=== PATIENT | female | born 1950 | race Caucasian/White ===

== ENCOUNTER 2017-06-21 12:39 | Emergency (ER) | payer MEDICARE, OTHER ==
[~2017-06-21] VITALS: Ht 160 cm; Wt 49.4 kg
[~2017-06-21 12:39] MED LIST: NUCYNTA75 MG PO; SPIRIVA18 MCG INH; TRAZODONE HCL50 MG PO; VENTOLIN HFA18 GM INH
[2017-06-21] MEDS ORDERED: AZITHROMYCIN250 MG PO (13:06)
[2017-06-21] MEDS ORDERED: BROMFED DM COU118 ML PO (13:06)
[2017-06-21] MEDS ORDERED: CRESTOR10 MG (14:40)
[2017-06-21] MEDS ORDERED: PLAQUENIL200 MG PO (14:40)
[2017-06-21] MEDS ORDERED: PREDNISONE10 MG PO (14:40)
[2017-06-21] MEDS ORDERED: LISINOPRIL10 MG PO (14:40)
[2017-06-21] MEDS ORDERED: CELLCEPT200 MG/1 M (14:40)
== END 2017-06-21 13:13 | disposition home or self-care (01) ==
LOC: FSED 12:39
DX: J00 Acute nasopharyngitis [common cold] (principal); J20.8 Acute bronchitis due to other specified organisms; G89.29 Other chronic pain; J44.9 Chronic obstructive pulmonary disease, unspecified; E78.5 Hyperlipidemia, unspecified; J84.10 Pulmonary fibrosis, unspecified; I73.00 Raynaud's syndrome without gangrene
CPT/HCPCS: 99282

== ENCOUNTER 2018-04-13 12:17 | Emergency (ER) | payer MEDICARE, OTHER ==
[~2018-04-13] VITALS: Ht 160 cm; Wt 50.3 kg
[~2018-04-13 12:17] MED LIST changes: +AUGMENTIN 500-1 EACH PO; +AZITHROMYCIN250 MG PO; +BROMFED DM COU118 ML PO; +CELLCEPT200 MG/1 M; +CELLCEPT500 MG PO; +CRESTOR10 MG; +LISINOPRIL10 MG PO; +NORCO 5-325 TA1 EACH PO; +PLAQUENIL200 MG PO; +PREDNISONE10 MG PO
--- OUTSIDE RECORDS SUMMARY | 2018-04-13 12:20 | XMS REPORT ---
Author Author Tracey High Organization [employer] Address Unknown Phone Unavailable Care Team Providers Care Sumo Wrestler Name Role Phone GoldygiuseppeTracey CP Unavailable Allergies, Adverse Reactions, Alerts Substance Reaction Event Type Celebrex Heartburn Non Drug Allergy Problems Problem Type Condition Code Onset Dates Condition Status Assessment Dysuria R30.0 Active Assessment Raynaud''s phenomenon without gangrene I73.00 Active Assessment ILD (interstitial lung disease) J84.9 Active Assessment Osteoporosis screening Z13.820 Active Problem Other insomnia G47.09 Active Problem ILD (interstitial lung disease) J84.9 Active Problem Osteoporosis M81.0 Active Problem Inflammatory arthritis M19.90 Active Assessment MCTD (mixed connective tissue disease) M35.1 Active Problem Raynaud''s phenomenon without gangrene I73.00 Active Problem MCTD (mixed connective tissue disease) M35.1 Active Medications Medication Code System Code Instructions Start Date End Date Status Dosage Hydroxychloroquine Sulfate [facility] 73169862407 200 MG Orally Once a day Mar 13, 2017 Active 1 tablet with food or milk PredniSONE NDC 0 10 MG Orally Once a day May 05, 2017 Active 4 tabs daily x 2 wks then 3 tabs daily x 2 weeks then 2 tabs daily Albuterol Sulfate [facility] [address]-05 108 (90 Base) MCG/ACT Inhalation every 4 hrs Active 1 puff as needed Mycophenolate Mofetil ND 76846483436 500 MG Orally Twice a day Apr 15, 2017 Active 1 tablets twice a day for 1 week then 2 tablets Spiriva HandiHaler ND 44842122312 18 MCG Inhalation Active as directed Trazodone HCl ND 20606633089 100 MG Orally Once a day Active 1 tablet at bedtime Ventolin HFA ND 21579155295 108 (90 Base) MCG/ACT Inhalation every 4 hrs Active 2 puffs as needed Nucynta ER ND 94155343601 75 MG Orally every 12 hrs Active 1 tablet Lisinopril [facility] 42566495848 2.5 MG Orally Once a day Apr 16, 2017 Active 1 tablet Bactrim DS [facility] 69178240709 800-160 MG Orally Thursday, Thursday, FridaysMay 05, 2017 Active 1 tablet Vital Signs Date/Time: May 05, 2017 BMI 18.60 Index Weight 105 lbs Height 63 in Temperature 97.7 F Cardiac Monitoring Heart Rate 88 /min Blood Pressure Diastolic 78 mm Hg Blood Pressure Systolic 108 mm Hg Results No Known Results Summary Purpose [employer] Submission
--- OUTSIDE RECORDS SUMMARY | 2018-04-13 12:20 | XMS REPORT ---
Author Author Tracey High Organization [employer] Address Unknown Phone Unavailable Care Team Providers Care Assembler Lay Ups Name Role Phone Tracey High CP Unavailable Allergies No Known Allergies Problems Problem Type Condition Code Onset Dates Condition Status Problem Other insomnia G47.09 Active Problem ILD (interstitial lung disease) J84.9 Active Problem Osteoporosis M81.0 Active Problem Inflammatory arthritis M19.90 Active Assessment Osteoporosis M81.0 Active Problem Raynaud''s phenomenon without gangrene I73.00 Active Problem MCTD (mixed connective tissue disease) M35.1 Active Medications Medication Code System Code Instructions Start Date End Date Status Dosage Alendronate Sodium [facility] 05141098162 70 MG Orally Once a week May 06, 2017 Active 1 tablet Results No Known Results Summary Purpose [employer] Submission
--- OUTSIDE RECORDS SUMMARY | 2018-04-13 12:20 | XMS REPORT ---
Author Felix Parmar Organization [employer] Address Unknown Phone Unavailable Care Team Providers Care Bellmaker Name Role Phone Felix Benavidez CP Unavailable Allergies No Known Allergies Problems Problem Type Condition Code Onset Dates Condition Status Problem Other insomnia G47.09 Active Problem ILD (interstitial lung disease) J84.9 Active Problem Osteoporosis M81.0 Active Problem Inflammatory arthritis M19.90 Active Problem Raynaud''s phenomenon without gangrene I73.00 Active Problem MCTD (mixed connective tissue disease) M35.1 Active Medications Medication Code System Code Instructions Start Date End Date Status Dosage Alendronate Sodium [facility] 12974457076 70 MG Orally Once a week May 06, 2017 Active 1 tablet Results No Known Results Summary Purpose [employer] Submission
--- OUTSIDE RECORDS SUMMARY | 2018-04-13 12:20 | XMS REPORT ---
Author Author Tracey High Organization [employer] Address Unknown Phone Unavailable Care Team Providers Care Lead Network Engineer Name Role Phone GoldygiuseppeFaustinahal CP Unavailable Allergies, Adverse Reactions, Alerts Substance Reaction Event Type Celebrex Heartburn Non Drug Allergy Problems Problem Type Condition Code Onset Dates Condition Status Assessment Other insomnia G47.09 Active Assessment ILD (interstitial lung disease) J84.9 Active Assessment Raynaud''s phenomenon without gangrene I73.00 Active Problem ILD (interstitial lung disease) J84.9 Active Problem Raynaud''s phenomenon without gangrene I73.00 Active Problem Other insomnia G47.09 Active Assessment Inflammatory arthritis M19.90 Active Assessment MCTD (mixed connective tissue disease) M35.1 Active Problem MCTD (mixed connective tissue disease) M35.1 Active Problem Inflammatory arthritis M19.90 Active Medications Medication Code System Code Instructions Start Date End Date Status Dosage Spiriva HandiHaler [facility] 61874477759 2.5 MCG Inhalation Active as directed Trazodone HCl ND 77158496936 100 MG Orally Once a day Active 1 tablet at bedtime Hydroxychloroquine Sulfate ND 78864819799 200 MG Orally Once a day Mar 13, 2017 Active 1 tablet with food or milk PredniSONE NDC 0 10 MG Orally Once a day Apr 16, 2017 Active 5 tablets Lisinopril ND 60395896677 2.5 MG Orally Once a day Apr 16, 2017 Active 1 tablet Bactrim DS ND 00953824993 800-160 MG Orally on Wednesdays and FridaysApr 16, 2017 Active 1 tablet Mycophenolate Mofetil ND 89961545091 500 MG Orally Twice a day Apr 15, 2017 Active 2 tablets twice a day for 1 week then 3 tablets Melatonin ND 71048490308 1 MG Orally Once a day OTC Apr 15, 2017 Active 1-3 tablets at bedtime as needed with food Nucynta ER ND 36566726964 75 MG Orally every 12 hrs Active 1 tablet Ventolin HFA [facility] 74481616516 108 (90 Base) MCG/ACT Inhalation every 4 hrs Active 2 puffs as needed Vital Signs Date/Time: Apr 15, 2017 BMI 18.78 Index Weight 106 lbs Height 63 in Temperature 98.6 F Cardiac Monitoring Heart Rate 104 /min Blood Pressure Diastolic 86 mm Hg Blood Pressure Systolic 142 mm Hg Results No Known Results Summary Purpose [employer] Submission
--- OUTSIDE RECORDS SUMMARY | 2018-04-13 12:20 | XMS REPORT ---
Author Felix Parmar Organization [employer] Address Unknown Phone Unavailable Care Team Providers Care Engineering Leader Name Role Phone Felix Benavidez CP Unavailable Allergies No Known Allergies Problems Problem Type Condition Code Onset Dates Condition Status Problem Vitamin D deficiency E55.9 Active Problem Other insomnia G47.09 Active Problem Osteoporosis M81.0 Active Problem MCTD (mixed connective tissue disease) M35.1 Active Problem Inflammatory arthritis M19.90 Active Problem ILD (interstitial lung disease) J84.9 Active Problem Raynaud''s phenomenon without gangrene I73.00 Active Medications No Known Medications Results No Known Results Summary Purpose [employer] Submission
--- OUTSIDE RECORDS SUMMARY | 2018-04-13 12:20 | XMS REPORT ---
Author Author Bruce Johnson [facility] [place] [employer] Address Unknown Phone Unavailable Care Team Providers Care General Ledger Bookkeeper Name Role Phone Bruce Johnson CP Unavailable Allergies No Known Allergies Problems [...] Date End Date Status Dosage Hydroxychloroquine Sulfate [facility] 52682121055 200 MG Orally Once a day May 21, 2017 Active 1 tablet with food or milk Results No Known Results Summary Purpose [employer] Submission
--- OUTSIDE RECORDS SUMMARY | 2018-04-13 12:20 | XMS REPORT ---
Author Felix Parmra Organization [employer] Address Unknown Phone Unavailable Care Team Providers Care Pastry Supervisor Name Role Phone Felix Benavidez CP Unavailable Allergies No Known Allergies Problems Problem Type Condition Code Onset Dates Condition Status Problem ILD (interstitial lung disease) J84.9 Active Problem Raynaud''s phenomenon without gangrene I73.00 Active Problem Other insomnia G47.09 Active Problem MCTD (mixed connective tissue disease) M35.1 Active Problem Inflammatory arthritis M19.90 Active Medications No Known Medications Results No Known Results Summary Purpose [employer] Submission
--- OUTSIDE RECORDS SUMMARY | 2018-04-13 12:20 | XMS REPORT ---
Author Author Bruce Johnson [facility] [employer] Address Unknown Phone Unavailable Care Team Providers Care Job Analysis Manager Name Role Phone Bruce Johnson CP Unavailable [...] Instructions Start Date End Date Status Dosage Fluconazole [facility] 48253059161 200 MG Orally Once a day May 22, 2017 Active 1 tablet Results No Known Results Summary Purpose [employer] Submission
--- OUTSIDE RECORDS SUMMARY | 2018-04-13 12:20 | XMS REPORT ---
Author Author Tracey High Organization [employer] Address Unknown Phone Unavailable Care Team Providers Care Hair Designer Name Role Phone GoldygiuseppeTracey CP Unavailable Allergies, Adverse Reactions, Alerts Substance Reaction Event Type Celebrex Heartburn Non Drug Allergy Problems Problem Type Condition Code Onset Dates Condition Status Problem MCTD (mixed connective tissue disease) M35.1 Active Problem Inflammatory arthritis M19.90 Active Problem Raynaud''s phenomenon without gangrene I73.00 Active Assessment Raynaud''s phenomenon without gangrene I73.00 Active Assessment Long-term use of high-risk medication Z79.899 Active Assessment Inflammatory arthritis M19.90 Active Assessment MCTD (mixed connective tissue disease) M35.1 Active Medications Medication Code System Code Instructions Start Date End Date Status Dosage Nucynta ER ND 17220587563 100 MG Orally every 12 hrs Active 1 tablet Ventolin HFA ND 07200219332 108 (90 Base) MCG/ACT Inhalation every 4 hrs Active 2 puffs as needed Spiriva HandiHaler ND 96584282681 18 MCG Inhalation Active as directed Trazodone HCl ND 69389164476 100 MG Orally Once a day Active 1 tablet at bedtime Hydroxychloroquine Sulfate ND 28199886992 200 MG Orally Once a day Mar 13, 2017 Active 1 tablet with food or milk Vital Signs Date/Time: Apr 02, 2017 BMI 18.78 Index Weight 106 lbs Height 63 in Temperature 97.5 F Cardiac Monitoring Heart Rate 100 /min Blood Pressure Diastolic 88 mm Hg Blood Pressure Systolic 126 mm Hg Results No Known Results Summary Purpose [employer] Submission
--- OUTSIDE RECORDS SUMMARY | 2018-04-13 12:20 | XMS REPORT ---
Author Felix Parmar Organization [employer] Address Unknown Phone Unavailable Care Team Providers Care Seismograph Recorder Name Role Phone Felix Benavidez CP Unavailable Allergies No Known Allergies Problems Problem Type Condition Code Onset Dates Condition Status Problem MCTD (mixed connective tissue disease) M35.1 Active Problem Inflammatory arthritis M19.90 Active Problem Raynaud''s phenomenon without gangrene I73.00 Active Medications No Known Medications Results No Known Results Summary Purpose [employer] Submission
--- OUTSIDE RECORDS SUMMARY | 2018-04-13 12:20 | XMS REPORT ---
Author Felix Parmar Organization [employer] Address Unknown Phone Unavailable Care Team Providers Care Insurance Auditor Name Role Phone Felix Benavidez CP Unavailable [...] Instructions Start Date End Date Status Dosage Bactrim DS [facility] 90545965779 800-160 MG Orally Twice a day May 05, 2017 Active 1 tablet Results No Known Results Summary Purpose [employer] Submission
--- OUTSIDE RECORDS SUMMARY | 2018-04-13 12:20 | XMS REPORT ---
Author Author Tracey High Organization [employer] Address Unknown Phone Unavailable Care Team Providers Care Resident Program Specialist Name Role Phone Tracey High CP Unavailable Allergies No Known Allergies Problems Problem Type Condition Code Onset Dates Condition Status Problem MCTD (mixed connective tissue disease) M35.1 Active Problem Inflammatory arthritis M19.90 Active Problem Raynaud''s phenomenon without gangrene I73.00 Active Medications No Known Medications Results No Known Results Summary Purpose [employer] Submission
--- OUTSIDE RECORDS SUMMARY | 2018-04-13 12:20 | XMS REPORT ---
Author Author Bruce Johnson Organization [employer] Address Unknown Phone Unavailable Care Team Providers Care Debt Management Counselor Name Role Phone Bruce Johnson CP Unavailable Allergies No Known Allergies Problems Problem Type Condition Code Onset Dates Condition Status Problem Vitamin D deficiency E55.9 Active Problem Other insomnia G47.09 Active Problem Osteoporosis M81.0 Active Problem MCTD (mixed connective tissue disease) M35.1 Active Problem Inflammatory arthritis M19.90 Active Problem ILD (interstitial lung disease) J84.9 Active Problem Raynaud''s phenomenon without gangrene I73.00 Active Medications Medication Code System Code Instructions Start Date End Date Status Dosage Vitamin D (Ergocalciferol) [facility] [id number] UNIT Orally once a week June 17, 2017 September 15, 2017 Active 1 capsule Results No Known Results Summary Purpose [employer]Works Submission
--- OUTSIDE RECORDS SUMMARY | 2018-04-13 12:20 | XMS REPORT | Continuity of Care Document ---
Author Author [facility] Interface Address Unknown Phone Unavailable Problems Problem Status Onset Date Classification Date Reported Comments Source MCTD Active Problem 04/09/2018 Reginaldo Benavidez Inflammatory arthritis Active Problem 04/09/2018 Reginaldo Benavidez Raynaud''s phenomenon without gangrene Active Problem 04/09/2018 Reginaldo Benavidez Other insomnia Active Problem 04/09/2018 Reginaldo Benavidez ILD Active Problem 04/09/2018 Reginaldo Benavidez Osteoporosis Active Problem 04/09/2018 Reginaldo Benavidez Dysuria Active Diagnosis 05/07/2017 Reginaldo Benavidez Osteoporosis screening Active Diagnosis 05/07/2017 Reginaldo Benavidez Long-term use of high-risk medication Active Diagnosis 03/24/2018 Reginaldo Benavidez Vitamin D deficiency Active Problem 04/09/2018 Reginaldo Benavidez Osteoporosis with current pathological fracture, unspecified osteoporosis type, sequela Active Problem 04/09/2018 Reginaldo Benavidez COPD Active Problem 08/27/2017 [facility] Pneumonia Active Problem 08/27/2017 [facility] Medications Medication Details Route Status Patient Instructions Ordering Provider Order Date Source Mycophenolate Mofetil 3 Tablets Orally Active 500 MG Orally Twice a day Alex 03/22/2018 Reginaldo Benavidez Mycophenolate Mofetil 3 Tabletss Orally Active 500 MG Orally Twice a day Alex 10/21/2017 Reginaldo Benavidez Prolia as directed Subcutaneous Active 60 MG/ML Subcutaneous Alex 09/14/2017 Reginaldo Benavidez Calcitonin ([place]) 1 puff Nasally Active 200 UNIT/ACT Nasally Once a day Alex 09/14/2017 Reginaldo Benavidez Lisinopril 10 Mg Tablet, 10 Mg Oral Daily Active 08/25/2017 [facility] Mycophenolate Mofetil (Cellcept) 200 Mg/1 Ml Susp.recon, Active 08/25/2017 [facility] Prednisone 10 Mg Tab, 10 Mg Oral Active 08/25/2017 [facility] Rosuvastatin Calcium (Crestor) 10 Mg Tab, Active 08/25/2017 [facility] Tapentadol Hcl (Nucynta) 75 Mg Tablet, 75 Mg Oral Three Times A Day as needed for Pain Active 08/25/2017 [facility] Mycophenolate Mofetil 3 tablets Orally Active 500 MG Orally Twice a day Alex 08/13/2017 Reginaldo Benavidez Azithromycin (Z-Brando) 250 Mg Tablet, 1 Pkt Oral .as Directed Active [place] 06/21/2017 [facility] D-Methorphan Hb/P-Epd Hcl/Bpm (Bromfed Dm Cough Syrup) 118 Ml Syrup, 5-10 Ml Oral Every 4 Hours as needed for Cough Active Ramsey 06/21/2017 [facility] Vitamin D (Ergocalciferol) 1 capsule Orally Active 14181 UNIT Orally once a week Alex 06/17/2017 Reginaldo Benavidez Fluconazole 1 tablet Orally Active 200 MG Orally Once a day [facility] 05/22/2017 Reginaldo Benavidez Hydroxychloroquine Sulfate 1 tablet with food or milk Orally Active 200 MG Orally Once a day Alex 05/21/2017 Reginaldo Benavidez Alendronate Sodium 1 tablet Orally Active 70 MG Orally Once a week [place] 05/06/2017 Reginaldo Benavidez PredniSONE 10mg x 4wks, 7.5mg x 4wks, 5mg daily Orally Active 5 MG Orally Once a day Alex 05/05/2017 Reginaldo Benavidez Bactrim DS 1 tablet Orally Active 800-160 MG Orally Twice a day [place] 05/05/2017 Reginaldo Benavidez Lisinopril 1 tablet Orally Active 2.5 MG Orally Once a day Alex 04/16/2017 Reginaldo Benavidez PredniSONE 5 tablets Orally Active 10 MG Orally Once a day [facility] 04/16/2017 Reginaldo Benavidez Bactrim DS 1 tablet Orally Active 800-160 MG Orally on Wednesdays and Fridays [facility] 04/16/2017 Reginaldo Benavidez Mycophenolate Mofetil 2 tablets Orally Active 500 MG Orally Twice a day [facility] 04/15/2017 Reginaldo Benavidez Melatonin 1-3 tablets at bedtime as needed with food Orally Active 1 MG Orally Once a day [facility] 04/15/2017 Reginaldo Benavidez Hydroxychloroquine Sulfate 1 tablet with food or milk Orally Active 200 MG Orally Once a day [place] 03/13/2017 Reginaldo Benavidez Albuterol Sulfate 1 puff as needed Inhalation Active 108 (90 Base) MCG/ACT Inhalation every 4 hrs Alex Reginaldo Benavidez Spiriva HandiHaler as directed Inhalation Active 18 MCG Inhalation Alex Reginaldo Benavidez Trazodone HCl 1 tablet at bedtime Orally Active 100 MG Orally Once a day Alex Reginaldo Benavidez Ventolin HFA 2 puffs as needed Inhalation Active 108 (90 Base) MCG/ACT Inhalation every 4 hrs Alex Reginaldo Benavidez Nucynta ER 1 tablet Orally Active 75 MG Orally every 12 hrs Alex Reginaldo Benavidez Albuterol Sulfate (Ventolin Hfa) 18 Gm Hfa.aer.ad Every 4 Hours as needed for Shortness Of Breath Active [facility] Amoxicillin/Potassium Clav (Augmentin 500-125 Tablet) 1 Each Tablet Three Times A Day Active [facility] Hydrocodone Bit/Acetaminophen ([place] 5-325 Tablet) 1 Each Tablet Every 4 Hours as needed for Pain Active [facility] Hydroxychloroquine Sulfate (Plaquenil) 200 Mg Tab Daily Active [facility] Mycophenolate Mofetil (Cellcept) 500 Mg Tablet Twice A Day Active [facility] Tiotropium Muir (Spiriva) 18 Mcg Cap.w.dev Daily Active [facility] Trazodone Hcl 50 Mg Tablet Bedtime Active [facility] Allergies, Adverse Reactions, Alerts Substance Category Reaction Severity Reaction type Status Date Reported Comments Source No Known Drug Allergies Mild Allergy to Substance Active 08/25/2017 [facility] Celebrex Adverse Reaction Heartburn Adverse Reaction Active 09/14/2017 Reginaldo Benavidez Immunizations Immunization Date Given Site Status Last Updated Comments Source Results Order Name Results Value Reference Range Date Interpretation Comments Source Automated blood basophil count (count/volume) Automated blood basophil count (count/volume) 0.0 0.0 - 0.1 08/26/2017 [facility] Automated blood basophil count as percentage of total leukocytes Automated blood basophil count as percentage of total leukocytes 0.2 0.0 - 1.0 08/26/2017 [facility] Automated blood eosinophil count Automated blood eosinophil count 0.0 0.0 - 0.4 08/26/2017 [facility] Automated blood eosinophil count as percentage of total leukocytes Automated blood eosinophil count as percentage of total leukocytes 0.0 0.0 - 6.0 08/26/2017 [facility] Automated blood hematocrit (volume fraction) Automated blood hematocrit (volume fraction) 36.3 34.2 - 44.1 08/26/2017 [facility] Automated blood lymphocyte count as percentage ot total leukocytes Automated blood lymphocyte count as percentage ot total leukocytes 11.8 18.0 - 39.1 08/26/2017 [facility] Automated blood monocyte count as percentage of total leukocytes Automated blood monocyte count as percentage of total leukocytes 7.7 4.4 - 11.3 08/26/2017 [facility] Automated blood neutrophil count Automated blood neutrophil count 4.4 2.1 - 6.9 08/26/2017 [facility] Automated blood platelet count (count/volume) Automated blood platelet count (count/volume) 112 140 - 360 08/26/2017 [facility] Automated blood segmented neutrophil count as percentage of total leukocytes Automated blood segmented neutrophil count as percentage of total leukocytes 80.1 38.7 - 80.0 08/26/2017 [facility] Automated erythrocyte mean corpuscular hemoglobin (mass per erythrocyte) Automated erythrocyte mean corpuscular hemoglobin (mass per erythrocyte) 31.0 28 - 32 08/26/2017 [facility] Automated erythrocyte mean corpuscular hemoglobin concentration measurement (mass/volume) Automated erythrocyte mean corpuscular hemoglobin concentration measurement (mass/volume) 33.6 31 - 35 08/26/2017 [facility] Automated erythrocyte mean corpuscular volume Automated erythrocyte mean corpuscular volume 92.4 81 - 99 08/26/2017 [facility] Blood erythrocytes automated count (number/volume) Blood erythrocytes automated count (number/volume) 3.93 3.6 - 5.1 08/26/2017 [facility] Blood hemoglobin measurement (moles/volume) Blood hemoglobin measurement (moles/volume) 12.2 12.0 - 16.0 08/26/2017 [facility] Blood leukocytes automated count (number/volume) Blood leukocytes automated count (number/volume) 5.44 4.8 - 10.8 08/26/2017 [facility] Blood lymphocytes count (number/volume) Blood lymphocytes count (number/volume) 0.6 1.0 - 3.2 08/26/2017 [facility] Blood monocytes automated count (number/volume) Blood monocytes automated count (number/volume) 0.4 0.2 - 0.8 08/26/2017 [facility] Estimated glomerular filtration rate (GFR) determination Estimated glomerular filtration rate (GFR) determination null 60 08/26/2017 [facility] Glucose measurement Glucose measurement 97 74 - 118 08/26/2017 [facility] Serum or plasma anion gap Serum or plasma anion gap 11.2 8 - 16 08/26/2017 [facility] Serum or plasma calcium measurement (mass/volume) Serum or plasma calcium measurement (mass/volume) 9.3 8.4 - 10.2 08/26/2017 [facility] Serum or plasma carbon dioxide, total measurement (moles/volume) Serum or plasma carbon dioxide, total measurement (moles/volume) 24 22 - 29 08/26/2017 [facility] Serum or plasma chloride measurement (moles/volume) Serum or plasma chloride measurement (moles/volume) 108 98 - 107 08/26/2017 [facility] Serum or plasma creatinine measurement (mass/volume) Serum or plasma creatinine measurement (mass/volume) 0.65 0.57 - 1.11 08/26/2017 [facility] Serum or plasma potassium measurement (moles/volume) Serum or plasma potassium measurement (moles/volume) 4.2 3.5 - 5.1 08/26/2017 [facility] Serum or plasma sodium measurement (moles/volume) Serum or plasma sodium measurement (moles/volume) 139 136 - 145 08/26/2017 [facility] Serum or plasma urea nitrogen measurement (mass/volume) Serum or plasma urea nitrogen measurement (mass/volume) 10 7 - 26 08/26/2017 [facility] Serum or plasma urea nitrogen/creatinine mass ratio Serum or plasma urea nitrogen/creatinine mass ratio 15 6 - 25 08/26/2017 [facility] Red Cell Distribution Width 12.7 11.7 - 14.4 08/26/2017 [facility] IM GRANULOCYTES % 0.2 0.0 - 1.0 08/26/2017 [facility] Absolute Immature Granulocyte (auto 0.01 0 - 0.1 08/26/2017 [facility] Blood culture Blood culture NO GROWTH AFTER 48 HOURS 08/25/2017 [facility] Plasma globulin measurement (mass/volume) Plasma globulin measurement (mass/volume) 3.9 2.3 - 3.5 08/25/2017 [facility] Serum or plasma alanine aminotransferase measurement (enzymatic activity/volume) Serum or plasma alanine aminotransferase measurement (enzymatic activity/volume) 17 0 - 55 08/25/2017 [facility] Serum or plasma albumin measurement (mass/volume) Serum or plasma albumin measurement (mass/volume) 4.2 3.5 - 5.0 08/25/2017 [facility] Serum or plasma albumin/globulin mass ratio Serum or plasma albumin/globulin mass ratio 1.1 0.8 - 2.0 08/25/2017 [facility] Serum or plasma alkaline phosphatase measurement (enzymatic activity/volume) Serum or plasma alkaline phosphatase measurement (enzymatic activity/volume) 68 40 - 150 08/25/2017 [facility] Serum or plasma creatine kinase MB measurement (mass/volume) Serum or plasma creatine kinase MB measurement (mass/volume) 0.70 0 - 5.0 08/25/2017 [facility] Serum or plasma creatine kinase measurement (enzymatic activity/volume) Serum or plasma creatine kinase measurement (enzymatic activity/volume) 23 29 - 168 08/25/2017 [facility] Serum or plasma protein measurement (mass/volume) Serum or plasma protein measurement (mass/volume) 8.1 6.5 - 8.1 08/25/2017 [facility] Serum or plasma total bilirubin measurement (mass/volume) Serum or plasma total bilirubin measurement (mass/volume) 0.5 0.2 - 1.2 08/25/2017 [facility] Troponin I measurement by highly sensitive enzyme immunoassay Troponin I measurement by highly sensitive enzyme immunoassay null 0 - 0.300 08/25/2017 [facility] Aspartate Amino Transf (AST/SGOT) 33 5 - 34 08/25/2017 [facility] B-Type Natriuretic Peptide 14.0 0 - 100 08/25/2017 [facility] Vital Signs Vital Sign Value Date Comments Source Weight 110 09/14/2017 Reginaldo Francoer Height 62 09/14/2017 Reginaldo Benavidez Temperature Oral (F) 97.1 F 09/14/2017 Reginaldo Benavidez Heart Rate 84 09/14/2017 Reginaldo Benavidez Diastolic (mm Hg) 70 09/14/2017 Reginaldo Benavidez Systolic (mm Hg) 124 09/14/2017 Reginaldo Benavidez Weight 109 06/16/2017 Reginaldo Benavidez Height 63 06/16/2017 Reginaldo Benavidez Temperature Oral (F) 98.3 F 06/16/2017 Reginaldo Benavidez Heart Rate 86 06/16/2017 Reginaldo Benavidez Diastolic (mm Hg) 64 06/16/2017 Reginaldo Benavidez Systolic (mm Hg) 110 06/16/2017 Reginaldo Benavidez Weight 105 05/05/2017 Reginaldo Benavidez Height 63 05/05/2017 Reginaldo Benavidez Temperature Oral (F) 97.7 F 05/05/2017 Reginaldo Benavidez Heart Rate 88 05/05/2017 Reginaldo Benavidez Diastolic (mm Hg) 78 05/05/2017 Reginaldo Benavidez Systolic (mm Hg) 108 05/05/2017 Reginaldo Benavidez Weight 106 04/15/2017 Reginaldo Benavidez Height 63 04/15/2017 Reginaldo Benavidez Temperature Oral (F) 98.6 F 04/15/2017 Reginaldo Benavidez Heart Rate 104 04/15/2017 Reginaldo Benavidez Diastolic (mm Hg) 86 04/15/2017 Reginaldo Benavidez Systolic (mm Hg) 142 04/15/2017 Reginaldo Benavidez Weight 106 04/02/2017 Reginaldo Benavidez Height 63 04/02/2017 Reginaldo Benavidez Temperature Oral (F) 97.5 F 04/02/2017 Reginaldo Benavidez Heart Rate 100 04/02/2017 Reginaldo Benavidez Diastolic (mm Hg) 88 04/02/2017 Reginaldo Benavidez Systolic (mm Hg) 126 04/02/2017 Reginaldo Benavidez Encounters Location Location Details Encounter Type Encounter Number Reason For Visit Attending Provider ADM Date DC Date Status Source Departed Emergency Room [id number] DEEPIKA CORONA MD 06/21/2017 06/21/2017 [facility] Discharged Inpatient [id number] ANDREA DOW MD 08/26/2017 08/27/2017 [facility] Procedures Procedure Code Date Perfomer Comments Source Computed tomography of chest without contrast [id number] 08/25/2017 [facility]
--- OUTSIDE RECORDS SUMMARY | 2018-04-13 12:20 | XMS REPORT ---
Author Author Bruce Johnson [facility] eClinicalWorks Address Unknown Phone Unavailable Care Team Providers Care Post Office Manager Name Role Phone Bruce Johnson CP Unavailable Allergies, Adverse Reactions, Alerts Substance Reaction Event Type Celebrex Heartburn Non Drug Allergy Problems Problem Type Condition Code Onset Dates Condition Status Assessment Osteoporosis M81.0 Active Assessment MCTD (mixed connective tissue disease) M35.1 Active Assessment ILD (interstitial lung disease) J84.9 Active Assessment Vitamin D deficiency E55.9 Active Problem Vitamin D deficiency E55.9 Active Problem Other insomnia G47.09 Active Problem Osteoporosis M81.0 Active Problem MCTD (mixed connective tissue disease) M35.1 Active Problem Inflammatory arthritis M19.90 Active Problem ILD (interstitial lung disease) J84.9 Active Problem Raynaud''s phenomenon without gangrene I73.00 Active Medications Medication Code System Code Instructions Start Date End Date Status Dosage Ventolin HFA ND 03324176935 108 (90 Base) MCG/ACT Inhalation every 4 hrs Active 2 puffs as needed Spiriva HandiHaler ND 12036898392 18 MCG Inhalation Active as directed Hydroxychloroquine Sulfate ND 22115755985 200 MG Orally Once a day May 21, 2017 Active 1 tablet with food or milk Nucynta ER ND 10817005100 75 MG Orally every 12 hrs Active 1 tablet Trazodone HCl ND 26698489982 100 MG Orally Once a day Active 1 tablet at bedtime Albuterol Sulfate [facility] [address]-89 108 (90 Base) MCG/ACT Inhalation every 4 hrs Active 1 puff as needed Lisinopril ND 09082406979 2.5 MG Orally Once a day Apr 16, 2017 Active 1 tablet PredniSONE ND 0 5 MG Orally Once a day May 05, 2017 Active 10mg x 4wks, 7.5mg x 4wks, 5mg daily Mycophenolate Mofetil ND 37723322960 500 MG Orally Twice a day Apr 15, 2017 Active 2 tablets Vital Signs Date/Time: June 16, 2017 BMI 19.31 Index Weight 109 lbs Height 63 in Temperature 98.3 F Cardiac Monitoring Heart Rate 86 /min Blood Pressure Diastolic 64 mm Hg Blood Pressure Systolic 110 mm Hg Results No Known Results Summary Purpose eClinicalWorks Submission
--- OUTSIDE RECORDS SUMMARY | 2018-04-13 12:21 | XMS REPORT ---
Author Author Bruce Johnson [facility] eClinicalWorks Address Unknown Phone Unavailable Care Team Providers Care Injection Maintenance Technician Name Role Phone Bruce Johnson CP Unavailable Allergies No Known Allergies Problems Problem Type Condition Code Onset Dates Condition Status Assessment Long-term use of high-risk medication Z79.899 Active Problem Inflammatory arthritis M19.90 Active Assessment Osteoporosis with current pathological fracture, unspecified osteoporosis type, sequela M80.00XS Active Problem Osteoporosis M81.0 Active Problem Vitamin D deficiency E55.9 Active Problem Osteoporosis with current pathological fracture, unspecified osteoporosis type, sequela M80.00XS Active Problem Raynaud''s phenomenon without gangrene I73.00 Active Problem MCTD (mixed connective tissue disease) M35.1 Active Problem Other insomnia G47.09 Active Problem ILD (interstitial lung disease) J84.9 Active Medications Medication Code System Code Instructions Start Date End Date Status Dosage Mycophenolate Mofetil [facility] 92563668718 500 MG Orally Twice a day Mar 22, 2018 Active 3 Tablets Results No Known Results Summary Purpose eClinicalWorks Submission
--- OUTSIDE RECORDS SUMMARY | 2018-04-13 12:21 | XMS REPORT ---
Author Felix Parmar Organization eClinicalWorks Address Unknown Phone Unavailable Care Team Providers Care Tower Equipment Installer Name Role Phone Felix Benavidez CP Unavailable Allergies No Known Allergies Problems Problem Type Condition Code Onset Dates Condition Status Problem Inflammatory arthritis M19.90 Active Problem Osteoporosis M81.0 Active Problem Vitamin D deficiency E55.9 Active Problem Osteoporosis with current pathological fracture, unspecified osteoporosis type, sequela M80.00XS Active Problem Raynaud''s phenomenon without gangrene I73.00 Active Problem MCTD (mixed connective tissue disease) M35.1 Active Problem Other insomnia G47.09 Active Problem ILD (interstitial lung disease) J84.9 Active Medications No Known Medications Results No Known Results Summary Purpose eClinicalWorks Submission
--- OUTSIDE RECORDS SUMMARY | 2018-04-13 12:21 | XMS REPORT ---
Author Author Felix Benavidez Organization [employer] Address Unknown Phone Unavailable Care Team Providers Care Custom Frame Assembler Name Role Phone Felix Benavidez CP Unavailable [...]
--- OUTSIDE RECORDS SUMMARY | 2018-04-13 12:21 | XMS REPORT ---
Author Felix Parmar Organization [employer] Address Unknown Phone Unavailable Care Team Providers Care Report Programmer Name Role Phone Felix Benavidez CP Unavailable [...]
--- OUTSIDE RECORDS SUMMARY | 2018-04-13 12:21 | XMS REPORT ---
Author Author Bruce Johnson [facility] eClinicalWorks Address Unknown Phone Unavailable Care Team Providers Care Blueprint Reader Name Role Phone Bruce Johnson CP Unavailable Allergies, Adverse Reactions, Alerts Substance Reaction Event Type Celebrex Heartburn Non Drug Allergy Problems Problem Type Condition Code Onset Dates Condition Status Assessment Inflammatory arthritis M19.90 Active Problem Inflammatory arthritis M19.90 Active Assessment Long-term use of high-risk medication Z79.899 Active Problem Osteoporosis M81.0 Active Problem Vitamin D deficiency E55.9 Active Problem Osteoporosis with current pathological fracture, unspecified osteoporosis type, sequela M80.00XS Active Problem Raynaud''s phenomenon without gangrene I73.00 Active Problem MCTD (mixed connective tissue disease) M35.1 Active Problem Other insomnia G47.09 Active Problem ILD (interstitial lung disease) J84.9 Active Assessment MCTD (mixed connective tissue disease) M35.1 Active Assessment Osteoporosis with current pathological fracture, unspecified osteoporosis type, sequela M80.00XS Active Assessment Vitamin D deficiency E55.9 Active Assessment Raynaud''s phenomenon without gangrene I73.00 Active Medications Medication Code System Code Instructions Start Date End Date Status Dosage Spiriva HandiHaler ND 95929728120 18 MCG Inhalation Active as directed Trazodone HCl ND 26958649099 100 MG Orally Once a day Active 1 tablet at bedtime Ventolin HFA ND 19063598055 108 (90 Base) MCG/ACT Inhalation every 4 hrs Active 2 puffs as needed Prolia ND 81161706087 60 MG/ML Subcutaneous September 14, 2017 Active as directed Calcitonin ([place]) ND 91137612840 200 UNIT/ACT Nasally Once a day September 14, 2017 Inactive 1 puff Vitamin D (Ergocalciferol) ND 08493980005 54951 UNIT Orally once a week June 17, 2017 Active 1 capsule Albuterol Sulfate [facility] [address]-44 108 (90 Base) MCG/ACT Inhalation every 4 hrs Active 1 puff as needed Mycophenolate Mofetil [facility] 98422806834 500 MG Orally Twice a day August 13, 2017 Active 3 tablets Hydroxychloroquine Sulfate [facility] 00746198847 200 MG Orally Once a day May 21, 2017 Active 1 tablet with food or milk Vital Signs Date/Time: September 14, 2017 BMI 20.12 Index Weight 110 lbs Height 62 in Temperature 97.1 F Cardiac Monitoring Heart Rate 84 /min Blood Pressure Diastolic 70 mm Hg Blood Pressure Systolic 124 mm Hg Results No Known Results Summary Purpose eClinicalWorks Submission
--- OUTSIDE RECORDS SUMMARY | 2018-04-13 12:21 | XMS REPORT ---
Author Author Bruce Johnson Organization eClinicalWorks Address Unknown Phone Unavailable Care Team Providers Care Carcass Washer Name Role Phone Bruce Johnson CP Unavailable [...] Date End Date Status Dosage Mycophenolate Mofetil [facility] 71378679544 500 MG Orally Twice a day August 13, 2017 Active 2 tablets twice a day for 1 week then 3 tablets Results No Known Results Summary Purpose eClinicalWorks Submission
--- OUTSIDE RECORDS SUMMARY | 2018-04-13 12:21 | XMS REPORT ---
Author Felix Parmar Organization [employer] Address Unknown Phone Unavailable Care Team Providers Care Anatomy Professor Name Role Phone Felix Benavidez CP Unavailable [...]
--- OUTSIDE RECORDS SUMMARY | 2018-04-13 12:21 | XMS REPORT ---
Author Author Bruce Johnson [facility] [employer] Address Unknown Phone Unavailable Care Team Providers Care Diversified Crops Farmer Name Role Phone Bruce Johnson CP Unavailable [...] Date End Date Status Dosage Mycophenolate Mofetil [facility] [id number] 500 MG Orally Twice a day Oct 21, 2017 Active 3 Tabletss Results No Known Results Summary Purpose [employer] Submission
--- OUTSIDE RECORDS SUMMARY | 2018-04-13 12:21 | XMS REPORT ---
Author Felix Parmar Organization [employer] Address Unknown Phone Unavailable Care Team Providers Care Psychiatric Specialist Name Role Phone Felix Benavidez CP Unavailable [...]
--- NOTE | 2018-04-13 12:32 | NUR ---
PT WANTED URGENT CARE.
[2018-04-13] MEDS ORDERED: SODIUM CHLORIDE 0.9% 50ML 0 ML ONE (14:33)
[2018-04-13] MEDS ORDERED: IOPAMIDOL 370 MG/ML 200 ML INFUS..BTL INJ ONE (14:34)
== END 2018-04-13 12:33 | disposition short-term general hospital (02) ==
LOC: FSED 12:17
DX: N39.0 Urinary tract infection, site not specified (principal)
CPT/HCPCS: Q9967

== ENCOUNTER 2019-04-24 15:02 | Emergency (ER) | payer MEDICARE, OTHER ==
[~2019-04-24] VITALS: Ht 160 cm; Wt 50.3 kg
--- NOTE | 2019-04-24 17:26 | NUR ---
PATIENT TO ROOM 8
[2019-04-24 18:02] LABS: BASOPHILS # (AUTO) 0.1 (0.0-0.1); BASOPHILS % 0.5 % (0.0-1.0); HEMATOCRIT 44.3 % (34.2-44.1); HEMOGLOBIN 15.3 g/dL (12.0-16.0); LYMPHOCYTES % 17.6 % (18.0-39.1); MEAN CORPUSCULAR HEMOGLOBIN 30.5 pg (28-32); MEAN CORPUSCULAR HGB CONC 34.5 g/dL (31-35); MEAN CORPUSCULAR VOLUME 88.2 fL (81-99); MONOCYTES # (AUTO) 0.9 (0.2-0.8); MONOCYTES % 7.7 % (4.4-11.3); NEUTROPHILS # (AUTO) 8.3 (2.1-6.9); NEUTROPHILS % 73.8 % (38.7-80.0); PLATELET COUNT 186 x10e3/uL (140-360); RED BLOOD COUNT 5.02 x10e6/uL (3.6-5.1); RED CELL DISTRIBUTION WIDTH 12.5 % (11.7-14.4)
[2019-04-24 18:24] LABS: ALANINE AMINOTRANSFERASE 36 IU/L (0-55); ALBUMIN 4.1 g/dL (3.5-5.0); ALBUMIN/GLOBULIN RATIO 0.9 (0.8-2.0); ALKALINE PHOSPHATASE 84 IU/L (40-150); ANION GAP 23.4 mmol/L (8-16); BLOOD UREA NITROGEN 16 mg/dL (7-26); BUN/CREATININE RATIO 17 (6-25); CALCIUM 10.1 mg/dL (8.4-10.2); CARBON DIOXIDE 21 mmol/L (22-29); CHLORIDE 96 mmol/L (98-107); CREATINE KINASE 31 IU/L (29-168); CREATININE, SERUM 0.92 mg/dL (0.57-1.11); EST GLOMERULAR FILTRATION RATE > 60 ML/MIN (60-); GLUCOSE 88 mg/dL (74-118); POTASSIUM 4.4 mmol/L (3.5-5.1); SODIUM 136 mmol/L (136-145)
[2019-04-24 18:27] LABS: INFLUENZAE A&B ANTIGEN (RAPID) NEGATIVE (NEGATIVE); STREPTOCOCCUS GRP A ANTIGEN NEGATIVE (NEGATIVE)
--- NOTE | 2019-04-24 18:47 | Diagnostic Imaging Report ---
EXAMINATION: CHEST 2 VIEWS INDICATION: COPD exacerbation, shortness of breath. COMPARISON: Chest radiograph 08/26/2017. Images from CT chest 08/26/2017, the report is not available at the time of the dictation. FINDINGS: TUBES and LINES: None. LUNGS: Moderate lung volumes with interstitial and patchy opacities in the lower lungs and peripherally. No new consolidation. Focal opacity in the right midlung appears unchanged compared to prior chest radiograph on 08/25/2017. PLEURA: No pleural effusion or pneumothorax. HEART AND MEDIASTINUM: The cardiomediastinal silhouette is unremarkable. There are atherosclerotic calcifications within the aorta. BONES AND SOFT TISSUES: No acute osseous lesion. Soft tissues are unremarkable. UPPER ABDOMEN: No free air under the diaphragm. IMPRESSION: Similar appearance of fibrotic changes of the lungs. No new consolidation. Signed by: Dr. Carl Solis MD on 04/24/2019 6:45 PM
[2019-04-24 19:07] LABS: CLARITY,URINE CLOUDY (CLEAR); COLOR,URINE YELLOW (YELLOW); KETONES,URINE 2+ (NEGATIVE); LEUKOCYTE ESTERASE ,URINE SMALL (NEGATIVE); NITRITE,URINE POSITIVE (NEGATIVE); PROTEIN,URINE DIPSTICK 1+ (NEGATIVE)
[2019-04-24 19:08] LABS: BILIRUBIN,URINE NEGATIVE (NEGATIVE); URINE UROBILINOGEN 1 mg/dL (0.2 - 1)
[2019-04-24 19:14] LABS: BACTERIA,URINE MANY /HPF; RBC,URINE 0-5 /HPF (0-5); WBC,URINE (MAN) 21-50 /HPF (0-5)
[2019-04-24 19:15] LABS: EPITHELIAL CELLS,URINE FEW /LPF
[2019-04-24 20:47] VITALS: BP 134/72
[2019-04-25] MEDS ORDERED: ANORO ELLIPTA1 EACH IH (00:52)
[2019-04-25] MEDS ORDERED: NUCYNTA75 MG PO (00:52)
== END 2019-04-24 20:48 | disposition home or self-care (01) ==
LOC: ER 15:02
DX: R06.00 Dyspnea, unspecified (principal); R05 Cough; J06.9 Acute upper respiratory infection, unspecified; N39.0 Urinary tract infection, site not specified; I10 Essential (primary) hypertension; E78.5 Hyperlipidemia, unspecified; J44.9 Chronic obstructive pulmonary disease, unspecified
CPT/HCPCS: 36415; 71046; 80053; 81001; 82550; 82553; 83518; 83880; 84484; 85025; 87070; 87086; 87400; 93005; 99284

== ENCOUNTER 2019-04-24 21:04 | Inpatient (IN) | payer MEDICARE, OTHER ==
[~2019-04-24] VITALS: Ht 160 cm; Wt 52.4 kg
[2019-04-24] MEDS ORDERED: ONDANSETRON HCL INJ 2MG/ML 2ML 2 MG/ML VIAL IV STA (21:08)
[2019-04-24] MEDS ORDERED: MORPHINE SULFATE INJ 4 MG/ML INJ 1ML IV STA (21:08)
[2019-04-24 22:04] LABS: BASOPHILS # (AUTO) 0.1 (0.0-0.1); BASOPHILS % 0.4 % (0.0-1.0); EOSINOPHILS % 0.1 % (0.0-6.0); HEMATOCRIT 47.4 % (34.2-44.1); HEMOGLOBIN 16.1 g/dL (12.0-16.0); LYMPHOCYTES # (AUTO) 2.7 (1.0-3.2); LYMPHOCYTES % 20.1 % (18.0-39.1); MEAN CORPUSCULAR HEMOGLOBIN 30.2 pg (28-32); MEAN CORPUSCULAR VOLUME 88.9 fL (81-99); MONOCYTES # (AUTO) 1.1 (0.2-0.8); MONOCYTES % 8.1 % (4.4-11.3); NEUTROPHILS # (AUTO) 9.7 (2.1-6.9); NEUTROPHILS % 70.7 % (38.7-80.0); RED BLOOD COUNT 5.33 x10e6/uL (3.6-5.1); RED CELL DISTRIBUTION WIDTH 12.6 % (11.7-14.4)
[2019-04-24 22:10] LABS: INR 0.97; PROTHROMBIN TIME 13.5 seconds (11.9-14.5)
[2019-04-24 22:18] LABS: PLATELET COUNT 238 x10e3/uL (140-360)
[2019-04-24 22:20] LABS: ALBUMIN 4.4 g/dL (3.5-5.0); ALBUMIN/GLOBULIN RATIO 0.9 (0.8-2.0); ANION GAP 24.5 mmol/L (8-16); CALCIUM 10.4 mg/dL (8.4-10.2); CREATININE, SERUM 0.98 mg/dL (0.57-1.11)
[2019-04-24 22:23] LABS: POTASSIUM 3.5 mmol/L (3.5-5.1)
--- NOTE | 2019-04-24 23:42 | Diagnostic Imaging Report ---
Right hip with pelvis AP 3 - views, and right femur 3 views HISTORY: Pain status post fall. COMPARISON: None FINDINGS: Comminuted displaced intertrochanteric fracture of the right femur. Remote fracture of the left femur status post ORIF with hardware partially visualized. Vascular calcifications. Degenerative changes of the bilateral hip and SI joints. Mild degenerative changes of the knee. Multiple phleboliths projected on the lower the pelvis. IMPRESSION: Comminuted displaced intertrochanteric fracture of the right femur. Signed by: Dr. Evelyn Remy M.D. on 04/24/2019 11:40 PM
[2019-04-24] MEDS ORDERED: MORPHINE SULFATE INJ 4 MG/ML INJ 1ML ONE (23:48)
[2019-04-24] MEDS: MORPHINE SULFATE 2 MG/ML SYR 1ML IV PRN (23:54)
[2019-04-24] MEDS: ONDANSETRON HCL INJ 2MG/ML 2ML 2 MG/ML VIAL IV PRN (23:54)
[2019-04-24] MEDS: SODIUM CHLORIDE 0.9% 1000ML 1,000 ML IV SCH (23:54)
[2019-04-25] VITALS (10 sets, daily range): BP systolic 114–178; BP diastolic 63–99
--- NOTE | 2019-04-25 00:05 | NUR ---
Patient recieved via stretcher from ER with at side. Patient transferred with assistance to bed. Oriented to room and environment. Instructed to call on the onset of pain or SOB. Call light within reach. Will continue to monitor closely.
[2019-04-25] MEDS ORDERED: NUCYNTA75 MG PO (00:52)
[2019-04-25] MEDS ORDERED: ANORO ELLIPTA1 EACH IH (00:52)
[2019-04-25] MEDS: ONDANSETRON HCL INJ 2MG/ML 2ML 2 MG/ML VIAL IV PRN ×5 (04:00→20:26)
[2019-04-25] MEDS: MORPHINE SULFATE 2 MG/ML SYR 1ML IV PRN ×3 (04:00→12:20)
--- NOTE | 2019-04-25 05:11 | NUR ---
CHG bed bath given, tolerated fair. Will continue to monitor closely.
--- NOTE | 2019-04-25 07:05 | NUR ---
Bedside report and waling rounds completed with oncoming nurse. Patient in bed resting with call light within reach. No issues or distress noted.
--- NOTE | 2019-04-25 07:29 | NUR ---
PATIENT IN BED RESTING WITH NO DISTRESS. O2 IN PLACE VIA N/C. RIGHT HIP SWELLING, STRAIGHT IN BED. BED IN LOWER POSITION AND LOCKED, CALL LIGHT AT REACH. INSTRUCTED TO CALL FOR ASSISTANCE NEEDED.
[2019-04-25 07:34] LABS: BASOPHILS % 0.3 % (0.0-1.0); HEMATOCRIT 38.8 % (34.2-44.1); HEMOGLOBIN 13.2 g/dL (12.0-16.0); LYMPHOCYTES % 8.7 % (18.0-39.1); MEAN CORPUSCULAR HEMOGLOBIN 30.2 pg (28-32); MEAN CORPUSCULAR VOLUME 88.8 fL (81-99); MONOCYTES % 8.3 % (4.4-11.3); NEUTROPHILS # (AUTO) 9.8 (2.1-6.9); NEUTROPHILS % 82.3 % (38.7-80.0); PLATELET COUNT 169 x10e3/uL (140-360); RED BLOOD COUNT 4.37 x10e6/uL (3.6-5.1); RED CELL DISTRIBUTION WIDTH 12.7 % (11.7-14.4)
[2019-04-25 07:55] LABS: ANION GAP 16.5 mmol/L (8-16); BLOOD UREA NITROGEN 15 mg/dL (7-26); BUN/CREATININE RATIO 19 (6-25); CALCIUM 8.6 mg/dL (8.4-10.2); CARBON DIOXIDE 21 mmol/L (22-29); CHLORIDE 102 mmol/L (98-107); CREATININE, SERUM 0.77 mg/dL (0.57-1.11); EST GLOMERULAR FILTRATION RATE > 60 ML/MIN (60-); GLUCOSE 105 mg/dL (74-118); SODIUM 135 mmol/L (136-145)
[2019-04-25 08:01] LABS: POTASSIUM 4.5 mmol/L (3.5-5.1)
[2019-04-25] MEDS: HYDRALAZINE HCL 20 MG/ML VIAL IV PRN (08:13)
[2019-04-25] MEDS: SODIUM CHLORIDE 0.9% 1000ML 1,000 ML IV SCH ×2 (08:13→20:25)
--- NOTE | 2019-04-25 10:57 | NUR ---
PATIENT NOTED WITH ELEVATED HR. MD NOTIFIED, NEW ORDERS RECEIVED.
--- NOTE | 2019-04-25 11:50 | NUR ---
PATIENT OFF UNIT TO RADIOLOGY.
--- NOTE | 2019-04-25 12:12 | NUR ---
PATIENT BACK TO UNIT FROM RADIOLOGY.
[2019-04-25] MEDS ORDERED: HEPARIN SOD (PORCINE) 5,000 UNIT/ML VIAL SC NR ×2 (12:45→21:00)
--- NOTE | 2019-04-25 13:10 | Diagnostic Imaging Report ---
Exam: PA and lateral chest radiograph Clinical history: Shortness of breath Comparison: April 24, 2019 Findings: There is no evidence of pulmonary consolidation, pleural effusion, or pneumothorax. Increased bilateral interstitial pulmonary opacities are again noted with mild atelectatic changes in the lower lobes likely chronic in nature. The cardiac size is within normal limits. The regional osseous structures are unremarkable. Impression: 1. Bilateral interstitial lung disease again noted. No acute cardiorespiratory changes. Signed by: Dr. Saleem Garcia MD on 04/25/2019 1:07 PM
--- NOTE | 2019-04-25 13:13 | NUR ---
GAMING CATHETER INSERTED ORDERED. DRAINING CLOUDY URINE. PATIENT REPOSITIONED IN BED, CALL LIGHT AT REACH.
--- NOTE | 2019-04-25 13:43 | NUR ---
NOTED PT NPO FOR SURGERY TOMORROW. CALL TO DR. FERNANDEZ FOR INPT ORDER.
[2019-04-25] MEDS ORDERED: CLONAZEPAM 0.5 MG TAB PO PRN (15:45)
[2019-04-25] MEDS: MORPHINE SULFATE INJ 4 MG/ML INJ 1ML IV PRN ×2 (16:20→20:26)
--- NOTE | 2019-04-25 17:54 | Consultation ---
DATE OF CONSULTATION: 04/25/2019 Cardiac Consultation REASON FOR CONSULTATION: Cardiac clearance for right hip surgery. HISTORY OF PRESENT ILLNESS: A 68-year-old lady with known scleroderma, advanced COPD, ex-heavy smoker, and severe arthritis. The patient sustained a mechanical fall and she fractured her right hip. She is considered for surgery. Cardiac consultation is obtained. I visited with the patient and denied having any cardiac issue. She does have very bad lungs and she quit smoking 5 years ago. Her lungs are damaged big time. She is followed by Dr. Chidi Nixon in [place]. She take her inhalers and her other treatment. She is on very strict regimen for her pulmonary problems. There is no history of angina. Her activities are very limited because of her gait problem as well as advanced lung disease. There is no prior history of myocardial infarction or any other illness. REVIEW OF SYSTEMS: GENERAL: No fever. No chills. HEENT: Congestion. PULMONARY: Severe advanced lung disease with cough, phlegm, etc. CARDIAC: No prior cardiac issue. GI: No hematemesis. No melena. Occasional problems swallowing. : Increased frequency of urination. MUSCULOSKELETAL: Aches and pain in several joints. SKIN: Sclerodermatic changes. HEMATOLOGY: No easy bruising or bleeding. JOINT: Joint aches and pain. NEUROLOGICAL: No seizure activity. HOME MEDICATIONS: Trazodone, several inhalers, and other p.r.n. medication. ALLERGIES: NONE. PAST MEDICAL HISTORY: 1. COPD. 2. Ex-heavy smoker, stopped in 2014. 3. Scleroderma. 4. Arthritis. 5. Chronic bronchiectasis and pulmonary fibrosis. 6. Osteoporosis. 7. Left hip fracture and surgery 3 years ago. FAMILY HISTORY: Father at age 72, questionable cause of . Mother at age 72 of ovarian cancer. Seven siblings, one of pneumonia, three healthy sons. SOCIAL HISTORY: She is . She stopped smoking 5 years ago. She is not alcohol drinker. PHYSICAL EXAMINATION: GENERAL: Very skinny lady. VITAL SIGNS: Height of 5 feet 4 inches, weight of 110 pounds, blood pressure of 140/80, heart rate of 120, and temperature of 98.9 Fahrenheit. HEENT: Pupils are reactive. She seems to be dry. NECK: No elevation of jugular venous pulsation. No thyromegaly. CHEST: Decreased lung expansion and increased expiratory phase with crackles. HEART: Tachycardia is noted with increased intensity of 2nd heart sound. ABDOMEN: Soft with good bowel sounds. EXTREMITIES: No cyanosis. No clubbing. No edema. NEUROLOGIC: Awake, alert, oriented, nonfocal. LABORATORY DATA: Sodium of 135, potassium of 4.5, BUN of 15, creatinine of 0.8, and glucose of 105. White blood cell count of 11.9, hemoglobin 13.2, hematocrit 39%, and platelet count of 109,000. IMPRESSION AND PLAN: 1. Mechanical fall and right hip fracture. 2. Chronic obstructive pulmonary disease with advanced lung disease. 3. Scleroderma. 4. Osteoporosis. 5. Prior left hip surgery 3 years ago. From cardiac point of view, there is no active angina or any other symptoms, so the patient will be cleared for surgery, as she is higher risk because of advanced lung disease and her general condition. All this discussed and explained to the . Other alternative medical therapy will be carrying more problem and more complication. We will follow the patient's progression with you. I would like to see a chest x-ray and I would like to see an echocardiogram. We will follow the patient's progression with you. MD OUMAR Dinh/REGLA /[id number]
--- NOTE | 2019-04-25 19:00 | NUR ---
Bedside report and rounds completed. Patient in bed watching TV with call light within reach. No issues or concerns. Will continue to monitor closely.
[2019-04-25] MEDS: TRAZODONE HCL 50 MG TAB PO SCH (21:03)
--- NOTE | 2019-04-25 22:40 | NUR ---
ORTHOPEDIC CONSULTATION 68 year old female presents to the ED after a syncopal type fall with complaints of right hip pin with an inability to ambulate. Patient denies any prior hip pain. No present numbness, paresthesias or loss of distal motor function. PAST MEDICAL HISTORY: 1. COPD. 2. Ex-heavy smoker, stopped in 2014. 3. Scleroderma. 4. Arthritis. 5. Chronic bronchiectasis and pulmonary fibrosis. 6. Osteoporosis. 7. Left hip fracture and surgery 3 years ago. ALLERGIES: NONE. Meds: See reconciliation FAMILY HISTORY: Non-contribuory SOCIAL HISTORY: She is . She stopped smoking 5 years ago. Denies EtOH T 98 HR 107 RR 18 BP 139/74 O2 97% Right leg - No open lesions or sores Shortened, flexed and externally rotated Motor: + EHL, FHL, TA, G/S Sensation grossly intact Pulses + DP, Post tib Compartments soft Negative calf tenderness XRay demonstrate displaced right intertrochanteric hip fracture 68 yo Female with right intertrochanteric hip fracture Plan for Right hip IMN tomorrow Analgesics PRN DVT prophylaxis PT WBAT NPO except meds after midnight IVF while NPO Hold anticoagulation after midnight. Kathie Perla, [facility]
[2019-04-26] VITALS (8 sets, daily range): BP systolic 106–136; BP diastolic 51–76
[2019-04-26] MEDS: ONDANSETRON HCL INJ 2MG/ML 2ML 2 MG/ML VIAL IV PRN ×2 (02:21→06:33)
[2019-04-26] MEDS: MORPHINE SULFATE INJ 4 MG/ML INJ 1ML IV PRN ×4 (02:22→15:15)
[2019-04-26 06:20] LABS: BASOPHILS % 0.5 % (0.0-1.0); EOSINOPHILS % 0.1 % (0.0-6.0); HEMATOCRIT 28.8 % (34.2-44.1); HEMOGLOBIN 9.8 g/dL (12.0-16.0); LYMPHOCYTES # (AUTO) 0.9 (1.0-3.2); LYMPHOCYTES % 11.3 % (18.0-39.1); MEAN CORPUSCULAR HEMOGLOBIN 30.7 pg (28-32); MEAN CORPUSCULAR VOLUME 90.3 fL (81-99); MONOCYTES # (AUTO) 0.9 (0.2-0.8); MONOCYTES % 11.5 % (4.4-11.3); NEUTROPHILS # (AUTO) 6.2 (2.1-6.9); NEUTROPHILS % 76.1 % (38.7-80.0); PLATELET COUNT 116 x10e3/uL (140-360); RED BLOOD COUNT 3.19 x10e6/uL (3.6-5.1); RED CELL DISTRIBUTION WIDTH 12.8 % (11.7-14.4)
[2019-04-26 06:47] LABS: ANION GAP 13.9 mmol/L (8-16); BLOOD UREA NITROGEN 9 mg/dL (7-26); BUN/CREATININE RATIO 14 (6-25); CALCIUM 8.3 mg/dL (8.4-10.2); CARBON DIOXIDE 20 mmol/L (22-29); CHLORIDE 104 mmol/L (98-107); CREATININE, SERUM 0.66 mg/dL (0.57-1.11); EST GLOMERULAR FILTRATION RATE > 60 ML/MIN (60-); GLUCOSE 102 mg/dL (74-118); POTASSIUM 3.9 mmol/L (3.5-5.1); SODIUM 134 mmol/L (136-145)
--- NOTE | 2019-04-26 07:00 | NUR ---
Bedside report and rounds completed with oncoming nurse. Patient in bed resting, no issues or concerns. Call light within reach.
[2019-04-26 07:27] LABS: INR 1.01; PROTHROMBIN TIME 13.9 seconds (11.9-14.5)
[2019-04-26 07:28] LABS: PARTIAL THROMBOPLASTIN TIME 38.1 seconds (23.8-35.5)
--- NOTE | 2019-04-26 11:00 | NUR ---
Paged Dr. Perla to let him know about drop in hgb from 13.2 to 9.8. Waiting for call back. Dr. Celsi is here to see pt and made him aware and received orders to redraw H/H.
[2019-04-26 12:24] LABS: HEMATOCRIT 29.8 % (34.2-44.1); HEMOGLOBIN 9.7 g/dL (12.0-16.0)
[2019-04-26] MEDS: SODIUM CHLORIDE 0.9% 1000ML 1,000 ML IV SCH ×2 (12:31→21:02)
--- NOTE | 2019-04-26 13:39 | NUR ---
Notified Dr. Celis of repeat H/H results, no new orders received.
--- NOTE | 2019-04-26 14:40 | NUR ---
Nutrition Intervention Note RD Recommendation(s) for Physician: - When feasible, recommend ADAT to Regular diet - Consider an appetite stimulant such as Megace or Marinol if medically appropriate 2/2 chronically poor appetite and significant wt loss - Recommend MVI with minerals once daily for adequacy Pt meets criteria for severe protein calorie malnutrition Plan of Care: RD following, monitoring for tolerance and adequacy Nutrition reason for involvement: Nutrition Risk Trigger RD Assessment 04/25: 68 YOF admitted for R hip fx, seen today per MST screen. Pt reports decreased appetite "for years" and currently eats 1 large meal per day at noon. Pt with decreased po intake since admit, currently NPO for IMN today. Pt reports she does not drink any supplements at home and states "even though I'm supposed to, I just don't have any appetite." Pt declined all supplements offered when diet is resumed. Pt reports 14# wt loss in the past 3 months, significant wt loss noted. Pt denies any GI distress or difficulties chewing or swallowing. Pt with no questions or concerns at time of visit. Will continue to monitor. Principal Problems/Diagnoses: s/p fall with R hip fx PMH: COPD, scleroderma, chronic bronchiectasis, osteoporosis, hip fx with surgery 3 yrs ago GI: WDL, no GI distress reported Skin: intact Labs: 04/26: Na 134, K 3.9, BUN 9, Cr 0.66, Gluc 102 Meds: morphine, zofran Ht: 63 in Wt: 100.19 lb BMI: 17.7 kg/m2 IBW: 115 lb Malnutrition Evaluation (04/26/19) The patient meets criteria for MODERATE protein-calorie malnutrition. Energy intake: ~50% of estimated energy requirements for >3 months Weight loss: >7.5% in 3 months (Acute) Fat loss: none Muscle loss: Mild, interosseus depression Supporting Evidence: Fluid accumulation: none Functional Status: not assessed Nutrition Prescription (Diet Order): NPO Estimated Nutritional Needs: 8161-9788 calories/day (30-35 kcal/kg CBW) 68-91 g protein/day (1.5-2 g pro/kg CBW) Diet Adequacy: Meeting fluid needs, Not meeting calorie needs, Not meeting protein needs Diet Tolerance: previously tolerating Diet Education Needs Assessment: Diet education not indicated, patient on temporary/transition diet. Nutrition Care Level: mod Nutrition Diagnosis: Inadequate energy and protein intake related to current medical conditions as evidenced by progressive wt loss and not meeting needs. Goal: Patient will meet 75-100% of estimated needs by follow up Progress: N/A Interventions: -General healthful diet, Prescription medications, Multivitamin/mineral supplement therapy, Collaboration with other providers Monitoring/Evaluation: -Total energy intake, Total protein intake, Prescription medication, Weight change Signed: Magda Thurman RD, KASANDRA, CNSC
--- NOTE | 2019-04-26 15:00 | NUR ---
Call was returned from Dr. Perla and received no new orders for hgb of 9.8.
--- NOTE | 2019-04-26 16:04 | NUR ---
Pt being taken to OR at this time for procedure with Dr. Perla. 0 s/s of acute distress noted at time of transfer. Family at the bedside.
[2019-04-26] MEDS ORDERED: BACITRACIN 50,000 UNIT VIAL ONE (16:23)
[2019-04-26] MEDS ORDERED: BUPIVACAINE HCL 0.5% INJ 30 ML VIAL INJ ONE (16:23)
[2019-04-26] MEDS ORDERED: PROPOFOL IV EMULSION 10 MG/ML 20 ML VIAL ONE (18:20)
[2019-04-26] MEDS ORDERED: DEXAMETHASONE SOD PHOS INJ 4 MG/ML VIAL ONE (18:20)
[2019-04-26] MEDS ORDERED: GLYCOPYRROLATE INJ 0.2 MG/ML VIAL ONE (18:20)
[2019-04-26] MEDS ORDERED: SEVOFLURANE INHAL SOLN 250 ML PEN BTL ONE (18:20)
[2019-04-26] MEDS ORDERED: ONDANSETRON HCL INJ 2MG/ML 2ML 2 MG/ML VIAL ONE (18:20)
[2019-04-26] MEDS ORDERED: ROCURONIUM BROMIDE 10 MG/ML 5ML VIAL ONE (18:20)
[2019-04-26] MEDS ORDERED: CEFAZOLIN SOD 1 GM VIAL ONE (18:20)
[2019-04-26] MEDS ORDERED: NEOSTIGMINE 1 MG/ML 10ML VIAL ONE (18:20)
[2019-04-26] MEDS ORDERED: FENTANYL CITRATE/PF 100MCG/2 ML INJ ONE (18:30)
--- NOTE | 2019-04-26 18:48 | NUR ---
OPERATIVE NOTE - ORTHOPEDICS PREOPERATIVE DIAGNOSIS: Right Hip Intertrochanteric hip fracture. POSTOPERATIVE DIAGNOSIS: Right Hip Intertrochanteric hip fracture. OPERATION PERFORMED: Right Hip Intramedullary Nailing with Flouroscopic Interpretation ESTIMATED BLOOD LOSS: Approximately 100 cc. DRAINS: None. ANESTHESIA GIVEN: General COMPLICATIONS: None. IMPLANTS: Kuldip Gamma 3 system Trochanteric Nail Kit 11 x 180 mm x 125 degree, 10.5 x 90 mm Lag Screw, 5 x 32.5 mm Locking Fully Threaded Screw INDICATIONS FOR PROCEDURE: The patient is a 68-year-old male/female, who sustained a Right intertrochanteric hip fracture after a fall. She was admitted for a preoperative medical clearance and to be taken to the operating room for an intramedullary nailing of Right hip fracture. Consent is signed on the chart. All risks and benefits regarding the procedure were explained: Risks of , infection, nerve or blood vessel injury or bleeding, need for blood transfusion, blood clots, failure to heal, need for further surgery were all explained and consent was signed. DESCRIPTION OF OPERATIVE PROCEDURE: The patient was given Ancef 2 gram intravenously in the holding area. She with then taken to the operating room where general anesthetic was placed by the anesthesia service on the hospital bed. She was then transferred over to the fracture table in the supine position where a well-padded post was positioned. The left lower extremity with a SCD was placed into the thigh/leg support with foam padding over all bony prominences. The Right/Left lower extremity had abundant padding placed around the foot and ankle region and was then placed in the foot and ankle support. Next, the Right hip was visualized under AP and lateral fluoroscopic views. The femoral head and neck were well-visualized in both planes at this time. Next, the Right hip was prepped and draped in the usual sterile fashion utilizing Alcohol then Chloroprep followed by toweling out, followed by drying, followed by placement of a shower curtain. Next, a guidepin was placed over the hip and an AP fluoroscopic view taken to demarcate the height of the greater trochanter and a lateral to demarcate the direction of the femoral shaft. Next, the proposed skin incision of approximately 6 cm in length was marked on the skin. The skin incision was then made with a #10 blade, going down through the skin and subcutaneous tissue. The IT-band and hip abductors were split to the greater trochanter. A guide pin was inserted in adequate position which was confirmed on AP and lateral imaging. An opening reamer was placed over the guide wire and pushed down to the lesser trochanter. The above mentioned nail was introduced into the canal. Next a guide wire was placed in preparation for the lag screw. The wire was visualized in proper AP and Lateral position. The guidewire was measured and the neck and head were reamed over the guidewire. The above mentioned lag Screw was placed in adequate position. The set screw was then placed. The distal screw was then focused on. Through the jig, the distal screw was drilled and the above mentioned screw was introduced to lock the screw distally. The guides were then removed, final imaging was obtained demonstrating the hardware in adequate position. The incisions were closed deep with vicryl and monocryl on the skin. The incisions were cleaned and dressed with Aquacel. The patient was then gently transferred back to the hospital bed and transferred to recovery without difficulty. DO INOCENCIA [facility]
[2019-04-26] MEDS ORDERED: HYDROCODONE/APAP 7.5MG-325MG 1 EA TAB PO PRN (19:00)
[2019-04-26] MEDS ORDERED: ONDANSETRON HCL INJ 2MG/ML 2ML 2 MG/ML VIAL IV PRN (19:00)
[2019-04-26] MEDS ORDERED: HYDROCODONE/APAP 5MG-325MG TAB PO PRN (19:00)
[2019-04-26] MEDS ORDERED: HYDROMORPHONE 1MG/1ML INJ ONE (19:03)
--- NOTE | 2019-04-26 19:30 | NUR ---
Received patient from PACU: Patient A&Ox3, pain 2/10, dressing to Right hip CDI. Call light within reach. Bed locked and in lowest position. Will continue to monitor closely.
--- NOTE | 2019-04-26 19:58 | NUR ---
PACU called stated Patient to have stat CBC, lab to come to draw.
[2019-04-26 20:26] LABS: BASOPHILS # (AUTO) 0.1 (0.0-0.1); BASOPHILS % 0.4 % (0.0-1.0); HEMATOCRIT 32.4 % (34.2-44.1); HEMOGLOBIN 10.4 g/dL (12.0-16.0); LYMPHOCYTES # (AUTO) 1.2 (1.0-3.2); LYMPHOCYTES % 4.3 % (18.0-39.1); MEAN CORPUSCULAR HEMOGLOBIN 30.3 pg (28-32); MEAN CORPUSCULAR HGB CONC 32.1 g/dL (31-35); MEAN CORPUSCULAR VOLUME 94.5 fL (81-99); MONOCYTES # (AUTO) 1.4 (0.2-0.8); MONOCYTES % 4.9 % (4.4-11.3); NEUTROPHILS # (AUTO) 24.5 (2.1-6.9); NEUTROPHILS % 89.1 % (38.7-80.0); PLATELET COUNT 181 x10e3/uL (140-360); RED BLOOD COUNT 3.43 x10e6/uL (3.6-5.1); RED CELL DISTRIBUTION WIDTH 12.8 % (11.7-14.4)
--- NOTE | 2019-04-26 20:48 | NUR ---
Notified Dr Green of Patient elevated HR ST 128 to 130's, pain 04/25, SP IM nail, WBC 27.55 this evening was 04/26/19 0600 8.11, patient received decadron 4 in OR. New order for Metoprolol tart 25 mg po Q 6 hrs PRN HR greater than 120.
--- NOTE | 2019-04-26 20:51 | NUR ---
Left message for Dr Perla regarding elevated WBC 27.55, awaiting call back.
--- NOTE | 2019-04-26 20:54 | NUR ---
Page Dr Cody Celis regarding elevated WBC, awaiting call back.
[2019-04-26] MEDS ORDERED: METOPROLOL TARTRATE 25 MG TAB PO PRN (21:00)
[2019-04-26] MEDS: CEFAZOLIN SOD 1 GM/NS 50ML 50 ML IV SCH (21:02)
--- NOTE | 2019-04-26 21:45 | NUR ---
Dr Perla returned call, reported elevated wbc 27.55 and MD requested H/H and reported 10.4/32.4. No further orders.
[2019-04-26] MEDS: TRAZODONE HCL 50 MG TAB PO SCH (21:55)
--- NOTE | 2019-04-26 22:00 | NUR ---
Heart rate 108 after PRN metoprolol, Will continue to monitor closely.
--- NOTE | 2019-04-26 23:00 | NUR ---
Called to room by patient. Patient stating " I need help taking my pills" Asked patient what pills she was referring to? Stated ones that were dropped on floor, she stated she heard them drop. Informed patient that Resp therapy had just came in and dropped of Incentive spirometer. Educated patient on how to use and observed patient. Patient having difficulty following commands. Patient reported feeling funny and " zonked out" from pain medication and does not want to take norco again. Informed patient that had morphine available as alternative and can speak with MD regarding another pain medication to take orally in AM. Instructed to use call light if having pain. Bed alarm active, side rails up x3, bed locked and in lowest position. Will continue to monitor closely.
[2019-04-27] VITALS (8 sets, daily range): BP systolic 97–166; BP diastolic 49–86
[2019-04-27] MEDS: CEFAZOLIN SOD 1 GM/NS 50ML 50 ML IV SCH ×2 (05:00→11:37)
[2019-04-27 06:23] LABS: HEMATOCRIT 24.5 % (34.2-44.1); HEMOGLOBIN 8.1 g/dL (12.0-16.0)
--- NOTE | 2019-04-27 07:05 | NUR ---
Bedside report and rounds completed with oncoming nurse. Patient in bed with call light within reach. No issues or concerns noted.
[2019-04-27] MEDS: ENOXAPARIN SOD INJ 40 MG/0.4 ML SYR SC SCH (08:29)
[2019-04-27] MEDS: SODIUM CHLORIDE 0.9% 1000ML 1,000 ML IV SCH ×2 (08:29→19:41)
[2019-04-27] MEDS: ACETAMINOPHEN/CODEINE 300MG - 30MG TAB PO PRN ×2 (11:37→17:23)
--- NOTE | 2019-04-27 19:30 | NUR ---
Report given to oncoming nurse of patient's status. NO s/s of acute distress noted. Side rails upx2, call light within reach, bed alarm on.
--- NOTE | 2019-04-27 19:32 | NUR ---
Patient received sitting up in bed. AAO x 3. Patient had no complaints of pain. Respirations even and non-labored. Carrion catheter draining clear pale yellow urine. Dressing to right leg clean, dry and intact. Safety measures in place. Patient instructed to call for assistance when needed. Call light within reach.
--- NOTE | 2019-04-27 21:12 | NUR ---
ORTHOPEDIC PROGRESS NOTE Patient was seen & examined. Pain controlled with analgesics. [place] light headed during PT attempt VS 98.9 HR 85 RR 19 BP 132/55 O2 94% Right hip - dressing clean, dry and intact Motor: + EHL, FHL, TA, G/S Sensation grossly intact Pulses + DP, Post tib Compartments soft Negative calf tenderness H/H 8.1/24.5 68 yo F s/p Right Hip IMN POD#1 Analgesics DVT Prophylaxis PT - WBAT Follow up am labs DO INOCENCIA [facility]
[2019-04-27] MEDS: MORPHINE SULFATE INJ 4 MG/ML INJ 1ML IV PRN (22:08)
[2019-04-27] MEDS: TRAZODONE HCL 50 MG TAB PO SCH (23:00)
[2019-04-28] VITALS (8 sets, daily range): BP systolic 132–164; BP diastolic 59–88
[2019-04-28 05:34] LABS: HEMATOCRIT 20.2 % (34.2-44.1); HEMOGLOBIN 6.9 g/dL (12.0-16.0)
--- NOTE | 2019-04-28 05:54 | NUR ---
Patient's yanes catheter discontinued per MD's orders. Will continue to monitor urine output.
--- NOTE | 2019-04-28 06:07 | NUR ---
Dr. Nikolai Celis paged regarding critical lab values of Hgb 6.9 and HCT of 20.2. Awaiting call back.
[2019-04-28] MEDS: SODIUM CHLORIDE 0.9% 1000ML 1,000 ML IV SCH ×2 (06:14→23:00)
--- NOTE | 2019-04-28 07:00 | NUR ---
Walking rounds done. Shift report given to oncoming nurse.
--- NOTE | 2019-04-28 07:45 | NUR ---
PATIENT IN BED RESTING WITH EYES CLOSED, NO DISTRESS NOTED. DRESSING DRY AND INTACT TO RIGHT HIP. BED IN LOWER POSITION, CALL LIGHT AT REACH.
[2019-04-28] MEDS ORDERED: SODIUM CHLORIDE 0.9% 250ML 250 ML IV ONE (08:45)
[2019-04-28] MEDS: ENOXAPARIN SOD INJ 40 MG/0.4 ML SYR SC SCH (09:00)
[2019-04-28] MEDS: MORPHINE SULFATE INJ 4 MG/ML INJ 1ML IV PRN ×2 (09:15→21:06)
--- NOTE | 2019-04-28 10:30 | NUR ---
PATIENT VOIDED YELLOW URINE TO DIAPER.
--- NOTE | 2019-04-28 11:34 | NUR ---
PATIENT AMBULATED IN ROOM WITH PHYSICAL THERAPY, BACK TO BED WITH CALL LIGHT AT REACH.
[2019-04-28 13:52] LABS: FREE THYROXINE INDEX 2.7705 (1.4-3.8)
--- NOTE | 2019-04-28 15:10 | NUR ---
PATIENT ASSISTED WITH DIAPER CHANGE, REPOSITIONED IN BED. CALL LIGHT AT REACH.
--- NOTE | 2019-04-28 16:23 | NUR ---
Nutrition Reassessment Note RD Recommendation(s) for Physician: - Continue regular diet - Consider an appetite stimulant such as Megace or Marinol if medically appropriate due to chronically poor appetite and significant wt loss - Recommend MVI with minerals once daily for adequacy - Encourage nutrition supplements Pt meets criteria for severe protein calorie malnutrition Plan of Care: RD following, monitoring for tolerance and adequacy Nutrition reason for involvement: follow up RD Assessment 04/28: Follow up. Pt reports her appetite is getting better and is eating about 50% of meals. It is recorded that pt consumed 25-50% of meals yesterday and 50% of breakfast this morning. Pt was still not interested in any nutrition supplements. No N/V noted. Pt did not have any questions at time of visit. Will continue to monitor. 04/25: 68 YOF admitted for R hip fx, seen today per MST screen. Pt reports decreased appetite "for years" and currently eats 1 large meal per day at noon. Pt with decreased po intake since admit, currently NPO for IMN today. Pt reports she does not drink any supplements at home and states "even though I'm supposed to, I just don't have any appetite." Pt declined all supplements offered when diet is resumed. Pt reports 14# wt loss in the past 3 months, significant wt loss noted. Pt denies any GI distress or difficulties chewing or swallowing. Pt with no questions or concerns at time of visit. Will continue to monitor. Principal Problems/Diagnoses: s/p fall with R hip fx PMH: COPD, scleroderma, chronic bronchiectasis, osteoporosis, hip fx with surgery 3 yrs ago GI: soft, non-tender abdomen Skin: intact Labs: 04/26: Na 134, K 3.9, BUN 9, Cr 0.66, Gluc 102 Meds: morphine, NaCl, hydralazine, lovenox, zofran Ht: 63 in Wt: 100.19 lb BMI: 17.7 kg/m2 IBW: 115 lb Malnutrition Evaluation (04/26/19) The patient meets criteria for MODERATE protein-calorie malnutrition. Energy intake:~50% of estimated energy requirements for >3 months Weight loss:>7.5% in 3 months (Acute) Fat loss: none Muscle loss: Mild, interosseus depression Supporting Evidence: Fluid accumulation: none Functional Status: not assessed Nutrition Prescription (Diet Order): Regular Estimated Nutritional Needs: 9371-1572 calories/day (30-35 kcal/kg CBW) 68-91 g protein/day (1.5-2 g pro/kg CBW) Diet Adequacy: Not meeting calorie needs, Not meeting protein needs Diet Tolerance: tolerating PO Diet Education Needs Assessment: Diet education not indicated, patient on a regular diet Nutrition Care Level: moderate Nutrition Diagnosis: Inadequate energy and protein intake related to current medical conditions as evidenced by progressive wt loss and not meeting needs. Goal: Patient will meet 75-100% of estimated needs by follow up Progress: progressing Interventions: -General healthful diet, Prescription medications, Multivitamin/mineral supplement therapy Monitoring/Evaluation: -Total energy intake, Total protein intake, Weight change Signed: Ana Bedoya RD, LD
[2019-04-28] MEDS ORDERED: SODIUM CHLORIDE 0.9% 250ML 250 ML ONE (17:18)
--- NOTE | 2019-04-28 18:10 | NUR ---
BLOOD TRANSFUSION STARTED ORDERED. STAYED WITH PATIENT FOR THE FIRST 15 MINUTES, NO ADVERSE REACTION OBSERVED. WILL CONTINUE TO MONITOR.
--- NOTE | 2019-04-28 20:26 | NUR ---
Ist unit of PRBC completed. No adverse reaction noted.
[2019-04-28] MEDS: TRAZODONE HCL 50 MG TAB PO SCH (21:00)
--- NOTE | 2019-04-28 21:51 | NUR ---
ORTHOPEDIC PROGRESS NOTE Patient seen & examined resting comfortably at bedside. Pain improving. T 98.8 HR 114 RR 19 BP 155/75 O2 99% Right hip - dressing clean, dry and intact Motor: + EHL, FHL, TA, G/S Sensation intact to light touch Pulse + DP, Post tib Compartments soft Negative calf tenderness H/H 6.9/20.2 68 yo F s/p Right Hip IMN POD #2 Analgesics DVT Prophylaxis PT WBAT Foam tap discontinued. Transfuse as per medicine DO [facility]
[2019-04-28 22:08] LABS: THYROID STIMULATING HORMONE 0.52 uIU/mL (0.350-4.940)
[2019-04-28] MEDS: HYDRALAZINE HCL 20 MG/ML VIAL IV PRN (22:55)
--- NOTE | 2019-04-28 23:40 | NUR ---
Blood transfusion started. Will continue to monitor.
[2019-04-29] MEDS: SODIUM CHLORIDE 0.9% 1000ML 1,000 ML IV SCH (02:14)
--- NOTE | 2019-04-29 02:45 | NUR ---
Second unit of blood completed. No adverse reaction noted.
[2019-04-29 04:00] VITALS: BP 122/60
--- NOTE | 2019-04-29 07:00 | NUR ---
Walking rounds done. Patient resting comfortably. Shift report given to oncoming nurse.
[2019-04-29 07:35] VITALS: BP 122/61
--- NOTE | 2019-04-29 07:35 | NUR ---
PATIENT IN BED RESTING WITH EYES CLOSED, NO DISTRESS NOTED. DRESSING INTACT TO RIGHT HIP. BED IN LOWER POSITION AND LOCKED, CALL LIGHT AT REACH.
[2019-04-29 07:50] VITALS: BP 122/61
[2019-04-29 08:40] LABS: BASOPHILS % 0.5 % (0.0-1.0); EOSINOPHILS # (AUTO) 0.1 (0.0-0.4); EOSINOPHILS % 0.6 % (0.0-6.0); HEMATOCRIT 32.5 % (34.2-44.1); HEMOGLOBIN 11.1 g/dL (12.0-16.0); LYMPHOCYTES # (AUTO) 1.5 (1.0-3.2); LYMPHOCYTES % 18.2 % (18.0-39.1); MEAN CORPUSCULAR HEMOGLOBIN 29.5 pg (28-32); MEAN CORPUSCULAR HGB CONC 34.2 g/dL (31-35); MEAN CORPUSCULAR VOLUME 86.4 fL (81-99); MONOCYTES # (AUTO) 0.8 (0.2-0.8); MONOCYTES % 8.9 % (4.4-11.3); NEUTROPHILS % 70.8 % (38.7-80.0); PLATELET COUNT 155 x10e3/uL (140-360); RED BLOOD COUNT 3.76 x10e6/uL (3.6-5.1); RED CELL DISTRIBUTION WIDTH 13.8 % (11.7-14.4)
[2019-04-29 09:01] LABS: ANION GAP 8.1 mmol/L (8-16); BLOOD UREA NITROGEN 7 mg/dL (7-26); BUN/CREATININE RATIO 13 (6-25); CALCIUM 8.3 mg/dL (8.4-10.2); CARBON DIOXIDE 27 mmol/L (22-29); CHLORIDE 104 mmol/L (98-107); CREATININE, SERUM 0.54 mg/dL (0.57-1.11); EST GLOMERULAR FILTRATION RATE > 60 ML/MIN (60-); GLUCOSE 107 mg/dL (74-118); POTASSIUM 3.1 mmol/L (3.5-5.1); SODIUM 136 mmol/L (136-145)
[2019-04-29] MEDS: ENOXAPARIN SOD INJ 40 MG/0.4 ML SYR SC SCH (09:37)
[2019-04-29] MEDS ORDERED: LACTULOSE SYRUP 20 GM/30 ML UDC PO PRN (10:00)
[2019-04-29] MEDS: MORPHINE SULFATE INJ 4 MG/ML INJ 1ML IV PRN ×2 (10:20→19:48)
[2019-04-29 11:07] VITALS: BP 138/75
--- NOTE | 2019-04-29 11:09 | NUR ---
PATIENT C/O PAIN, MEDICATED ORDERED.
--- NOTE | 2019-04-29 11:51 | NUR ---
PT DISCUSSED IN MDR ROUNDS. PT RECOMMENDED SNF FOR PT. CALL TO DR FERNANDEZ FOR ORDERS. DR. JIM RAY W SNF EVAL.
--- NOTE | 2019-04-29 14:00 | NUR ---
PATIENT ASSISTED OUT BED TO CHAIR BY PHYSICAL THERAPY. CALL LIGHT AT REACH.
--- NOTE | 2019-04-29 14:49 | NUR ---
SIGNED CHOICE FOR [facility], FILED IN CHART. REP FROM FACILITY PICKED UP CLINICALS AND PASRR, COMPLETED RTF AND PUT WITH PACKET AT NURSES STATION TO BE COMPLETED UPON TRANSFER. PT WILL GO TO [facility]
[2019-04-29 15:46] VITALS: BP 160/84
--- NOTE | 2019-04-29 17:00 | NUR ---
PATIENT IS ABOUT TO BE TRANSFERRED TO SNF. REPORT CALLED AND GIVEN TO RECEIVING NURSE. AWAITING FOR AMBULANCE FOR TRANSPORTATION.
[2019-04-29] MEDS ORDERED: FUROSEMIDE INJ 10 MG/ML 4 ML VIAL IV NR (17:30)
[2019-04-29] MEDS: ACETAMINOPHEN/CODEINE 300MG - 30MG TAB PO PRN (17:35)
--- NOTE | 2019-04-29 19:30 | NUR ---
Patient received sitting up in bed. AAO x 3. Patient complained of pain to right leg (10/23). Will be given medication per eMAR. Respirations even and non-labored on 2L NC. Dressing to right leg CDI. Patient repositioned to a more comfortable position. Safety measures in place. Call light within reach.
[2019-04-29 21:08] VITALS: BP 136/86
--- NOTE | 2019-04-29 21:55 | NUR ---
Patient discharged to [facility] via stretcher by EMS. IV on left hand removed with tip intact. Telemetry leads removed. Patient in stable condition. Vital signs WNL.
== END 2019-04-29 21:45 | DRG 480 ==
LOC: ER 21:04 → ERHOLD 23:30 → MED/SURG3 04-25 00:05 → OBSVTOIN 04-25 13:58
PROC: 0QH606Z Insertion of Intramedullary Internal Fixation Device into Right Upper Femur, Open Approach (ICD-10-PCS; principal; 2019-04-26 17:00)
PROC: 30233N1 Transfusion of Nonautologous Red Blood Cells into Peripheral Vein, Percutaneous Approach (ICD-10-PCS; 2019-04-28)
DX: S72.141A Displaced intertrochanteric fracture of right femur, initial encounter for closed fracture (principal); E43 Unspecified severe protein-calorie malnutrition; N39.0 Urinary tract infection, site not specified; Z68.1 Body mass index [BMI] 19.9 or less, adult; J44.9 Chronic obstructive pulmonary disease, unspecified; G89.4 Chronic pain syndrome; F32.9 Major depressive disorder, single episode, unspecified; M34.9 Systemic sclerosis, unspecified; M81.0 Age-related osteoporosis without current pathological fracture; D50.0 Iron deficiency anemia secondary to blood loss (chronic); Z87.891 Personal history of nicotine dependence; M19.90 Unspecified osteoarthritis, unspecified site; Z80.41 Family history of malignant neoplasm of ovary
CPT/HCPCS: 36415; 71046; 80048; 80053; 82607; 82948; 83540; 84436; 84443; 84479; 85014; 85018; 85025; 85610; 85730; 86850; 86900; 86920; 87086; 87186; 93005; 93306; 97139; 99284; C1713; G0378; J0360; J0690; J1100; J1170; J1644; J1650; J2270; J2405; J2710; J3010; J7030; J7050; P9016

== ENCOUNTER 2019-12-28 14:17 | Emergency (ER) | payer MEDICARE, OTHER ==
[~2019-12-28] VITALS: Ht 160 cm; Wt 52.2 kg
[~2019-12-28 14:17] MED LIST changes: +ANORO ELLIPTA1 EACH IH
[2019-12-28] MEDS ORDERED: ALBUTEROL SULFATE HFA 8GM INHALATION AEROSOL INH ONE ×2 (14:45→15:02)
--- NOTE | 2019-12-28 14:56 | NUR ---
inhaler used with spacer per protocol
--- NOTE | 2019-12-28 15:41 | Diagnostic Imaging Report ---
Chest, 1 view, 12/28/2019. History: Shortness of breath. Comparison: 04/26/2019. Findings: The cardiomediastinal silhouette and pulmonary vasculature are within normal limits for a portable exam. There is no focal consolidation or pleural effusion. Bibasilar interstitial prominence is unchanged. There are no acute osseous or soft tissue abnormalities. Impression: No acute cardiopulmonary abnormality. Signed by: Cipriano Rahman on 12/28/2019 3:37 PM
[2019-12-28] MEDS ORDERED: CLONAZEPAM0.5 MG (15:51)
[2019-12-28] MEDS ORDERED: TRAZODONE HCL100 MG (15:51)
[2019-12-28] MEDS ORDERED: SODIUM CHLORIDE 0.9% 1000ML 500 ML IV SCH (16:00)
[2019-12-28] MEDS ORDERED: SODIUM CHLORIDE 0.9% 500ML 500 ML ONE (16:41)
--- OUTSIDE RECORDS SUMMARY | 2019-12-28 16:54 | XMS REPORT | Continuity of Care Document ---
Author Author [facility] [place] Organization [employer] [facility] [place] Address Unknown Phone Unavailable Care Team Providers Care Car Ferrier Name Role Phone [employer] Information [email or web address] Unavailable Un available Problems Problem Status Onset Date Classification Date Reported Comments Source MCTD (mixed connective tissue disease) Active Problem 12/2019 Reginaldo Benavidez Inflammatory arthritis Active Problem 06/24/2019 Reginaldo Benavidez Raynaud''s phenomenon without gangrene Active Problem 12/2019 Reginaldo Benavidez Long-term use of high-risk medication Active Diagnosis 09/21/2018 Reginaldo Benavidez Other insomnia Active Problem 06/24/2019 Reginaldo Benavidez ILD (interstitial lung disease) Active Problem 12/2019 Reginaldo Benavidez Osteoporosis Active Problem 06/24/2019 Reginaldo Benavidez Dysuria Active Diagnosis 05/07/2017 Reginaldo Benavidez Osteoporosis screening Active Diagnosis 05/07/2017 Reginaldo Benavidez Vitamin D deficiency Active Problem 06/24/2019 Reginaldo Benavidez Osteoporosis with current pathological f racture, unspecified osteoporosis type, sequela Active Problem 06/24/2019 Reginaldo Benavidez Medications Medication Details Route Status Patient Instructions Ordering Provider Order Date Source Mycophenolate Mofetil 3 Tablets Orally Active 500 MG Orally Twice a day Alex 03/22/2018 Reginaldo Benavidez Mycophenolate Mofetil 3 Tablet ss Orally Active 500 MG Orally Twice a day Alex 10/21/2017 Reginaldo Benavidez Prolia as directed Subcutaneous Active 60 MG/ML Subcutaneous Alex 09/14/2017 Reginaldo Benavidez Calcitonin ([place]) 1 puff Nasally Active 200 UNIT/ACT Nasally Once a day Alex 09/14/2017 Reginaldo Benavidez Mycophenolate Mofetil 3 tablets Orally Active 500 MG Orally Twice a day Alex 08/13/2017 Reginaldo Benavidez Vitamin D (Ergocalciferol) 1 c apsule Orally Active 72236 UNIT Orally once a week Benavidez 06/17/2017 Reginaldo Benavidez Fluconazole 1 tablet Orally Active 200 MG Orally Once a da y Alex 05/22/2017 Reginaldo Benavidez Hydroxychloroquine Sulfate 1 t ablet with food or milk Orally Active 200 MG Orally Once a day Yousa f 05/21/2017 Reginaldo Benavidez Alendronate Sodium 1 tablet Orally Active 70 MG Orally Once a week Perrin 05/06/2017 Reginaldo Benavidez Bactrim DS 1 tablet Orally Active 800-160 MG Orally Twice a day Perrin 05/05/2017 Reginadlo Benavidez PredniSONE 10mg x 4wks, 7.5mg x 4wks, 5mg daily Orally Active 5 MG Orally Once a day Alex 05/05/2017 Reginaldo Benavidez PredniSONE 5 tablets Orally Active 10 MG Orally [facility] a day [facility] 04/16/2017 Reginaldo Benavidez Lisinopril 1 tablet Orally Active 2.5 MG Orally Once a da y Alex 04/16/2017 Reginaldo Benavidez Bactrim DS 1 tablet Orally Active 800-160 MG Orally on Wednesdays and Fridays [facility] 04/16/2017 Reginaldo Benavidez Mycophenolate Mofetil 2 tablets Orally Active 500 MG Orally Twice a day Alex 04/15/2017 Reginaldo Benavidez Melatonin 1-3 tablets at bedti me as needed with food Orally Active 1 MG Orally Once a day OTC Fak oya 04/15/2017 Reginaldo Benavidez Hydroxychloroquine Sulfate 1 t ablet with food or milk Orally Active 200 MG Orally Once a day [facility] 03/13/2017 Reginaldo Benavidez Nucynta ER 1 tablet Orally Active 75 MG Orally every 12 h rs Aelx Reginaldo Benavidez Ventolin HFA 2 puffs as needed Inhalation Active 108 (90 Base) MCG/ACT Inhalation every 4 hrs Alex Reginaldo Benavidez Spiriva HandiHaler as directed Inhalation Active 18 MCG Inhalation Alex Reginaldo Benavidez Trazodone HCl 1 tablet at bedt sigrid Orally Active 100 MG Orally Once a day Alex Reginaldo Benavidez Albuterol Sulfate 1 puff as ne eded Inhalation Active 108 (90 Base) MCG/ACT Inhalation every 4 hrs Alex Reginaldo Benavidez Allergies, Adverse Reactions, Alerts Substance Category Reaction Severity Reaction type Status Date Reported Comments Source Celebrex Adverse Reaction Heartburn Adverse Reaction Active 04/08/2018 Reginaldo Benavidez Immunizations No Data Provided for This Section Results No Data Provided for This Section Pathology Reports No Data Provided for This Section Diagnostic Reports No Data Provided for This Section Consultation Notes No Data Provided for This Section Discharge Summaries No Data Provided for This Section History and Physicals No Data Provided for This Section Vital Signs Vital Sign Value Date Comments Source Weight 108.6 04/08/2018 Reginaldo Benavidez Height 63 0 04/08/2018 Reginaldo Benavidez Temperature Oral (F) 97.8 F 04/08/2018 Reginaldo Benavidez Heart Rate 98 04/08/2018 Reginaldo Benavidez Diastolic (mm Hg) 72 04/08/2018 Reginaldo Benavidez Systolic (mm Hg) 97 04/08/2018 Reginaldo Benavidez Weight 110 09/14/2017 Reginaldo Benavidez Height 62 0 09/14/2017 Reginaldo Benavidez Temperature Oral (F) 97.1 F 09/14/2017 Reginaldo Benavidez Heart Rate 84 09/14/2017 Reginaldo Benavidez Diastolic (mm Hg) 70 09/14/2017 Reginaldo Benavidez Systolic (mm Hg) 124 09/14/2017 Reginaldo Benavidez Weight 109 06/16/2017 Reginaldo Benavidez Height 63 0 06/16/2017 Reginaldo Benavidez Temperature Oral (F) 98.3 F 06/16/2017 Reginaldo Benavidez Heart Rate 86 06/16/2017 Reginaldo Benavidez Diastolic (mm Hg) 64 06/16/2017 Reginaldo Benavidez Systolic (mm Hg) 110 06/16/2017 Reginaldo Benavidez Weight 105 05/05/2017 Reginaldo Benavidez Height 63 0 05/05/2017 Reginaldo Benavidez Temperature Oral (F) 97.7 F 05/05/2017 Reginaldo Benavidez Heart Rate 88 05/05/2017 Reginaldo Benavidez Diastolic (mm Hg) 78 05/05/2017 Reginaldo Benavidez Systolic (mm Hg) 108 05/05/2017 Reginaldo Benavidez Weight 106 04/15/2017 Reginaldo Benavidez Height 63 0 04/15/2017 Reginaldo Benavidez Temperature Oral (F) 98.6 F 04/15/2017 Reginaldo Benavidez Heart Rate 104 04/15/2017 Reginaldo Benavidez Diastolic (mm Hg) 86 04/15/2017 Reginaldo Benavidez Systolic (mm Hg) 142 04/15/2017 Reginaldo Benavidez Weight 106 04/02/2017 Reginaldo Benavidez Height 63 0 04/02/2017 Reginaldo Benavidez Temperature Oral (F) 97.5 F 04/02/2017 Reginaldo Benavidez Heart Rate 100 04/02/2017 Reginaldo Benavidez Diastolic (mm Hg) 88 04/02/2017 Reginaldo Benavidez Systolic (mm Hg) 126 04/02/2017 Reginaldo Reema Encounters No Data Provided for This Section Procedures No Data Provided for This Section Assessment and Plan No Data Provided for This Section Plan of Care No Data Provided for This Section Social History No Data Provided for This Section Family History No Data Provided for This Section Advance Directives No Data Provided for This Section Functional Status No Data Provided for This Section
--- OUTSIDE RECORDS SUMMARY | 2019-12-28 16:55 | XMS REPORT | Continuity of Care Document ---
Author Author [facility] Organization [facility] Address [address] [place] [phone] Phone Unavailable Care Team Providers Care Pollution Control Chemist Name Role Phone SEVERINO OMER M.D. PCP Levy CAMPBELL Attphys Unavailable FERNANDEZ, SOUHEIL Attphys Unavailable LOAN LAND Attphys Unavailable ANDREA DOW Attphys Unavailable FERNANDEZ, SOUHEIL Admphys Unavailable ANDREA DOW Admphys Unavailable Payers Payer Name Policy Type Policy Number Effective Date Expiration Date S ource Medicare A & B [id number] 2012 00:00:00 [facility] Ppo [id number] [facility] Problems Condition Name Condition Details Condition Category Status Onset Date Resolution Date Last Treatment Date Treating Clinician Comments Source Chronic obstructive pulmonary disease COPD (chronic ob structive pulmonary disease) Problem Active [facility] Pneumonia Pneumonia Problem Active [facility] MCTD (mixed connective tissue disease) MCTD (mixed connective tissue disease) Active Problem 06/24/2019 Reginaldo Benavidez Problem Active 2019-06-24 03:00:26 Amada Will Inflammatory arthritis Infl ammatory arthritis Active Problem 06/24/2019 Reginaldo Benavidez Problem Active 2019-06-24 03 :00:26 Karen Will Raynaud''s phenomenon without gangrene Raynaud''s phenomenon without gangrene Active Problem 06/24/2019 Reginaldo Benavidez Problem Active 2019-06-24 03:00:26 Amada Will Long-term use of high-risk medication Long-term use of high-risk medication Active Diagnosis 09/21/2018 Reginaldo Benavidez Diagnosis Active 2018-09-21 02:45:18 Karen Will Other insomnia Othe r insomnia Active Problem 06/24/2019 Reginaldo Benavidez Problem Active 2019-06-24 03:00:26 Karen Will ILD (interstitial lung disease) ILD (interstitial lung disease) Active Problem 06/24/2019 Reginaldo Benavidez Problem Active 2019-06-24 03:00:26 Karen Will Osteoporosis Oste oporosis Active Problem 06/24/2019 Reginaldo Benavidez Problem Active 2019-06-24 03:00:26 Karen Will Dysuria Dysu arik Active Diagnosis 05/07/2017 Reginaldo Benavidez Diagnosis Active 2017-05-07 03:48:15 [facility]osis screening Oste oporosis screening Active Diagnosis 05/07/2017 Reginaldo Benavidez Diagnosis Active 2017-05-07 03:48:15 Karen Will Vitamin D deficiency Jodi min D deficiency Active Problem 06/24/2019 Reginaldo Benavidez Problem Active 2019-06-24 03:00:26 Karen Will Osteoporosis with current pathological f racture, unspecified osteoporosis type, sequela Osteoporosis wit h current pathological fracture, unspecified osteoporosis type, sequela Active Problem 06/24/2019 Reginaldo Benavidez Problem Active 2019-06-24 03:00:26 Karen Will Allergies, Adverse Reactions, Alerts Allergy Name Allergy Type Status Severity Reaction(s) Onset Date Inacti ve Date Treating Clinician Comments Source No Known Allergies DA Active U 2018-05-19 00:00:00 [facility] Celebrex Celebrex Active Heartburn 2018-04-08 00:00:00 Karen Will No Known Allergies DA Active U 2017-01-28 00:00:00 [facility] Medications Ordered Medication Name Filled Medication Name Start Date Stop Da te Current Medication? Ordering Clinician Indication Dosage Frequency Signature (SIG) Comments Components Source Ventolin HFA 2018-04-15 03:48:04 Yes Bruce Rodriguezf 2 puffs as needed Karen Will Spiriva HandiHaler 2018-04-15 03:48:04 Yes Bruce Mercersaf as directed Karen Will Trazodone HCl 2018-04-15 03:48:04 Yes Bruce Mercersaf 1 tablet at bedtime [facility] Albuterol Sulfate 2018-04-15 03:48:04 Yes Wajeeha Alex 1 puff as needed [facility] Mycophenolate Mofetil 2018-03-22 00:00:00 Yes Wajeeha Yo usaf 3 Tablets [facility] Mycophenolate Mofetil 2017-10-21 00:00:00 Yes Wajeeha Yo usaf 3 Tabletss [facility] Prolia 2017-09-14 00:00:00 Yes Wajeeha Alex as directed [facility] Calcitonin ([place]) 2017-09-14 00:00:00 Yes Wajeeha Alex 1 puff [facility] Mycophenolate Mofetil 2017-08-13 00:00:00 Yes Wajeeha Yo usaf 3 tablets [facility] Azithromycin (Z-Brando) 250 Mg Tablet, 1 Pkt Oral Azithro mycin (Z-Brando) 250 Mg Tablet, 1 Pkt Oral 2017-06-21 00:00:00 2017-08-25 00:00:00 No Arnav Mustafa Md 1 .as Directed [facility] D-Methorphan Hb/P-Epd Hcl/Bpm (Bromfed D m Cough Syrup) 118 Ml Syrup, 5-10 Ml Oral D-Methorphan Hb/P-Epd Hcl/Bpm (Bromfed D m Cough Syrup) 118 Ml Syrup, 5-10 Ml Oral 2017-06-21 00:00:00 2017-08-25 00:00:00 No Benjamin Mustafa Md Every 4 Hours as needed for Cough [facility] Nucynta ER 2017-06-18 02:48:19 Yes Wajeeha Alex 1 tablet [facility] Vitamin D (Ergocalciferol) 2017-06-17 00:00:00 Yes Hank Benavidez 1 capsule [facility] Fluconazole 2017-05-22 00:00:00 Yes Wajeeha Alex 1 tablet [facility] Hydroxychloroquine Sulfate 2017-05-21 00:00:00 Yes Jatinder Mercersaf 1 tablet with food or milk [facility] n Alendronate Sodium 2017-05-06 00:00:00 Yes Felix Benavidez 1 tablet [facility] Bactrim DS 2017-05-05 00:00:00 Yes Felix Francoer 1 tablet [facility] PredniSONE 2017-05-05 00:00:00 Yes Wajeeha Alex 10mg x 4wks, 7.5mg x 4wks, 5mg daily [facility] PredniSONE 2017-04-16 00:00:00 Yes Latifa Fakoya 5 tablets [facility] Lisinopril 2017-04-16 00:00:00 Yes Wajeeha Alex 1 tablet [facility] Bactrim DS 2017-04-16 00:00:00 Yes Latifa Fakoya 1 tablet [facility] Mycophenolate Mofetil 2017-04-15 00:00:00 Yes Wajeeha Yo usaf 2 tablets [facility] Melatonin 2017-04-15 00:00:00 Yes Latifa Fakoya 1-3 tablets at bedtime as needed with food [facility] Hydroxychloroquine Sulfate 2017-03-13 00:00:00 Yes Faustina a Fakoya 1 tablet with food or milk [facility] n Albuterol Sulfate (Ventolin Hfa) 18 Gm Hfa.aer.ad Albu terol Sulfate (Ventolin Hfa) 18 Gm Hfa.aer.ad Yes 2 Ev terence 4 Hours as needed for Shortness Of Breath [facility] Tapentadol Hcl (Nucynta) 75 Mg Tablet Tapentadol Hcl (Nucynta) 75 M g Tablet Yes 1 Every 8 Hours as needed for Moderate Abrahan n (4-6) [facility] Trazodone Hcl 50 Mg Tablet Trazodone Hcl 50 Mg Tablet Yes 150 Bedtime [facility] Umeclidinium Brm/Vilanterol Tr (Anoro El lipta 62.5-25 Mcg Inh) 1 Each Blst.w.dev Umeclidinium Brm/Vilanterol Tr (Anoro El lipta 62.5-25 Mcg Inh) 1 Each Blst.w.dev Yes 1 Daily [facility] Amoxicillin/Potassium Clav (Augmentin 50 0-125 Tablet) 1 Each Tablet, 500 Mg Oral Amoxicillin/Potassium Clav (Augmentin 50 0-125 Tablet) 1 Each Tablet, 500 Mg Oral 2019-04-25 00:00:00 No 500 Three Times A Day [facility] Hydrocodone Bit/Acetaminophen ([place] 5-325 Tablet) 1 E ach Tablet, 1 Each Oral Hydrocodone Bit/Acetaminophen ([place] 5-325 Tablet) 1 Each Tablet, 1 Each Oral 2019-04-25 00:00:00 No 1 Every 4 Hours as nee ded for Pain [facility] Hydroxychloroquine Sulfate (Plaquenil) 200 Mg Tab, 200 Mg Oral Hydroxychloroquine Sulfate (Plaquenil) 200 Mg Tab, 200 Mg Oral 2019-04-25 00:00:00 No 200 Daily [facility] Mycophenolate Mofetil (Cellcept) 500 Mg Tablet, 1000 M g Oral Mycophenolate Mofetil (Cellcept) 500 Mg Tablet, 1000 Mg Oral 2019-04-25 00:00:00 No 1000 Twice A Day [facility] Tiotropium [place] (Spiriva) 18 Mcg Cap.w.dev, 18 Mcg Inhalation Tiotropium [place] (Spiriva) 18 Mcg Cap.w.dev, 18 Mcg Inhalation 2019-04-25 00:00:00 No 18 Daily [facility] Lisinopril 10 Mg Tablet, 10 Mg Oral Lisinopril 10 Mg Tablet, 10 Mg Oral 2017-08-25 00:00:00 No 10 Daily [facility] Mycophenolate Mofetil (Cellcept) 200 Mg/1 Ml Susp.ezio n, Mycophenolate Mofetil (Cellcept) 200 Mg/1 Ml Susp.recon, 2017-08-25 00:00:00 No [facility] Prednisone 10 Mg Tab, 10 Mg Oral Prednisone 10 Mg Tab, 10 Mg Ora l 2017-08-25 00:00:00 No 10 [facility] Rosuvastatin Calcium (Crestor) 10 Mg Tab, Rosuvastatin Calcium (Crestor) 10 Mg Tab, 2017-08-25 00:00:00 No [facility] Tapentadol Hcl (Nucynta) 75 Mg Tablet, 75 Mg Oral Tape ntadol Hcl (Nucynta) 75 Mg Tablet, 75 Mg Oral 2017-08-25 00:00:00 No 75 Three Times A Day as needed for Pain [facility] Vital Signs Vital Name Observation Time Observation Value Comments Source Weight 2018-04-08 17:00:00 [facility] Height 2018-04-08 17:00:00 [facility] Temperature Oral (F) 2018-04-08 17:00:00 97.8 F [facility] Heart Rate 2018-04-08 17:00:00 [facility] Diastolic (mm Hg) 2018-04-08 17:00:00 Mem orial [facility] Systolic (mm Hg) 2018-04-08 17:00:00 Noman arikl Diller Weight 2017-09-14 19:00:00 [facility] Height 2017-09-14 19:00:00 [facility] Temperature Oral (F) 2017-09-14 19:00:00 97.1 F [facility] Heart Rate 2017-09-14 19:00:00 [facility] Diastolic (mm Hg) 2017-09-14 19:00:00 Mem orial [facility] Systolic (mm Hg) 2017-09-14 19:00:00 Noman rial Diller Weight 2017-06-16 18:15:00 [facility] Height 2017-06-16 18:15:00 [facility] Temperature Oral (F) 2017-06-16 18:15:00 98.3 F [facility] Heart Rate 2017-06-16 18:15:00 [facility] Diastolic (mm Hg) 2017-06-16 18:15:00 Mem orial Diller Systolic (mm Hg) 2017-06-16 18:15:00 Noman [facility] Weight 2017-05-05 19:00:00 [facility] Height 2017-05-05 19:00:00 [facility] Temperature Oral (F) 2017-05-05 19:00:00 97.7 F [facility] Heart Rate 2017-05-05 19:00:00 [facility] Diastolic (mm Hg) 2017-05-05 19:00:00 [facility] Systolic (mm Hg) 2017-05-05 19:00:00 Noman [facility] Weight 2017-04-15 19:30:00 [facility] Height 2017-04-15 19:30:00 [facility] Temperature Oral (F) 2017-04-15 19:30:00 98.6 F [facility] Heart Rate 2017-04-15 19:30:00 [facility] Diastolic (mm Hg) 2017-04-15 19:30:00 [facility] Systolic (mm Hg) 2017-04-15 19:30:00 Noman rial Diller Weight 2017-04-02 19:00:00 [facility] Height 2017-04-02 19:00:00 [facility] Temperature Oral (F) 2017-04-02 19:00:00 97.5 F [facility] Heart Rate 2017-04-02 19:00:00 [facility] Diastolic (mm Hg) 2017-04-02 19:00:00 [facility] Systolic (mm Hg) 2017-04-02 19:00:00 Noman [facility] Procedures Procedure Date / Time Performed Performing Clinician [facility] e X-ray of chest, two views 2019-04-25 00:00:00 JANETH FERNANDEZ CH [facility] X-ray of chest, two views 2019-04-24 00:00:00 CIPRIANO QUAN [facility] Encounters Start Date/Time End Date/Time Encounter Type Admission Type Attendi [facility] Care Department Encounter ID Source 2019-04-25 13:58:00 2019-04-29 21:45:00 Discharged Inpatient 1 JANETH FERNANDEZ [facility] [id number] [facility] 2019-04-24 15:02:00 2019-04-24 20:48:00 Departed Emergency Room 1 LOAN LAND [facility] [id number] [facility] 2019-01-13 16:28:00 2019-01-13 16:28:00 Outpatient MD ROMI Elias MD [place] [id number] ROBBIE Benavidez MD 2019-01-06 08:49:00 2019-01-06 08:49:00 Outpatient MD ROMI Elias MD [place] [id number] ROBBIE Benavidez MD 2018-12-21 13:34:00 2018-12-21 13:34:00 Outpatient MD ROMI Elias MD [place] [id number] Reginaldo Benavidez MD 2018-09-17 08:26:00 2018-09-17 08:26:00 Outpatient Felix Benavidez MD [place] [id number] Reginaldo Benavidez MD 2018-04-13 12:17:00 2018-04-13 12:33:00 Departed Emergency Room [facility] [id number] [facility] 2018-04-08 12:29:00 2018-04-08 12:29:00 Outpatient Felix Benavidez MD [place] [id number] Reginaldo Benavidez MD 2018-04-08 11:00:00 2018-04-08 11:00:00 Outpatient Felix Benavidez MD [place] [id number] Reginaldo Benavidez MD 2018-03-22 14:43:00 2018-03-22 14:43:00 Outpatient Felix Benavidez MD [place] [id number] Reginaldo Benavidez MD 2017-10-21 08:56:00 2017-10-21 08:56:00 Outpatient Felix Benavidez MD [place] [id number] Regnialdo Benavidez MD 2017-09-14 15:19:00 2017-09-14 15:19:00 Outpatient Felix Benavidez MD [place] [id number] Reginaldo Benavidez MD 2017-09-14 14:00:00 2017-09-14 14:00:00 Outpatient Felix Benavidez MD [place] [id number] Reginaldo Benavidez MD 2017-09-11 08:40:00 2017-09-11 08:40:00 Outpatient Felix Benavidez MD [place] [id number] Reginaldo Benavidez MD 2017-08-26 14:50:00 2017-08-27 14:17:00 Discharged Inpatient 1 ANDREA DOW [facility] [id number] [facility] 2017-08-26 11:42:00 2017-08-26 11:42:00 Outpatient Felixleanne LLANOS [id number] Reginaldo Benavidez MD 2017-08-13 15:10:00 2017-08-13 15:10:00 Outpatient Felix LLANOS [id number] Reginaldo Benavidez MD 2017-06-29 11:05:00 2017-06-29 11:05:00 Outpatient Felix LLANOS [id number] Reginaldo Benavidez MD 2017-06-21 12:39:00 2017-06-21 13:13:00 Departed Emergency Room [facility] [id number] [facility] 2017-06-17 12:48:00 2017-06-17 12:48:00 Outpatient Felix LLANOS [id number] Reginaldo Benavidez MD 2017-06-16 13:47:00 2017-06-16 13:47:00 Outpatient Felix Benavidez MD [place] [id number] Reginaldo Benavidez MD 2017-06-16 13:15:00 2017-06-16 13:15:00 Outpatient Felix Benavidez MD PA [id number] Reginaldo Benavidez MD 2017-05-22 08:59:00 2017-05-22 08:59:00 Outpatient Felix Benavidez MD PA [id number] Reginaldo Benavidez MD 2017-05-21 15:23:00 2017-05-21 15:23:00 Outpatient Felix Benavidez MD PA [id number] Reginaldo Benavidez MD 2017-05-15 12:57:00 2017-05-15 12:57:00 Outpatient Felix Benavidez MD PA [id number] Reginaldo Benavidez MD 2017-05-14 09:03:00 2017-05-14 09:03:00 Outpatient Felix LLANSO [id number] Reginaldo Benavidez MD 2017-05-06 13:37:00 2017-05-06 13:37:00 Outpatient Felix Benavidez MD [place] [id number] Reginaldo Benavidez MD 2017-05-05 14:00:00 2017-05-05 14:00:00 Outpatient Felix Benavidez MD PA [id number] Reginaldo Benavidez MD 2017-05-05 13:00:00 2017-05-05 13:00:00 Outpatient Felix Benavidez MD PA [id number] Reginaldo Benavidez MD 2017-04-15 13:30:00 2017-04-15 13:30:00 Outpatient Felix Benavidez MD PA [id number] Reginaldo Benavidez MD 2017-04-13 14:41:00 2017-04-13 14:41:00 Outpatient Felix Benavidez MD PA [id number] Reginaldo Benavidez MD 2017-04-06 15:56:00 2017-04-06 15:56:00 Outpatient Felix Benavidez MD PA [id number] Reginaldo Benavidez MD 2017-04-02 13:00:00 2017-04-02 13:00:00 Outpatient Felix Benavidez MD [place] [id number] Reginaldo Benavidez MD Results Test Description Test Time Test Comments Results Result Comments Source CXR 1 VEW - HOPD 2019-12-28 15:37:[address] [facility] : 1950 Sex: F [place] [id number] Patient Name: ENRIQUE BARRAGAN MR #: [id number] : 1950 Age/Sex: 69/F Req #: [id number] Adm Physician: Ordered by: EVA CAMPBELL MD Report #: [id number] Location: [facility] Room/Bed: Procedure: [id number] HOPD/CXR 1 VEW - HOPD Exam Date: 12/28/19 Exam Time: 1530 REPORT STATUS: Signed Chest, 1 view, 12/28/2019. History: Shortness of breath. Comparison: 04/26/2019. Findings: The cardiomediastinal silhouette and pulmonary vasculature are within normal limits for a portable exam. There is no focal consolidation or pleural effusion. Bibasilar interstitial prominence is unchanged. There are no acute osseous or soft tissue abnormalities. Impression: No acute cardiopulmonary abnormality. Signed by: Cipriano Rahman on 12/28/2019 3:37 PM Dictated By: CIPRIANO RAHMAN MD 36 Transcribed By: SUSI on 12/28/191536 COPY TO: EVA CAMPBELL MD URINALYSIS COMPLETE 2019-08-24 17:37:00 Test Item UA COLOR (test code = COLU) DARK YELLOW YELLOW A UA APPEARANCE (test code = APPU) Cloudy CLEAR A UA GLUCOSE DIPSTICK (test code = DGLUU) norm mg/dL NEGATIVE UA BILIRUBIN DIPSTICK (test code = BILU) NEGATIVE mg/dL NEGATIVE UA KETONE DIPSTICK (test code = KETU) 5 (Trace) mg/dL NEGATIVE A UA SPECIFIC GRAVITY (test code = SGU) 1.030 1.001-1.035 UA BLOOD DIPSTICK (test code = JOHNNIE) 25 (1+) Terence/uL NEGATIVE A UA PH DIPSTICK (test code = GERMAN) 5.0 5.0-8.0 UA PROTEIN DIPSTICK (test code = PROU) 30 (1+) mg/dL Neg-15 A UA UROBILINIOGEN DIPSTICK (test code = URO) 1 mg/dL 0.0-0.2 A UA NITRITE DIPSTICK (test code = CAROLYN) NEGATIVE NEGATIVE UA LEUKOCYTE ESTERASE DIPSTICK (test code = LEUU) 500 Lashae/uL (3+) u L NEGATIVE A UA WBC (test code = WBCU) 51-100 per HPF 0-5 A UA RBC (test code = RBCU) 0-3 per HPF 0-5 UA EPITHELIAL CELLS (test code = EPIU) Few (2-5/hpf) per HPF Few UA BACTERIA (test code = BACU) MANY per HPF NONE A UA MUCUS (test code = MUCU) MODERATE per LPF NONE-FEW A Urine Source? Clean CatchURINALYSIS [id number] 17:33:00* Test Item Value Reference Range Interpretation Comments UA COLOR (test code = COLU) DARK YELLOW YELLOW A UA APPEARANCE (test code = APPU) Cloudy CLEAR A UA GLUCOSE DIPSTICK (test code = DGLUU) norm mg/dL NEGATIVE UA BILIRUBIN DIPSTICK (test code = BILU) NEGATIVE mg/dL NEGATIVE UA KETONE DIPSTICK (test code = KETU) 5 (Trace) mg/dL NEGATIVE A UA SPECIFIC GRAVITY (test code = SGU) 1.030 1.001-1.035 UA BLOOD DIPSTICK (test code = JOHNNIE) 25 (1+) Terence/uL NEGATIVE A UA PH DIPSTICK (test code = GERMAN) 5.0 5.0-8.0 UA PROTEIN DIPSTICK (test code = PROU) 30 (1+) mg/dL Neg-15 A UA UROBILINIOGEN DIPSTICK (test code = URO) 1 mg/dL 0.0-0.2 A UA NITRITE DIPSTICK (test code = CAROLYN) NEGATIVE NEGATIVE UA LEUKOCYTE ESTERASE DIPSTICK (test code = LEUU) 500 Lashae/uL (3+) u L NEGATIVE A UA WBC (test code = WBCU) per HPF 0-5 UA RBC (test code = RBCU) per HPF 0-5 UA EPITHELIAL CELLS (test code = EPIU) per HPF Few UA BACTERIA (test code = BACU) per HPF NONE Urine Source? Clean CatchSodium [id number] 09:03:00* Test Item Value Reference Range Interpretation Comments Sodium Level (test code = 2951-2) 136 136-145 [facility] [id number] 09:03:00* Test Item Value Reference Range Interpretation Comments Potassium Level (test code = 2823-3) 3.1 3.5-5.1 L [facility]loride [id number] 09:03:00* Test Item Value Reference Range Interpretation Comments Chloride Level (test code = 2075-0) 104 98-107 [facility]Carbon Dioxide [id number] 09:03:00* Test Item Value Reference Range Interpretation Comments Carbon Dioxide Level (test code = 2028-9) 27 22-29 [facility]Anion [id number] 09:03:00* Test Item Value Reference Range Interpretation Comments Anion Gap (test code = 71917-6) 8.1 8-16 [facility] Urea [id number] 09:03:00* Test Item Value Reference Range Interpretation Comments Blood Urea Nitrogen (test code = 3094-0) 7 7-26 [facility]Creatinine2020-02-14 09:03:00* Test Item Value Reference Range Interpretation Comments Creatinine (test code = 2160-0) 0.54 0.57-1.11 L [facility]BUN/Creatinine [id number] 09:03:00* Test Item Value Reference Range Interpretation Comments BUN/Creatinine Ratio (test code = 3097-3) 13 6-25 [facility]aEstimat Glomerular Filtration Rate 2019-04-29 09:03:00* Test Item Value Reference Range Interpretation Comments Estimat Glomerular Filtration Rate (test code = 088140292) > 60 >60 Ranges were taken from the National Kidney Disease Education Program and the [facility] literature.Reference ranges:60 or greater: Rmoglq05-23 ( for 3 consecutive months): Chronic kidney disease 15 or less: Kidney failureMethodist Hospital AtascosaGlucose [id number] 09:03:00* Test Item Value Reference Range Interpretation Comments Glucose Level (test code = ZOW1327) 107 74-118 [facility]Calcium [id number] 09:03:00* Test Item Value Reference Range Interpretation Comments Calcium Level (test code = 10560-3) 8.3 8.4-10.2 L [facility]aWhite Blood [id number] 08:47:00* Test Item Value Reference Range Interpretation Comments White Blood Count (test code = 6690-2) 8.41 4.8-10.8 [facility]aRed Blood [id number] 08:47:00* Test Item Value Reference Range Interpretation Comments Red Blood Count (test code = 789-8) 3.76 3.6-5.1 [facility]Hemoglobin2020-02-14 08:47:00* Test Item Value Reference Range Interpretation Comments Hemoglobin (test code = 63450-4) 11.1 12.0-16.0 L [facility]Hematocrit2020-02-14 08:47:00* Test Item Value Reference Range Interpretation Comments Hematocrit (test code = 4544-3) 32.5 34.2-44.1 L [facility]aMean Corpuscular [id number] 08:47:00* Test Item Value Reference Range Interpretation Comments Mean Corpuscular Volume (test code = 787-2) 86.4 81-99 [facility]aMean Corpuscular [id number] 08:47:00* Test Item Value Reference Range Interpretation Comments Mean Corpuscular Hemoglobin (test code = 785-6) 29.5 28-32 [facility]aMean Corpuscular Hemoglobin Concent 2019-04-29 08:47:00* Test Item Value Reference Range Interpretation Comments Mean Corpuscular Hemoglobin Concent (test code = 786-4) 34.2 31-35 [facility]aRed Cell Distribution [id number] 08:47:00* Test Item Value Reference Range Interpretation Comments Red Cell Distribution Width (test code = 14211-1) 13.8 11.7 -14.4 [facility]aPlatelet [id number] 08:47:00* Test Item Value Reference Range Interpretation Comments Platelet Count (test code = 777-3) 155 140-360 [facility]aNeutrophils (%) (Auto)2019-04-29 08:47:00 * Test Item Value Reference Range Interpretation Comments Neutrophils (%) (Auto) (test code = 62635-9) 70.8 38.7-80.0 [facility]aLymphocytes (%) (Auto)2019-04-29 08:47:00 * Test Item Value Reference Range Interpretation Comments Lymphocytes (%) (Auto) (test code = 736-9) 18.2 18.0-39.1 [facility]aMonocytes (%) (Auto)2019-04-29 08:47:00* Test Item Value Reference Range Interpretation Comments Monocytes (%) (Auto) (test code = 5905-5) 8.9 4.4-11.3 [facility]osinophils (%) (Auto)2019-04-29 08:47:00 * Test Item Value Reference Range Interpretation Comments Eosinophils (%) (Auto) (test code = 713-8) 0.6 0.0-6.0 [facility]aBasophils (%) (Auto)2019-04-29 08:47:00* Test Item Value Reference Range Interpretation Comments Basophils (%) (Auto) (test code = 706-2) 0.5 0.0-1.0 [facility]aIM GRANULOCYTES %2019-04-29 08:47:00* Test Item Value Reference Range Interpretation Comments IM GRANULOCYTES % (test code = IM GRANULOCYTES %) 1.0 0.0- 1.0 [facility]aNeutrophils # (Auto)2019-04-29 08:47:00* Test Item Value Reference Range Interpretation Comments Neutrophils # (Auto) (test code = 751-8) 6.0 2.1-6.9 [facility]aLymphocytes # (Auto)2019-04-29 08:47:00* Test Item Value Reference Range Interpretation Comments Lymphocytes # (Auto) (test code = 56874-6) 1.5 1.0-3.2 [facility]aMonocytes # (Auto)2019-04-29 08:47:00* Test Item Value Reference Range Interpretation Comments Monocytes # (Auto) (test code = 742-7) 0.8 0.2-0.8 [facility]aEosinophils # (Auto)2019-04-29 08:47:00* Test Item Value Reference Range Interpretation Comments Eosinophils # (Auto) (test code = 711-2) 0.1 0.0-0.4 [facility]aBasophils # (Auto)2019-04-29 08:47:00* Test Item Value Reference Range Interpretation Comments Basophils # (Auto) (test code = 704-7) 0.0 0.0-0.1 [facility]aAbsolute Immature Granulocyte (auto 2019-04-29 08:47:00* Test Item Value Reference Range Interpretation Comments Absolute Immature Granulocyte (auto (gwendolyn t code = Absolute Immature Granulocyte (auto) 0.08 0-0.1 [facility]aThyroid Stimulating Hormone (TSH) 2019-04-28 22:08:00* Test Item Value Reference Range Interpretation Comments Thyroid Stimulating Hormone (TSH) (test code = 97561-8) 0.520 0.350-4.940 [facility]aFree Thyroxine [id number] 13:54:00* Test Item Value Reference Range Interpretation Comments Free Thyroxine Index (test code = 92948-4) 2.7705 1.4-3.8 [facility]4)2019-04-28 13:54:00* Test Item Value Reference Range Interpretation Comments Thyroxine (T4) (test code = 3026-2) 8.34 4.5-10.9 Our current method for Total T4 is not recommended for use as the only marker fo r evaluating patients for thyroid disorders.[facility]aTriiodothyronine (T3) Fskhmf0186-12-79 13:54:00* Test Item Value Reference Range Interpretation Comments Triiodothyronine (T3) Uptake (test code = 3050-2) 33.22 22.5 -37.0 [facility]aVitamin B12 Lbwiy8151-00-12 13:09:00* Test Item Value Reference Range Interpretation Comments Vitamin B12 Level (test code = 33633-2) 648 213-816 [facility]aIron Gwkaf5530-92-94 12:26:00* Test Item Value Reference Range Interpretation Comments Iron Level (test code = 2498-4) 46 50-170 L [facility]aBedside Dcybfdc5405-23-94 15:43:00* Test Item Value Reference Range Interpretation Comments Bedside Glucose (test code = 00192-5) 267 70-120 H Meter ID: [id number] Hospital AtascosaUrine Culture 2019-04-27 15:19:00* Test Item Value Reference Range Interpretation Comments Urine Culture (test code = 630-4) No Result Data Provided [facility]aProthrombin Atgs4095-17-81 07:33:00* Test Item Value Reference Range Interpretation Comments Prothrombin Time (test code = 5902-2) 13.9 11.9-14.5 [facility]aProthromb Time International Ratio 2019-04-26 07:33:00* Test Item Value Reference Range Interpretation Comments Prothromb Time International Ratio (test code = 6301-6) 1.01 Oral Anticoagulant Therapy INR Values:1. Low Intensity Therapy 1.5 - 2.02 . Moderate Intensity Therapy 2.0 - 3.03. High Intensity Therapy(1) 2.5 - 3. 54. High Intensity Therapy(2) 3.0 - 4.05. Panic Value INR > 5.0 [facility]aActivated Partial Thromboplast Time 2019-04-26 07:33:00* Test Item Value Reference Range Interpretation Comments Activated Partial Thromboplast Time (test code = 69758-5) 38.1 23.8-35.5 H [facility]aCHEST 2 QJTSO9320-94-22 12:57:00 [facility] [address] [place], [place] [address] Patient Name: ENRIQUE BARRAGAN MR #: [id number] : 1950 Age/Sex: 68/F Req #: [id number] Adm Physician: JANETH FERNANDEZ MD Ordered by: JANETH FERNANDEZ MD Report #: [id number] Location: MED/SURG3 Room/Bed: [facility] Procedure: [id number] DX/ CHEST 2 VIEWS Exam Date: 04/25/19 Exam Time: 1155 REPORT STATUS: Signed Exam: PA and lateral chest radiograph Clinical history: Shortness of breath Compar daja: April 24, 2019 Findings: There is no evidence of pulmonary consolid ation, pleural effusion, or pneumothorax. Increased bilateral interstitial pul monary opacities are again noted with mild atelectatic changes in the lower lo bes likely chronic in nature. The cardiac size is within normal limits. The re gional osseous structures are unremarkable. Impression: 1. Bilateral in terstitial lung disease again noted. No acute cardiorespiratory changes. Signed by: Dr. Saleem Garcia MD on 04/25/2019 1:07 PM Dictated By: TYLER GARCIA MD 1300 Transcr ibed By: SUSI on 04/25/19 1302 COPY TO: JANETH FERNANDEZ MD FEMUR TWO VIEW MINIMUM LBAZZ8385-35-26 23:37:00 [facility] [address] [place], [place] [address] Patient Name: ENRIQUE BARRAGAN MR #: [id number] : 1950 Age/Sex: 68/F Req #: [id number] Adm Physician: JANETH FERNANDEZ MD Ordered by: CIPRIANO SONG DO Report #: [id number] [facility] [place] [address] Procedure: [id number] DX/FE MUR TWO VIEW MINIMUM RIGHT Exam Date: Exam Time: REPORT STATUS: Signed Right hip w ith pelvis AP 3 - views, and right femur 3 views HISTORY: Pain status post fall. COMPARISON: None FINDINGS: Comminuted displaced intertro chanteric fracture of the right femur. Remote fracture of the left femur statu s post ORIF with hardware partially visualized. Vascular calcifications. Degen erative changes of the bilateral hip and SI joints. Mild degenerative changes of the knee. Multiple phleboliths projected on the lower the pelvis. IMPR ESSION: Comminuted displaced intertrochanteric fracture of the right femur . Signed by: Dr. Evelyn Oquendo M.D. on 04/24/2019 11:40 PM Dic tated By: BRAD OQUENDO MD, MD 2340 COPY TO: CIPRIANO SONG DO HIP RIGHT 2-3 VW (+/- PELVIS)2019-04-24 23:37:00 [place] [address] Patient Name: ENRIQUE BARRAGAN MR #: [id number] : 1950 Age/Sex: 68/F Req #: [id number] Adm Physician: JANETH FERNANDEZ MD Ordered by: CIPRIANO SONG DO Report #: [id number] Location: [facility] Room/Bed: [place] [address] Procedure: [id number] DX/HI P RIGHT 2-3 VW (+/- PELVIS) Exam Date: Exam Time: REPORT STATUS: Signed Right hip with pelvis AP 3 - views, and right femur 3 views HISTORY: Pain status pos t fall. COMPARISON: None FINDINGS: Comminuted displaced intertr ochanteric fracture of the right femur. Remote fracture of the left femur stat us post ORIF with hardware partially visualized. Vascular calcifications. Dege nerative changes of the bilateral hip and SI joints. Mild degenerative changes of the knee. Multiple phleboliths projected on the lower the pelvis. IMP RESSION: Comminuted displaced intertrochanteric fracture of the right femu r. Signed by: Dr. Evelyn Oquendo M.D. on 04/24/2019 11:40 PM Di ctated By: BRAD OQUENDO MD, MD 39 Transcribed By: SUSI on 04/24/192339 COPY TO: CIPRIANO SONG DO Total Oixrfzxsx0399-75-76 22:23:00* Test Item Value Reference Range Interpretation Comments Total Bilirubin (test code = 1975-2) 1.6 0.2-1.2 H [facility]aAspartate Amino Transf (AST/SGOT) 2019-04-24 22:23:00* Test Item Value Reference Range Interpretation Comments Aspartate Amino Transf (AST/SGOT) (test code = Aspartate Amino Transf (AST/SGOT)) 45 5-34 H [facility]aAlanine Aminotransferase (ALT/SGPT) 2019-04-24 22:23:00* Test Item Value Reference Range Interpretation Comments Alanine Aminotransferase (ALT/SGPT) (test code = 1742-6) 38 0-55 [facility]aTotal Frkwmwx8555-90-24 22:23:00* Test Item Value Reference Range Interpretation Comments Total Protein (test code = 2885-2) 9.1 6.5-8.1 H [facility]aAlbumin2020-02-09 22:23:00* Test Item Value Reference Range Interpretation Comments Albumin (test code = 1751-7) 4.4 3.5-5.0 [facility]aGlobulin2020-02-09 22:23:00* Test Item Value Reference Range Interpretation Comments Globulin (test code = 77200-1) 4.7 2.3-3.5 H [facility]aAlbumin/Globulin Cvvxx4843-37-25 22:23:00 * Test Item Value Reference Range Interpretation Comments Albumin/Globulin Ratio (test code = 1759-0) 0.9 0.8-2.0 [facility]aAlkaline Zljvmysgvyz5384-19-87 22:23:00* Test Item Value Reference Range Interpretation Comments Alkaline Phosphatase (test code = 6768-6) 90 40-150 [facility]aUrine STE9780-33-63 19:15:00* Test Item Value Reference Range Interpretation Comments Urine WBC (test code = 5821-4) 21-50 0-5 H [facility]aUrine OFV7728-59-46 19:15:00* Test Item Value Reference Range Interpretation Comments Urine RBC (test code = 20952-3) 0-5 0-5 [facility]aUrine Nifiyhve7383-01-39 19:15:00* Test Item Value Reference Range Interpretation Comments Urine Bacteria (test code = 02059-5) MANY NONE H [facility]aUrine Epithelial Yfbkz0611-28-42 19:15:00 * Test Item Value Reference Range Interpretation Comments Urine Epithelial Cells (test code = 91294-6) FEW NONE [facility]aUrine QMZ0485-47-46 19:15:00* Test Item Value Reference Range Interpretation Comments Urine WBC (test code = 5821-4) 21-50 0-5 H [facility]aUrine YLM6277-10-97 19:15:00* Test Item Value Reference Range Interpretation Comments Urine RBC (test code = 74353-8) 0-5 0-5 [facility]aUrine Keezmjrv1946-03-18 19:15:00* Test Item Value Reference Range Interpretation Comments Urine Bacteria (test code = 88879-5) MANY NONE H [facility]aUrine Epithelial Rpfly0283-04-56 19:15:00 * Test Item Value Reference Range Interpretation Comments Urine Epithelial Cells (test code = 08241-7) FEW NONE [facility]aUrine Eifdu9776-37-97 19:08:00* Test Item Value Reference Range Interpretation Comments Urine Color (test code = 5778-6) YELLOW YELLOW [facility]aU[facility] Vfzznjh3326-40-64 19:08:00* Test Item Value Reference Range Interpretation Comments Urine Clarity (test code = 54078-2) CLOUDY CLEAR H [facility]aUrine Specific Zmfywyp1047-06-06 19:08:00 * Test Item Value Reference Range Interpretation Comments Urine Specific [place] (test code = 5811-5) 1.025 1.010-1.02 5 [facility]aUrine jJ2453-43-98 19:08:00* Test Item Value Reference Range Interpretation Comments Urine pH (test code = 37970-3) 7 5-7 [facility] Leukocyte Yoyzbhlk5648-84-56 19:08:00* Test Item Value Reference Range Interpretation Comments Urine Leukocyte Esterase (test code = 5799-2) SMALL NEGATIVE [facility]aUrine Hhcipea2756-09-98 19:08:00* Test Item Value Reference Range Interpretation Comments Urine Nitrite (test code = 55741-4) POSITIVE NEGATIVE [facility] Ylhzllt2611-39-91 19:08:00* Test Item Value Reference Range Interpretation Comments Urine Protein (test code = 5804-0) 1+ NEGATIVE H [facility]aUrine Glucose (UA)2019-04-24 19:08:00* Test Item Value Reference Range Interpretation Comments Urine Glucose (UA) (test code = 2349-9) NEGATIVE NEGATIVE [facility]aU[facility] Rstfsbv0963-33-10 19:08:00* Test Item Value Reference Range Interpretation Comments Urine Ketones (test code = 14287-5) 2+ NEGATIVE H [facility]aUrine Pqnkwdkzdgkh2172-52-90 19:08:00* Test Item Value Reference Range Interpretation Comments Urine Urobilinogen (test code = 44163-5) 1 0.2-1 [facility]aU[facility] Eqjxokhyn2180-48-68 19:08:00* Test Item Value Reference Range Interpretation Comments Urine Bilirubin (test code = 1978-6) NEGATIVE NEGATIVE [facility]aU[facility] Weewq1652-99-09 19:08:00* Test Item Value Reference Range Interpretation Comments Urine Blood (test code = 11640-5) NEGATIVE NEGATIVE [facility]aU[facility] Oftjl5262-26-72 19:08:00* Test Item Value Reference Range Interpretation Comments Urine Color (test code = 5778-6) YELLOW YELLOW [facility] Gqgtbek7586-68-89 19:08:00* Test Item Value Reference Range Interpretation Comments Urine Clarity (test code = 21235-3) CLOUDY CLEAR H [facility]aU[facility] Specific Exvxrip3915-96-39 19:08:00 * Test Item Value Reference Range Interpretation Comments Urine Specific [place] (test code = 5811-5) 1.025 1.010-1.02 5 [facility]aU[facility] pF8169-58-29 19:08:00* Test Item Value Reference Range Interpretation Comments Urine pH (test code = 13610-0) 7 5-7 [facility] Leukocyte Csxlidfm6160-69-59 19:08:00* Test Item Value Reference Range Interpretation Comments Urine Leukocyte Esterase (test code = 5799-2) SMALL NEGATIVE [facility]aU[facility] Cwhghtm0885-61-99 19:08:00* Test Item Value Reference Range Interpretation Comments Urine Nitrite (test code = 61007-0) POSITIVE NEGATIVE [facility]aUrine Tejyoca9288-35-81 19:08:00* Test Item Value Reference Range Interpretation Comments Urine Protein (test code = 5804-0) 1+ NEGATIVE H [facility]aUrine Glucose (UA)2019-04-24 19:08:00* Test Item Value Reference Range Interpretation Comments Urine Glucose (UA) (test code = 2349-9) NEGATIVE NEGATIVE [facility] Psjkgkz8566-26-55 19:08:00* Test Item Value Reference Range Interpretation Comments Urine Ketones (test code = 66721-6) 2+ NEGATIVE H [facility]aUrine Bwchkeehsnpw2762-97-64 19:08:00* Test Item Value Reference Range Interpretation Comments Urine Urobilinogen (test code = 70213-1) 1 0.2-1 [facility]aU[facility] Tuaxbjdvf6797-63-00 19:08:00* Test Item Value Reference Range Interpretation Comments Urine Bilirubin (test code = 1978-6) NEGATIVE NEGATIVE [facility]aU[facility] Otgow8725-75-05 19:08:00* Test Item Value Reference Range Interpretation Comments Urine Blood (test code = 77596-7) NEGATIVE NEGATIVE [facility]aB-Type Natriuretic Yurjpjt5534-88-23 18:48:00* Test Item Value Reference Range Interpretation Comments B-Type Natriuretic Peptide (test code = 74329-3) < 10.0 0-100 [facility]aB-Type Natriuretic Mrbsurg7805-98-15 18:48:00* Test Item Value Reference Range Interpretation Comments B-Type Natriuretic Peptide (test code = 58389-8) < 10.0 0-100 [facility]aCHEST 2 WARJI6752-64-04 18:42:00 [facility] [address] [place] [address] Patient Name: ENRIQUE BARRAGAN MR #: [id number] : 1950 Age/Sex: 68/F Req #: [id number] Adm Physician: Ordered by: CIPRIANO QUAN INSPECTION AND TESTING SUPERVISOR Report #: [id number] Location: ER Room/Bed: Procedure: [id number] DX/C HEST 2 VIEWS Exam Date: 04/24/19 Exam Time: 1806 REPORT STATUS: Signed EXAMINATION: CHEST 2 VIEWS INDICATION: COPD exacerbation, shortness of breath. COMPARISON: Chest radiograph 08/26/2017. Images from CT chest 08/26/2017, the report is not available at the time of the dictation. FINDINGS: TUBES and LINES: None. LUNGS: Moderate lung volumes with interstitial and patchy opacities in the lower lungs and peripherally. No new consolidation. Focal opacity in the right midlung appears unchanged compared to prior chest radiograph on 08/25/2017. PLEURA: No pleural effusion or pneumothorax. HEART AND MEDIASTINUM: The cardiomediastinal silhouette is unremarkable. There are atherosclerotic calcifications within the aorta. BONES AND SOFT T ISSUES: No acute osseous lesion. Soft tissues are unremarkable. UPPER A BDOMEN: No free air under the diaphragm. IMPRESSION: Similar appeara nce of fibrotic changes of the lungs. No new consolidation. Signed by: Dr. Shreya Ayala MD on 04/24/2019 6:45 PM Dictated By: SHREYA AYALA MD Electronic ally Signed By: SHREYA AYALA MD on 04/24/191844 Transcribed By: SUSI on 04/24 COPY TO: CIPRIANO QUAN INSPECTION AND TESTING SUPERVISOR Creatine Kinase MB 2019-04-24 18:35:00* Test Item Value Reference Range Interpretation Comments Creatine Kinase MB (test code = 30597-6) 0.60 0-5.0 [facility]aTroponin D0569-05-18 18:35:00* Test Item Value Reference Range Interpretation Comments Troponin I (test code = ZFV9915) < 0.001 0-0.300 [facility]aCreatine Kinase JV4898-91-08 18:35:00* Test Item Value Reference Range Interpretation Comments Creatine Kinase MB (test code = 69948-2) 0.60 0-5.0 [facility]aTroponin T6506-51-23 18:35:00* Test Item Value Reference Range Interpretation Comments Troponin I (test code = OPY1888) < 0.001 0-0.300 [facility]aInfluenza Virus Types A,B Antigen 2019-04-24 18:28:00* Test Item Value Reference Range Interpretation Comments Influenza Virus Types A,B Antigen (test code = 81065-6) NEGATIVE NEGATIVE [facility]aGroup A Streptococcus Unnypa2801-71-03 18:28:00* Test Item Value Reference Range Interpretation Comments Group A Streptococcus Screen (test code = 21365-1) NEGATIVE NEG ATIVE [facility]aInfluenza Virus Types A,B Antigen 2019-04-24 18:28:00* Test Item Value Reference Range Interpretation Comments Influenza Virus Types A,B Antigen (test code = 62041-3) NEGATIVE NEGATIVE [facility]aGroup A Streptococcus Ecpbnd1864-07-82 18:28:00* Test Item Value Reference Range Interpretation Comments Group A Streptococcus Screen (test code = 34828-7) NEGATIVE NEG ATIVE [facility]woododium Ohnvv8057-67-24 18:25:00* Test Item Value Reference Range Interpretation Comments Sodium Level (test code = 2951-2) 136 136-145 [facility]aPotassium Icmcg9688-66-05 18:25:00* Test Item Value Reference Range Interpretation Comments Potassium Level (test code = 2823-3) 4.4 3.5-5.1 [facility]aChloride Avyhb7346-44-86 18:25:00* Test Item Value Reference Range Interpretation Comments Chloride Level (test code = 2075-0) 96 98-107 L [facility]aCarbon Dioxide Vencs8777-09-83 18:25:00* Test Item Value Reference Range Interpretation Comments Carbon Dioxide Level (test code = 2028-9) 21 22-29 L [facility]aAnion Hgv5750-36-15 18:25:00* Test Item Value Reference Range Interpretation Comments Anion Gap (test code = 54012-9) 23.4 8-16 H [facility]aBlood Urea Hgviakcp7696-76-13 18:25:00* Test Item Value Reference Range Interpretation Comments Blood Urea Nitrogen (test code = 3094-0) 16 7-26 [facility]aCreatinine2020-02-09 18:25:00* Test Item Value Reference Range Interpretation Comments Creatinine (test code = 2160-0) 0.92 0.57-1.11 [facility]aBUN/Creatinine Zihxz7145-63-84 18:25:00* Test Item Value Reference Range Interpretation Comments BUN/Creatinine Ratio (test code = 3097-3) 17 6- [facility]cosaEstimat Glomerular Filtration Rate 2019-04-24 18:25:00* Test Item Value Reference Range Interpretation Comments Estimat Glomerular Filtration Rate (test code = 915643553) > 60 >60 Ranges were taken from the National Kidney Disease Education Program and the [facility] literature.Reference ranges:60 or greater: Hdzqbk25-46 ( for 3 consecutive months): Chronic kidney disease 15 or less: Kidney failureMethodist Hospital AtascosaGlucose Cixye2835-21-83 18:25:00* Test Item Value Reference Range Interpretation Comments Glucose Level (test code = ZZH2104) 88 74-118 [facility]aCalcium Bppvu8278-84-64 18:25:00* Test Item Value Reference Range Interpretation Comments Calcium Level (test code = 93345-4) 10.1 8.4-10.2 [facility]aTotal Elpjonhwh6227-21-30 18:25:00* Test Item Value Reference Range Interpretation Comments Total Bilirubin (test code = 1975-2) 1.5 0.2-1.2 H [facility] AtascosaAspartate Amino Transf (AST/SGOT) 2019-04-24 18:25:00* Test Item Value Reference Range Interpretation Comments Aspartate Amino Transf (AST/SGOT) (test code = Aspartate Amino Transf (AST/SGOT)) 44 5-34 H [facility]cosaAlanine Aminotransferase (ALT/SGPT) 2019-04-24 18:25:00* Test Item Value Reference Range Interpretation Comments Alanine Aminotransferase (ALT/SGPT) (test code = 1742-6) 36 0-55 [facility]aTotal Ejooxhr9935-88-62 18:25:00* Test Item Value Reference Range Interpretation Comments Total Protein (test code = 2885-2) 8.5 6.5-8.1 H [facility]aAlbumin2020-02-09 18:25:00* Test Item Value Reference Range Interpretation Comments Albumin (test code = 1751-7) 4.1 3.5-5.0 [facility]aGlobulin2020-02-09 18:25:00* Test Item Value Reference Range Interpretation Comments Globulin (test code = 94281-5) 4.4 2.3-3.5 H [facility]aAlbumin/Globulin Ezgtd8275-67-77 18:25:00 * Test Item Value Reference Range Interpretation Comments Albumin/Globulin Ratio (test code = 1759-0) 0.9 0.8-2.0 [facility]cosaAlkaline Vtfckffsibn6769-70-40 18:25:00* Test Item Value Reference Range Interpretation Comments Alkaline Phosphatase (test code = 6768-6) 84 40-150 [facility]aCreatine Eklrxa8246-58-45 18:25:00* Test Item Value Reference Range Interpretation Comments Creatine Kinase (test code = 2157-6) 31 29-168 [facility]aCreatine Qvognn4019-67-78 18:25:00* Test Item Value Reference Range Interpretation Comments Creatine Kinase (test code = 2157-6) 31 29-168 [facility]aWhite Blood Rzslm6858-78-32 18:09:00* Test Item Value Reference Range Interpretation Comments White Blood Count (test code = 6690-2) 11.28 4.8-10.8 H [facility]aRed Blood Hkckd9850-13-20 18:09:00* Test Item Value Reference Range Interpretation Comments Red Blood Count (test code = 789-8) 5.02 3.6-5.1 [facility]aHemoglobin2020-02-09 18:09:00* Test Item Value Reference Range Interpretation Comments Hemoglobin (test code = 73222-8) 15.3 12.0-16.0 [facility]aHematocrit2020-02-09 18:09:00* Test Item Value Reference Range Interpretation Comments Hematocrit (test code = 4544-3) 44.3 34.2-44.1 H [facility]aMean Corpuscular Cpidhp4874-10-51 18:09:00* Test Item Value Reference Range Interpretation Comments Mean Corpuscular Volume (test code = 787-2) 88.2 81-99 [facility]aMean Corpuscular Twzeroedng5711-43-24 18:09:00* Test Item Value Reference Range Interpretation Comments Mean Corpuscular Hemoglobin (test code = 785-6) 30.5 28-32 [facility]aMean Corpuscular Hemoglobin Concent 2019-04-24 18:09:00* Test Item Value Reference Range Interpretation Comments Mean Corpuscular Hemoglobin Concent (test code = 786-4) 34.5 31-35 [facility]aRed Cell Distribution Frrdr4155-66-81 18:09:00* Test Item Value Reference Range Interpretation Comments Red Cell Distribution Width (test code = 34951-0) 12.5 11.7 -14.4 [facility]cosaPlatelet Brnyr0966-39-15 18:09:00* Test Item Value Reference Range Interpretation Comments Platelet Count (test code = 777-3) 186 140-360 [facility]aNeutrophils (%) (Auto)2019-04-24 18:09:00 * Test Item Value Reference Range Interpretation Comments Neutrophils (%) (Auto) (test code = 67404-5) 73.8 38.7-80.0 [facility]aLymphocytes (%) (Auto)2019-04-24 18:09:00 * Test Item Value Reference Range Interpretation Comments Lymphocytes (%) (Auto) (test code = 736-9) 17.6 18.0-39.1 L [facility]aMonocytes (%) (Auto)2019-04-24 18:09:00* Test Item Value Reference Range Interpretation Comments Monocytes (%) (Auto) (test code = 5905-5) 7.7 4.4-11.3 [facility]aEosinophils (%) (Auto)2019-04-24 18:09:00 * Test Item Value Reference Range Interpretation Comments Eosinophils (%) (Auto) (test code = 713-8) 0.0 0.0-6.0 [facility]aBasophils (%) (Auto)2019-04-24 18:09:00* Test Item Value Reference Range Interpretation Comments Basophils (%) (Auto) (test code = 706-2) 0.5 0.0-1.0 [facility]cosaIM GRANULOCYTES %2019-04-24 18:09:00* Test Item Value Reference Range Interpretation Comments IM GRANULOCYTES % (test code = IM GRANULOCYTES %) 0.4 0.0- 1.0 [facility]aNeutrophils # (Auto)2019-04-24 18:09:00* Test Item Value Reference Range Interpretation Comments Neutrophils # (Auto) (test code = 751-8) 8.3 2.1-6.9 H [facility]aLymphocytes # (Auto)2019-04-24 18:09:00* Test Item Value Reference Range Interpretation Comments Lymphocytes # (Auto) (test code = 11601-1) 2.0 1.0-3.2 [facility]aMonocytes # (Auto)2019-04-24 18:09:00* Test Item Value Reference Range Interpretation Comments Monocytes # (Auto) (test code = 742-7) 0.9 0.2-0.8 H [facility]aEosinophils # (Auto)2019-04-24 18:09:00* Test Item Value Reference Range Interpretation Comments Eosinophils # (Auto) (test code = 711-2) 0.0 0.0-0.4 [facility]aBasophils # (Auto)2019-04-24 18:09:00* Test Item Value Reference Range Interpretation Comments Basophils # (Auto) (test code = 704-7) 0.1 0.0-0.1 [facility]aAbsolute Immature Granulocyte (auto 2019-04-24 18:09:00* Test Item Value Reference Range Interpretation Comments Absolute Immature Granulocyte (auto (gwendolyn t code = Absolute Immature Granulocyte (auto) 0.05 0-0.1 [facility]cosaLACTIC TLGH1808-31-43 07:43:00* Test Item Value Reference Range Interpretation Comments LACTIC ACID (test code = LACT) 0.8 mmol/L 0.4-1.9 N BASIC METABOLIC EWXUV8824-39-43 06:04:00* Test Item Value Reference Range Interpretation Comments SODIUM (test code = NA) 141 mmol/L 136-145 N POTASSIUM (test code = K) 4.6 mmol/L 3.5-5.1 N CHLORIDE (test code = CL) 111.0 mmol/L 98-107 H CARBON DIOXIDE (test code = CO2) 17.0 mmol/L 21-32 L ANION GAP (test code = GAP) 17.6 10-20 N GLUCOSE (test code = GLU) 119 mg/dL 74-106 H BLOOD UREA NITROGEN (test code = BUN) 8 mg/dL 7-18 N GLOMERULAR FILTRATION RATE (test code = GFR) > 60 mL/min >=60 Estimated GFR by using Modified MDRD formula.Chronic kidney disease is defined as either kidney damageor GFR <60 mL/min/1.73 m2 for >3 months. CREATININE (test code = CREAT) 0.50 mg/dL 0.55-1.02 L Note change in reference range due to change in reagent. BUN/CREATININE RATIO (test code = BUN/CREA) 15.8 10-20 N CALCIUM (test code = CA) 7.7 mg/dL 8.5-10.1 L BASIC METABOLIC [id number] 05:59:00* Test Item Value Reference Range Interpretation Comments SODIUM (test code = NA) 141 mmol/L 136-145 N POTASSIUM (test code = K) 4.6 mmol/L 3.5-5.1 N CHLORIDE (test code = CL) 111.0 mmol/L 98-107 H CARBON DIOXIDE (test code = CO2) mmol/L 21-32 ANION GAP (test code = GAP) 10-20 GLUCOSE (test code = GLU) mg/dL 74-106 BLOOD UREA NITROGEN (test code = BUN) mg/dL 7-18 GLOMERULAR FILTRATION RATE (test code = GFR) mL/min >=60 CREATININE (test code = CREAT) mg/dL 0.55-1.02 BUN/CREATININE RATIO (test code = BUN/CREA) 10-20 CALCIUM (test code = CA) mg/dL 8.5-10.1 CBC W/AUTO [id number] 05:38:00* Test Item Value Reference Range Interpretation Comments WHITE BLOOD CELL (test code = WBC) 6.4 K/mm3 4.5-12.5 N RED BLOOD CELL (test code = RBC) 4.31 mill/mm3 3.7-5.2 N HEMOGLOBIN (test code = HGB) 13.0 gram/dL 11.5-15.5 N HEMATOCRIT (test code = HCT) 39.2 % 36.0-46.0 N MEAN CELL VOLUME (test code = MCV) 91.0 fL 80-98 N MEAN CELL HGB (test code = MCH) 30.2 picogram 27.0-33.0 N MEAN CELL HGB CONCETRATION (test code = MCHC) 33.2 gram/dL 33.0-36. 0 N RED CELL DISTRIBUTION WIDTH (test code = RDW) 12.2 % 11.6-16. 2 N RED CELL DISTRIBUTION WIDTH SD (test code = RDW-SD) 40.7 fL 37 .0-51.0 N PLATELET COUNT (test code = PLT) 184 K/mm3 150-450 N MEAN PLATELET VOLUME (test code = MPV) 8.7 fL 6.7-11.0 N NEUTROPHIL % (test code = NT%) 84.4 % 39.0-69.0 H IMMATURE GRANULOCYTE % (test code = IG%) 0.8 % 0.0-5.0 N LYMPHOCYTE % (test code = LY%) 9.6 % 25.0-55.0 L MONOCYTE % (test code = MO%) 5.0 % 0.0-10.0 N EOSINOPHIL % (test code = EO%) 0.0 % 0.0-5.0 N BASOPHIL % (test code = BA%) 0.2 % 0.0-1.0 N NUCLEATED RBC % (test code = NRBC%) 0.0 % 0-0 N NEUTROPHIL # (test code = NT#) 5.36 K/mm3 1.8-7.7 N IMMATURE GRANULOCYTE # (test code = IG#) 0.05 x10 3/uL 0-0.03 H LYMPHOCYTE # (test code = LY#) 0.61 K/mm3 1.0-5.0 L MONOCYTE # (test code = MO#) 0.32 K/mm3 0-0.8 N EOSINOPHIL # (test code = EO#) 0.00 K/mm3 0.0-0.5 N BASOPHIL # (test code = BA#) 0.01 K/mm3 0.0-0.2 N NUCLEATED RBC # (test code = NRBC#) 0.00 K/mm3 0.0-0.1 N CBC W/AUTO [id number] 05:37:00* Test Item Value Reference Range Interpretation Comments WHITE BLOOD CELL (test code = WBC) K/mm3 4.5-12.5 RED BLOOD CELL (test code = RBC) mill/mm3 3.7-5.2 HEMOGLOBIN (test code = HGB) 13.0 gram/dL 11.5-15.5 N HEMATOCRIT (test code = HCT) 39.2 % 36.0-46.0 N MEAN CELL VOLUME (test code = MCV) fL 80-98 MEAN CELL HGB (test code = MCH) picogram 27.0-33.0 MEAN CELL HGB CONCETRATION (test code = MCHC) gram/dL 33.0-36. 0 RED CELL DISTRIBUTION WIDTH (test code = RDW) % 11.6-16. 2 RED CELL DISTRIBUTION WIDTH SD (test code = RDW-SD) fL 37 .0-51.0 PLATELET COUNT (test code = PLT) K/mm3 150-450 MEAN PLATELET VOLUME (test code = MPV) fL 6.7-11.0 NEUTROPHIL % (test code = NT%) % 39.0-69.0 IMMATURE GRANULOCYTE % (test code = IG%) % 0.0-5.0 LYMPHOCYTE % (test code = LY%) % 25.0-55.0 MONOCYTE % (test code = MO%) % 0.0-10.0 EOSINOPHIL % (test code = EO%) % 0.0-5.0 BASOPHIL % (test code = BA%) % 0.0-1.0 NEUTROPHIL # (test code = NT#) K/mm3 1.8-7.7 LYMPHOCYTE # (test code = LY#) K/mm3 1.0-5.0 MONOCYTE # (test code = MO#) K/mm3 0-0.8 EOSINOPHIL # (test code = EO#) K/mm3 0.0-0.5 BASOPHIL # (test code = BA#) K/mm3 0.0-0.2 PROCALCITONIN (PCT)2018-05-20 03:17:00* Test Item Value Reference Range Interpretation Comments PROCALCITONIN (PCT) (test code = PROCAL) < 0.05 ng/ml Concentration Interpretation (ng/mL) <0.51 Sepsis is not likely. Local bacterial infection is possible. (LOW RISK for progression to Sepsis) 0.51 - 2.00 Sepsis is possible, but other conditions are known to elevate PCT as well. (MODERATE RISK for progression to Sepsis) > 2.00 Sepsis is likely, unless other causes are known. (HIGH RISK for progression to Severe Sepsis or Septic Shock) 10.00 High likelihood of Severe Sepsis or Septic or higher Shock. *Increased PCT levels may not always be related to systemic bacterial infection.*Low PCT levels do not automatically exclude the presence of bacterial infection.*All results should be interpreted taking into account the patients history. LACTIC [id number] 18:22:00* Test Item Value Reference Range Interpretation Comments LACTIC ACID (test code = LACT) 2.4 MMOL/L 0.4-1.9 HH Results called to SOHAN by [email or web address] 05/19/18 1821Critical results verified and read back by Nurse? Y URINALYSIS [id number] 16:04:00* Test Item Value Reference Range Interpretation Comments UA COLOR (test code = COLU) LIGHT YELLOW YELLOW UA APPEARANCE (test code = APPU) CLEAR CLEAR UA GLUCOSE DIPSTICK (test code = DGLUU) NORMAL mg/dL NEGATIVE UA BILIRUBIN DIPSTICK (test code = BILU) NEGATIVE mg/dL NEGATIVE UA KETONE DIPSTICK (test code = KETU) neg mg/dL NEGATIVE UA SPECIFIC GRAVITY (test code = SGU) 1.005 1.001-1.035 UA BLOOD DIPSTICK (test code = JOHNNIE) neg Terence/uL NEGATIVE UA PH DIPSTICK (test code = GERMAN) 7.0 5.0-8.0 UA PROTEIN DIPSTICK (test code = PROU) 15 (TRACE) mg/dL Neg-15 A UA UROBILINIOGEN DIPSTICK (test code = URO) norm mg/dL 0.0-0.2 UA NITRITE DIPSTICK (test code = CAROLYN) NEGATIVE NEGATIVE UA LEUKOCYTE ESTERASE DIPSTICK (test code = LEUU) 100/uL (2+) uL NE GATIVE A UA WBC (test code = WBCU) 3-5 per HPF 0-5 IN SOME URINARY TRACT INFECTIONS THERE MAY NOT BE ENOUGHWBCs IN THE URINE TO TRIGGER AN AUTOMATIC (REFLEX) URINECULTURE. A SEPERATE ORDER FOR URINE CULTURE IS RECOMMENDEDIF THERE IS STRONG SUPPORT FOR A URINARY TRACT INFECTIONCLINICALLY. UA RBC (test code = RBCU) NONE SEEN per HPF 0-5 UA EPITHELIAL CELLS (test code = EPIU) Moderate (5-10/hpf) per HPF Few UA BACTERIA (test code = BACU) TRACE per HPF NONE Urine Source? Clean CatchURINALYSIS [id number] 15:58:00* Test Item Value Reference Range Interpretation Comments UA COLOR (test code = COLU) LIGHT YELLOW YELLOW UA APPEARANCE (test code = APPU) CLEAR CLEAR UA GLUCOSE DIPSTICK (test code = DGLUU) NORMAL mg/dL NEGATIVE UA BILIRUBIN DIPSTICK (test code = BILU) NEGATIVE mg/dL NEGATIVE UA KETONE DIPSTICK (test code = KETU) neg mg/dL NEGATIVE UA SPECIFIC GRAVITY (test code = SGU) 1.005 1.001-1.035 UA BLOOD DIPSTICK (test code = JOHNNIE) neg Terence/uL NEGATIVE UA PH DIPSTICK (test code = GERMAN) 7.0 5.0-8.0 UA PROTEIN DIPSTICK (test code = PROU) 15 (TRACE) mg/dL Neg-15 A UA UROBILINIOGEN DIPSTICK (test code = URO) norm mg/dL 0.0-0.2 UA NITRITE DIPSTICK (test code = CAROLYN) NEGATIVE NEGATIVE UA LEUKOCYTE ESTERASE DIPSTICK (test code = LEUU) 100/uL (2+) uL NE GATIVE A UA WBC (test code = WBCU) per HPF 0-5 Urine Source? Clean CatchB-TYPE NATRIURETIC [id number] 15:45:00* Test Item Value Reference Range Interpretation Comments B-TYPE NATRIURETIC PEPTIDE (test code = BNP) 15.1 pg/mL 0-100 N - XR CHEST 1 [id number] 15:43:00 Name: ENRIQUE BARRAGAN [facility] : 1950 Age/S:67 /F [address] [facility] Unit#:[id number] Loc: [place] [address] Phys: Kelley Mckeon MD Dis Date: PHONE #: [phone] Status: REG ER FAX #: [phone] Exam Date: 05/19/2018 Reason: CODE SEPSIS EXAMS: CPT CODE: [id number] XR CHEST 1 V [id number] REASON FOR EXAM: CODE SEPSIS EXAM ORDER DATE: 05/19/2018 2:57 PM Ordering M.D.: Kelley Mckeon MD PROCEDURE: - XR CHEST 1 V COMPARISON: 04/21/2017 FINDINGS: Portable AP frontal view of the chest obtained at 3:36 PM shows patchy airspace opacity of the lung bases. There is no evidence of effusion. The heart size is within normal limits. Pulmonary vasculatures are unremarkable. IMPRESSION: Patchy atelectasis of the bases superimposed on the chronic interstitial disease at 1549 Reported and signed by: Gaurav Granda M.D. CC: Kelley Mckeon MD; Severino Omer Technologist: Efrem FLOWERS, RT(R),CT Trnscrpt Data: 05/19/2018 ([id number]) t. FELICITY.RETAL Orig Print D/T: S: 05/19/2018 (3343) PAGE 1 Signed Report BASIC METABOLIC [id number] 15:39:00* Test Item Value Reference Range Interpretation Comments SODIUM (test code = NA) 137 mmol/L 135-148 N POTASSIUM (test code = K) 3.3 mmol/L 3.5-5.1 L CHLORIDE (test code = CL) 97 mmol/L 101-109 L CARBON DIOXIDE (test code = CO2) 26.1 mmol/L 21-32 N ANION GAP (test code = GAP) 17 mmol/L 10-20 N GLUCOSE (test code = GLU) 107 mg/dL 74-106 H BLOOD UREA NITROGEN (test code = BUN) 8 mg/dL 3-21 N GLOMERULAR FILTRATION RATE (test code = GFR) > 60 mL/min >=60 Estimated GFR by using Modified MDRD formula.Chronic kidney disease is defined as either kidney damageor GFR <60 mL/min/1.73 m2 for >3 months. CREATININE (test code = CREAT) 0.86 mg/dL 0.55-1.3 N BUN/CREATININE RATIO (test code = BUN/CREA) 9.3 10-20 L CALCIUM (test code = CA) 9.8 mg/dL 8.4-10.2 N HEPATIC FUNCTION [id number] 15:39:00* Test Item Value Reference Range Interpretation Comments TOTAL PROTEIN (test code = PROT) 9.3 g/dL 6.5-8.4 H ALBUMIN (test code = ALB) 3.9 g/dL 3.4-4.8 N GLOBULIN (test code = GLOB) 5.4 G/DL 1-10 N ALBUMIN/GLOBULIN RATIO (test code = A/G) 0.7 RATIO 0.75-1.50 L BILIRUBIN TOTAL (test code = BILT) 1.10 mg/dL 0.0-1.0 H BILIRUBIN DIRECT (test code = BILD) 0.50 mg/dL 0.0-0.30 H SGOT/AST (test code = AST) 53 U/L 6-32 H SGPT/ALT (test code = ALT) 37 U/L 12-78 N N ote: Change in REFERENCE RANGE due to new reagent method. ALKALINE PHOSPHATASE TOTAL (test code = ALKP) 100 U/L 38-126 N [id number] 15:39:00* Test Item Value Reference Range Interpretation Comments TROPONIN-I (test code = TROPI) <0.015 ng/mL 0.00-0.056 N LACTIC [id number] 15:28:00* Test Item Value Reference Range Interpretation Comments LACTIC ACID (test code = LACT) 2.8 MMOL/L 0.4-1.9 Results called to JUDITH by [email or web address] 05/19/18 1527Critical results verified and read back by Nurse? Y BASIC METABOLIC [id number] 15:28:00* Test Item Value Reference Range Interpretation Comments SODIUM (test code = NA) 137 mmol/L 135-148 N POTASSIUM (test code = K) 3.3 mmol/L 3.5-5.1 L CHLORIDE (test code = CL) 97 mmol/L 101-109 L CARBON DIOXIDE (test code = CO2) 26.1 mmol/L 21-32 N ANION GAP (test code = GAP) 17 mmol/L 10-20 N GLUCOSE (test code = GLU) 107 mg/dL 74-106 H BLOOD UREA NITROGEN (test code = BUN) 8 mg/dL 3-21 N GLOMERULAR FILTRATION RATE (test code = GFR) > 60 mL/min >=60 Estimated GFR by using Modified MDRD formula.Chronic kidney disease is defined as either kidney damageor GFR <60 mL/min/1.73 m2 for >3 months. CREATININE (test code = CREAT) 0.86 mg/dL 0.55-1.3 N BUN/CREATININE RATIO (test code = BUN/CREA) 9.3 10-20 L CALCIUM (test code = CA) 9.8 mg/dL 8.4-10.2 N HEPATIC FUNCTION [id number] 15:28:00* Test Item Value Reference Range Interpretation Comments TOTAL PROTEIN (test code = PROT) gram/dL 6.4-8.2 ALBUMIN (test code = ALB) g/dL 3.4-5.0 GLOBULIN (test code = GLOB) g/dL 2.7-4.2 ALBUMIN/GLOBULIN RATIO (test code = A/G) 0.75-1.50 BILIRUBIN TOTAL (test code = BILT) mg/dL 0.2-1.2 BILIRUBIN DIRECT (test code = BILD) mg/dL 0.0-0.20 SGOT/AST (test code = AST) IUnit/L 15-37 SGPT/ALT (test code = ALT) U/L 10-69 ALKALINE PHOSPHATASE TOTAL (test code = ALKP) IUnit/L 45-117 [id number] 15:28:00* Test Item Value Reference Range Interpretation Comments TROPONIN-I (test code = TROPI) ng/mL 0-0.045 CBC W/AUTO [id number] 15:20:00* Test Item Value Reference Range Interpretation Comments WHITE BLOOD CELL (test code = WBC) 8.8 K/mm3 4.5-12.5 N RED BLOOD CELL (test code = RBC) 4.93 mill/mm3 3.7-5.2 N HEMOGLOBIN (test code = HGB) 14.9 gram/dL 11.5-15.5 N HEMATOCRIT (test code = HCT) 44.6 % 36.0-46.0 N MEAN CELL VOLUME (test code = MCV) 90.5 fL 80-98 N MEAN CELL HGB (test code = MCH) 30.2 picogram 27.0-33.0 N MEAN CELL HGB CONCETRATION (test code = MCHC) 33.4 gram/dL 33.0-36. 0 N RED CELL DISTRIBUTION WIDTH (test code = RDW) 12.7 % 11.6-16. 2 N RED CELL DISTRIBUTION WIDTH SD (test code = RDW-SD) 41.4 fL 39 .1-52.0 N PLATELET COUNT (test code = PLT) 215 K/mm3 150-450 N MEAN PLATELET VOLUME (test code = MPV) 8.5 fL 6.7-11.0 N NEUTROPHIL % (test code = NT%) 75.2 % 39.0-69.0 H LYMPHOCYTE % (test code = LY%) 15.3 % 25.0-55.0 L MONOCYTE % (test code = MO%) 9.2 % 0.0-10.0 N EOSINOPHIL % (test code = EO%) 0.1 % 0.0-5.0 N BASOPHIL % (test code = BA%) 0.2 % 0.0-1.0 N NEUTROPHIL # (test code = NT#) 6.58 K/mm3 1.8-7.7 N LYMPHOCYTE # (test code = LY#) 1.34 K/mm3 1.0-5.0 N MONOCYTE # (test code = MO#) 0.81 K/mm3 0-0.8 H EOSINOPHIL # (test code = EO#) 0.01 K/mm3 0.0-0.5 N BASOPHIL # (test code = BA#) 0.02 K/mm3 0.0-0.2 N MANUAL DIFF REQUIRED (test code = MDIFF) NO URINALYSIS [id number] 13:55:00* Test Item Value Reference Range Interpretation Comments UA COLOR (test code = COLU) YELLOW YELLOW UA APPEARANCE (test code = APPU) cloudy CLEAR UA GLUCOSE DIPSTICK (test code = DGLUU) NORMAL mg/dL NEGATIVE UA BILIRUBIN DIPSTICK (test code = BILU) 1 mg/dL (1+) mg/dL NEGATIV E A UA KETONE DIPSTICK (test code = KETU) 5 (Trace) mg/dL NEGATIVE A UA SPECIFIC GRAVITY (test code = SGU) 1.025 1.001-1.035 UA BLOOD DIPSTICK (test code = JOHNNIE) 250 (4+) Terence/uL NEGATIVE A UA PH DIPSTICK (test code = GERMAN) 5.0 5.0-8.0 UA PROTEIN DIPSTICK (test code = PROU) 30 (1+) mg/dL Neg-15 A UA UROBILINIOGEN DIPSTICK (test code = URO) 1 mg/dL 0.0-0.2 A UA NITRITE DIPSTICK (test code = CAROLYN) NEGATIVE NEGATIVE UA LEUKOCYTE ESTERASE DIPSTICK (test code = LEUU) 100/uL (2+) uL NE GATIVE A UA WBC (test code = WBCU) 5-10 per HPF 0-5 A IN SOME URINARY TRACT INFECTIONS THERE MAY NOT BE ENOUGHWBCs IN THE URINE TO TRIGGER AN AUTOMATIC (REFLEX) URINECULTURE. A SEPERATE ORDER FOR URINE CULTURE IS RECOMMENDEDIF THERE IS STRONG SUPPORT FOR A URINARY TRACT INFECTIONCLINICALLY. UA RBC (test code = RBCU) >100 per HPF 0-5 UA EPITHELIAL CELLS (test code = EPIU) Few (2-5/hpf) per HPF Few UA BACTERIA (test code = BACU) FEW per HPF NONE UA MUCUS (test code = MUCU) MANY per LPF NONE-FEW A Urine Source? Clean CatchURINALYSIS [id number] 13:54:00* Test Item Value Reference Range Interpretation Comments UA COLOR (test code = COLU) YELLOW YELLOW UA APPEARANCE (test code = APPU) cloudy CLEAR UA GLUCOSE DIPSTICK (test code = DGLUU) NORMAL mg/dL NEGATIVE UA BILIRUBIN DIPSTICK (test code = BILU) 1 mg/dL (1+) mg/dL NEGATIV E A UA KETONE DIPSTICK (test code = KETU) 5 (Trace) mg/dL NEGATIVE A UA SPECIFIC GRAVITY (test code = SGU) 1.025 1.001-1.035 UA BLOOD DIPSTICK (test code = JOHNNIE) 250 (4+) Terence/uL NEGATIVE A UA PH DIPSTICK (test code = GERMAN) 5.0 5.0-8.0 UA PROTEIN DIPSTICK (test code = PROU) 30 (1+) mg/dL Neg-15 A UA UROBILINIOGEN DIPSTICK (test code = URO) 1 mg/dL 0.0-0.2 A UA NITRITE DIPSTICK (test code = CAROLYN) NEGATIVE NEGATIVE UA LEUKOCYTE ESTERASE DIPSTICK (test code = LEUU) 100/uL (2+) uL NE GATIVE A UA WBC (test code = WBCU) per HPF 0-5 Urine Source? Clean CatchBlood [id number] 11:11:00* Test Item Value Reference Range Interpretation Comments Blood Culture (test code = 89472667) NO GROWTH AFTER 5 DAYS, [facility]AL [facility]PORT [facility] [id number] 11:11:00* Test Item Value Reference Range Interpretation Comments Blood Culture (test code = 07705248) NO GROWTH AFTER 48 HOURS [facility] [id number] 06:57:00* Test Item Value Reference Range Interpretation Comments White Blood Count (test code = 6690-2) 5.44 4.8-10.8 [facility] [id number] 06:57:00* Test Item Value Reference Range Interpretation Comments Red Blood Count (test code = 789-8) 3.93 3.6-5.1 [facility]2018-06-13 06:57:00* Test Item Value Reference Range Interpretation Comments Hemoglobin (test code = 84788-2) 12.2 12.0-16.0 [facility]ematocrit2018-06-13 06:57:00* Test Item Value Reference Range Interpretation Comments Hematocrit (test code = 4544-3) 36.3 34.2-44.1 [facility] Corpuscular [id number] 06:57:00* Test Item Value Reference Range Interpretation Comments Mean Corpuscular Volume (test code = 787-2) 92.4 81-99 [facility] Corpuscular [id number] 06:57:00* Test Item Value Reference Range Interpretation Comments Mean Corpuscular Hemoglobin (test code = 785-6) 31.0 28-32 [facility] Corpuscular Hemoglobin Concent 2017-08-26 06:57:00* Test Item Value Reference Range Interpretation Comments Mean Corpuscular Hemoglobin Concent (test code = 786-4) 33.6 31-35 [facility] Cell Distribution [id number] 06:57:00* Test Item Value Reference Range Interpretation Comments Red Cell Distribution Width (test code = 21716-2) 12.7 11.7 -14.4 [facility]aPlatelet [id number] 06:57:00* Test Item Value Reference Range Interpretation Comments Platelet Count (test code = 777-3) 112 140-360 L [facility]aNeutrophils (%) (Auto)2017-08-26 06:57:00 * Test Item Value Reference Range Interpretation Comments Neutrophils (%) (Auto) (test code = 65823-6) 80.1 38.7-80.0 H [facility]aLymphocytes (%) (Auto)2017-08-26 06:57:00 * Test Item Value Reference Range Interpretation Comments Lymphocytes (%) (Auto) (test code = 736-9) 11.8 18.0-39.1 L [facility]ocytes (%) (Auto)2017-08-26 06:57:00* Test Item Value Reference Range Interpretation Comments Monocytes (%) (Auto) (test code = 5905-5) 7.7 4.4-11.3 [facility] (%) (Auto)2017-08-26 06:57:00 * Test Item Value Reference Range Interpretation Comments Eosinophils (%) (Auto) (test code = 713-8) 0.0 0.0-6.0 [facility] (%) (Auto)2017-08-26 06:57:00* Test Item Value Reference Range Interpretation Comments Basophils (%) (Auto) (test code = 706-2) 0.2 0.0-1.0 [facility]aIM GRANULOCYTES %2017-08-26 06:57:00* Test Item Value Reference Range Interpretation Comments IM GRANULOCYTES % (test code = IM GRANULOCYTES %) 0.2 0.0- 1.0 [facility]aNeutrophils # (Auto)2017-08-26 06:57:00* Test Item Value Reference Range Interpretation Comments Neutrophils # (Auto) (test code = 751-8) 4.4 2.1-6.9 [facility]aLymphocytes # (Auto)2017-08-26 06:57:00* Test Item Value Reference Range Interpretation Comments Lymphocytes # (Auto) (test code = 19761-4) 0.6 1.0-3.2 L [facility]ocytes # (Auto)2017-08-26 06:57:00* Test Item Value Reference Range Interpretation Comments Monocytes # (Auto) (test code = 742-7) 0.4 0.2-0.8 [facility]osin[facility] # (Auto)2017-08-26 06:57:00* Test Item Value Reference Range Interpretation Comments Eosinophils # (Auto) (test code = 711-2) 0.0 0.0-0.4 [facility] # (Auto)2017-08-26 06:57:00* Test Item Value Reference Range Interpretation Comments Basophils # (Auto) (test code = 704-7) 0.0 0.0-0.1 [facility]aAbsolute Immature Granulocyte (auto 2017-08-26 06:57:00* Test Item Value Reference Range Interpretation Comments Absolute Immature Granulocyte (auto (gwendolyn t code = Absolute Immature Granulocyte (auto) 0.01 0-0.1 [facility] Blood [id number] 06:57:00* Test Item Value Reference Range Interpretation Comments White Blood Count (test code = 6690-2) 5.44 4.8-10.8 [facility] Blood [id number] 06:57:00* Test Item Value Reference Range Interpretation Comments Red Blood Count (test code = 789-8) 3.93 3.6-5.1 [facility]emoglobin2018-06-13 06:57:00* Test Item Value Reference Range Interpretation Comments Hemoglobin (test code = 91332-0) 12.2 12.0-16.0 [facility]ematocrit2018-06-13 06:57:00* Test Item Value Reference Range Interpretation Comments Hematocrit (test code = 4544-3) 36.3 34.2-44.1 [facility] Corpuscular [id number] 06:57:00* Test Item Value Reference Range Interpretation Comments Mean Corpuscular Volume (test code = 787-2) 92.4 81-99 [facility] Corpuscular [id number] 06:57:00* Test Item Value Reference Range Interpretation Comments Mean Corpuscular Hemoglobin (test code = 785-6) 31.0 28-32 [facility] Corpuscular Hemoglobin Concent 2017-08-26 06:57:00* Test Item Value Reference Range Interpretation Comments Mean Corpuscular Hemoglobin Concent (test code = 786-4) 33.6 31-35 [facility]aRed Cell Distribution [id number] 06:57:00* Test Item Value Reference Range Interpretation Comments Red Cell Distribution Width (test code = 65611-9) 12.7 11.7 -14.4 [facility]atelet [id number] 06:57:00* Test Item Value Reference Range Interpretation Comments Platelet Count (test code = 777-3) 112 140-360 L [facility]aNeutrophils (%) (Auto)2017-08-26 06:57:00 * Test Item Value Reference Range Interpretation Comments Neutrophils (%) (Auto) (test code = 20464-5) 80.1 38.7-80.0 H [facility]aLymphocytes (%) (Auto)2017-08-26 06:57:00 * Test Item Value Reference Range Interpretation Comments Lymphocytes (%) (Auto) (test code = 736-9) 11.8 18.0-39.1 L [facility]ocytes (%) (Auto)2017-08-26 06:57:00* Test Item Value Reference Range Interpretation Comments Monocytes (%) (Auto) (test code = 5905-5) 7.7 4.4-11.3 [facility]osinophils (%) (Auto)2017-08-26 06:57:00 * Test Item Value Reference Range Interpretation Comments Eosinophils (%) (Auto) (test code = 713-8) 0.0 0.0-6.0 [facility] (Auto)2017-08-26 06:57:00* Test Item Value Reference Range Interpretation Comments Basophils (%) (Auto) (test code = 706-2) 0.2 0.0-1.0 [facility]TES %2017-08-26 06:57:00* Test Item Value Reference Range Interpretation Comments IM GRANULOCYTES % (test code = IM GRANULOCYTES %) 0.2 0.0- 1.0 [facility]Neutrophils # (Auto)2017-08-26 06:57:00* Test Item Value Reference Range Interpretation Comments Neutrophils # (Auto) (test code = 751-8) 4.4 2.1-6.9 [facility] # (Auto)2017-08-26 06:57:00* Test Item Value Reference Range Interpretation Comments Lymphocytes # (Auto) (test code = 75713-2) 0.6 1.0-3.2 [facility] # (Auto)2017-08-26 06:57:00* Test Item Value Reference Range Interpretation Comments Monocytes # (Auto) (test code = 742-7) 0.4 0.2-0.8 [facility] # (Auto)2017-08-26 06:57:00* Test Item Value Reference Range Interpretation Comments Eosinophils # (Auto) (test code = 711-2) 0.0 0.0-0.4 [facility] # (Auto)2017-08-26 06:57:00* Test Item Value Reference Range Interpretation Comments Basophils # (Auto) (test code = 704-7) 0.0 0.0-0.1 [facility]aAbsolute Immature Granulocyte (auto 2017-08-26 06:57:00* Test Item Value Reference Range Interpretation Comments Absolute Immature Granulocyte (auto (gwendolyn t code = Absolute Immature Granulocyte (auto) 0.01 0-0.1 [facility] [id number] 06:50:00* Test Item Value Reference Range Interpretation Comments Sodium Level (test code = 2951-2) 139 136-145 [facility]aPotassium [id number] 06:50:00* Test Item Value Reference Range Interpretation Comments Potassium Level (test code = 2823-3) 4.2 3.5-5.1 [facility]Chloride [id number] 06:50:00* Test Item Value Reference Range Interpretation Comments Chloride Level (test code = 2075-0) 108 98-107 H [facility]aCarbon Dioxide [id number] 06:50:00* Test Item Value Reference Range Interpretation Comments Carbon Dioxide Level (test code = 2028-9) 24 22-29 [facility]aAnion [id number] 06:50:00* Test Item Value Reference Range Interpretation Comments Anion Gap (test code = 72887-8) 11.2 8-16 [facility]aBlood Urea [id number] 06:50:00* Test Item Value Reference Range Interpretation Comments Blood Urea Nitrogen (test code = 3094-0) 10 7-26 [facility]aCreatinine2018-06-13 06:50:00* Test Item Value Reference Range Interpretation Comments Creatinine (test code = 2160-0) 0.65 0.57-1.11 [facility] Gljkk6705-95-89 06:50:00* Test Item Value Reference Range Interpretation Comments BUN/Creatinine Ratio (test code = 3097-3) 15 6-25 [facility]aEstimat Glomerular Filtration Rate 2017-08-26 06:50:00* Test Item Value Reference Range Interpretation Comments Estimat Glomerular Filtration Rate (test code = 75822-8) 60- >60 Ranges were taken from the National Kidney Disease Education Program and the [facility] Kidney Foundation literature.Reference ranges:60 or greater: Ziakos92-16 ( for 3 consecutive months): Chronic kidney disease 15 or less: Kid[facility] failureMethod[facility]aGlucose Iwsbu7451-09-47 06:50:00* Test Item Value Reference Range Interpretation Comments Glucose Level (test code = VLO9300) 97 74-118 [facility]aCalcium Inboc0555-28-60 06:50:00* Test Item Value Reference Range Interpretation Comments Calcium Level (test code = 49454-3) 9.3 8.4-10.2 [facility] Jtpua7818-60-52 06:50:00* Test Item Value Reference Range Interpretation Comments Sodium Level (test code = 2951-2) 139 136-145 [facility]aPotassium Jllny2032-20-95 06:50:00* Test Item Value Reference Range Interpretation Comments Potassium Level (test code = 2823-3) 4.2 3.5-5.1 [facility]aChloride Bmtrc6915-85-26 06:50:00* Test Item Value Reference Range Interpretation Comments Chloride Level (test code = 2075-0) 108 98-107 H [facility]aCarbon Dioxide Iynmu7292-45-36 06:50:00* Test Item Value Reference Range Interpretation Comments Carbon Dioxide Level (test code = 2028-9) 24 22-29 [facility]aAnion Ajo6674-46-90 06:50:00* Test Item Value Reference Range Interpretation Comments Anion Gap (test code = 78091-3) 11.2 8-16 [facility]aBlood Urea Jtlfjufb7826-02-49 06:50:00* Test Item Value Reference Range Interpretation Comments Blood Urea Nitrogen (test code = 3094-0) 10 7-26 [facility]aCreatinine2018-06-13 06:50:00* Test Item Value Reference Range Interpretation Comments Creatinine (test code = 2160-0) 0.65 0.57-1.11 [facility]/Creatinine Ciptm2376-69-92 06:50:00* Test Item Value Reference Range Interpretation Comments BUN/Creatinine Ratio (test code = 3097-3) 15 09-07 [facility]aEstimat Glomerular Filtration Rate 2017-08-26 06:50:00* Test Item Value Reference Range Interpretation Comments Estimat Glomerular Filtration Rate (test code = 715940880) > 60 >60 Ranges were taken from the National Kidney Disease Education Program and the [facility] literature.Reference ranges:60 or greater: Bmhqju80-87 ( for 3 consecutive months): Chronic kidney disease 15 or less: Kidney failureMethod[facility]cosaGlucose Doovr7287-81-94 06:50:00* Test Item Value Reference Range Interpretation Comments Glucose Level (test code = XHV5472) 97 74-118 [facility]aCalcium Ibgzh5892-98-29 06:50:00* Test Item Value Reference Range Interpretation Comments Calcium Level (test code = 56400-3) 9.3 8.4-10.2 [facility]aCHEST SINGLE (PORTABLE)2017-08-26 06:29:00 [facility] [address] [place] [address] Patient Name: ENRIQUE BARRAGAN MR #: [id number] : 1950 Age/Sex: 67/F Req #: [id number] Adm Physician: ANDREA DOW MD Ordered by: EVA PEARL MD Report #: [id number] Location: [facility] Room/Bed: [place] [address] Procedure: [id number] DX/C HEST SINGLE (PORTABLE) Exam Date: 08/26/17 Exam Time : 0545 REPORT STATUS: Signed EXAM: CHEST SINGLE (PORTABLE), AP 1 view INDICATION: Pneumonia COMPARISON: AP view of the chest August 25, 2017 FIN DINGS: LINES/TUBES: None LUNGS: Stable bilateral reticulonodular changes. PLEURA: No effusions or pneumothorax. HEART AND MEDIASTINUM: Normal size and contour. BONES AND SOFT TISSUES: No acute findings. IMPRESSI ON: Stable appearance of the chest. Findings suspicious for multifocal atypica l pneumonia. Signed by: Dr. Radha Warren M.D. on 08/26/2017 6: 30 AM Dictated By: RADHA WARREN MD 9 Transcribed By: SUSI on 08/26/17629 COPY TO: EVA PEARL MD CT CHEST [id number] 19:10:00 [place] [address] Patient Name: ENRIQUE BARRAGAN MR #: [id number] : 1950 Age/Sex: 67/F Req #: [id number] Adm Physician: ANDREA DOW MD Ordered by: SAEID BOBO MD Report #: [id number] Location: [facility] Room/Bed: [place] [address] Procedure: [id number] CT/CT CH EST WO Exam Date: 08/25/17 Exam Time: 1758 REP ORT STATUS: Signed PROCEDURE: CT CHEST WITHOUT CONTRAST CT scan of the ches t WITHOUT intravenous contrast, using high-resolution protocol. TECHNIQ UE: The chest was scanned utilizing a multidetector helical scanner from th e apex to the level of the adrenal glands. No IV contrast was administered p er protocol. High-resolution inspiratory, expiratory and prone images were pe rformed. Coronal and sagittal multiplanar reformations were obtained. C OMPARISON: [facility], CT, CT CHEST WO, 06/20/2016, 7:19. PRESLEY CATIONS: PULMONARY FIBROSIS FINDINGS: Lines/tubes: None. Leanne ngs and Airways: No significant interval change in bilateral subpleural retic ulation, honeycombing, and traction bronchiectasis, predominantly involving t he lower lobes compared to the upper lobes. Stable volume loss in bilateral l ower lobes, with posterior retraction of the major fissures. No significant areas of air trapping are noted in the expiratory images. Prone images harish wed no reversible atelectasis. No consolidation or masses. Airways are clear , without endobronchial lesions. Pleura: The pleural spaces are clear. No effusion, or pneumothorax. Heart and mediastinum: Thyroid is unremarkable . Heart size is normal. No pericardial effusion. Atherosclerotic calcificatio n of the coronary arteries, aortic valve and thoracic aorta. Aorta is non-ane urysmal. Main pulmonary artery measures approximately 2.4 cm, normal. L ymph nodes: Stable borderline to mildly enlarged right upper paratracheal lym ph nodes (series 3, image 44 and 46), which measure approximately 1.0 cm in s hort axis. Stable mildly enlarged right lower paratracheal lymph node, measuri ng 1.0 cm in short axis (series 3, image 50). Abdomen: Limited views of the upper abdomen show no abnormality within the visualized liver, spleen, pancr eas, or kidneys. The adrenal glands are normal. Bones: No aggressive ly tic lesions. Soft tissues are unremarkable. IMPRESSION: 1. no signi ficant interval change in pulmonary fibrotic changes, with pattern suggesting UIP. 2. Stable mediastinal adenopathy, likely reactive. Merlin Estrella M.D. Dictated by: Rico Estrella M.D. on 08/25/2017 at 1 9:10 Electronically approved by: Rico Estrella M.D. on 08/25/2017 at 19:10 Dictated By: RICO ESTRELLA MD 09 Transcribed By: MATHEW on 08/25/171909 COPY TO: SAEID BOBO MD B-Type Natriuretic Tcklvtj2019-71-97 11:42:00* Test Item Value Reference Range Interpretation Comments B-Type Natriuretic Peptide (test code = 67250-2) 14.0 0-100 [facility]aB-Type Natriuretic Iughxux6199-97-90 11:42:00* Test Item Value Reference Range Interpretation Comments B-Type Natriuretic Peptide (test code = 97169-3) 14.0 0-100 [facility]aTotal Hdwnvusxm6457-39-30 11:40:00* Test Item Value Reference Range Interpretation Comments Total Bilirubin (test code = 1975-2) 0.5 0.2-1.2 [facility]aAspartate Amino Transf (AST/SGOT) 2017-08-25 11:40:00* Test Item Value Reference Range Interpretation Comments Aspartate Amino Transf (AST/SGOT) (test code = Aspartate Amino Transf (AST/SGOT)) 33 5-34 [facility]aAlanine Aminotransferase (ALT/SGPT) 2017-08-25 11:40:00* Test Item Value Reference Range Interpretation Comments Alanine Aminotransferase (ALT/SGPT) (test code = 1742-6) 17 0-55 [facility]aTotal Dunkmlt8249-40-90 11:40:00* Test Item Value Reference Range Interpretation Comments Total Protein (test code = 2885-2) 8.1 6.5-8.1 [facility]aAlbumin2018-06-12 11:40:00* Test Item Value Reference Range Interpretation Comments Albumin (test code = 1751-7) 4.2 3.5-5.0 [facility]aGlobulin2018-06-12 11:40:00* Test Item Value Reference Range Interpretation Comments Globulin (test code = 90377-2) 3.9 2.3-3.5 H [facility]aAlbumin/Globulin Edvko0637-52-43 11:40:00 * Test Item Value Reference Range Interpretation Comments Albumin/Globulin Ratio (test code = 1759-0) 1.1 0.8-2.0 [facility]aAlkaline Eakgpwgitgh1869-77-25 11:40:00* Test Item Value Reference Range Interpretation Comments Alkaline Phosphatase (test code = 6768-6) 68 40-150 [facility]aCreatine Zcmdsj4549-46-06 11:40:00* Test Item Value Reference Range Interpretation Comments Creatine Kinase (test code = 2157-6) 23 29-168 L [facility]aCreatine Kinase [id number] 11:40:00* Test Item Value Reference Range Interpretation Comments Creatine Kinase MB (test code = 30864-5) 0.70 0-5.0 [facility]aTroponin X5767-04-85 11:40:00* Test Item Value Reference Range Interpretation Comments Troponin I (test code = UTK6866) -0.001 0-0.300 [facility]aTotal Eygudzrmw5819-69-02 11:40:00* Test Item Value Reference Range Interpretation Comments Total Bilirubin (test code = 1975-2) 0.5 0.2-1.2 [facility]aAspartate Amino Transf (AST/SGOT) 2017-08-25 11:40:00* Test Item Value Reference Range Interpretation Comments Aspartate Amino Transf (AST/SGOT) (test code = Aspartate Amino Transf (AST/SGOT)) 33 5-34 [facility]aAlanine Aminotransferase (ALT/SGPT) 2017-08-25 11:40:00* Test Item Value Reference Range Interpretation Comments Alanine Aminotransferase (ALT/SGPT) (test code = 1742-6) 17 0-55 [facility]aTotal Hothfwg9600-84-15 11:40:00* Test Item Value Reference Range Interpretation Comments Total Protein (test code = 2885-2) 8.1 6.5-8.1 [facility]aAlbumin2018-06-12 11:40:00* Test Item Value Reference Range Interpretation Comments Albumin (test code = 1751-7) 4.2 3.5-5.0 [facility]aGlobulin2018-06-12 11:40:00* Test Item Value Reference Range Interpretation Comments Globulin (test code = 27705-9) 3.9 2.3-3.5 H [facility]aAlbumin/Globulin Chfge7064-48-22 11:40:00 * Test Item Value Reference Range Interpretation Comments Albumin/Globulin Ratio (test code = 1759-0) 1.1 0.8-2.0 [facility]aAlkaline Cxgkwxhouno6124-89-40 11:40:00* Test Item Value Reference Range Interpretation Comments Alkaline Phosphatase (test code = 6768-6) 68 40-150 [facility]aCreatine Rglroo5373-63-85 11:40:00* Test Item Value Reference Range Interpretation Comments Creatine Kinase (test code = 2157-6) 23 29-168 L [facility]aCreatine Kinase [id number] 11:40:00* Test Item Value Reference Range Interpretation Comments Creatine Kinase MB (test code = 79697-0) 0.70 0-5.0 [facility]aTroponin [id number] 11:40:00* Test Item Value Reference Range Interpretation Comments Troponin I (test code = USS1776) < 0.001 0-0.300 [facility]2017-08-25 11:14:00 [facility] [address] [place] [address] Patient Name: ENRIQUE BARRAGAN MR #: [id number] : 1950 Age/Sex: 67/F Req #: [id number] Adm Physician: Ordered by: EVA PEARL MD Report #: [id number] Location: ER Room/Bed: Procedure: DX/CHEST SINGLE (PORTABLE) Exa m Date: 08/25/17 Exam Time: 1030 REPORT STATUS: Signed PROCEDURE: CHEST SINGLE (PORTABLE) COMPARISON: Patients [facility] ter, DX, CHEST SINGLE (PORTABLE), 06/19/2016, 18:35. INDICATIONS: COUGH, HARISH RTNESS OF BREATH FINDINGS: LUNGS: Prominent interstitial markings are unchanged and reflective of chronic findings. PLEURA: No effusio ns or pneumothorax. HEART T MEDIASTINUM: The heart is within normal s ize-limits. BONES T SOFT TISSUES: No acute findings. CONCLU RACHAEL: No acute thoracic abnormality. Néstor Preciado D.O. Dictated by: Néstor Preciado D.O. on 08/25/2017 at 11:14 Electronically a pproved by: Néstor Precidao D.O. on 08/25/2017 at 11:14 Dictate d By: NÉSTOR PRECIADO DO 1 114 Transcribed By: MATHEW on 08/25/17 1114 COPY TO: EVA PEARL MD
[2019-12-28] MEDS ORDERED: IOPAMIDOL 370 MG/ML 200 ML INFUS..BTL INJ ONE (17:37)
[2019-12-28] MEDS ORDERED: SODIUM CHLORIDE 0.9% 50ML 50 ML ONE (17:37)
--- NOTE | 2019-12-28 18:21 | Diagnostic Imaging Report ---
EXAM: CT Chest WITH contrast (PE Protocol) INDICATION: Shortness of breath. Tachycardia. Pulmonary embolism. COMPARISON: Chest radiograph 12/28/2019 TECHNIQUE: Chest was scanned utilizing a multidetector helical scanner from the lung apex through the level of the diaphragm after administration of IV contrast. Thin section reconstructions were obtained with special concentration on the pulmonary arteries. Coronal and sagittal reformations were obtained. Pulmonary embolism protocol was performed. IV CONTRAST: 75 mL of Isovue-370 COMPLICATIONS: None RADIATION DOSE: Total DLP: 146 mGy*cm Estimated effective dose: (DLP x 0.014 x size factor) mSv CTDIvol has been reviewed. It is below the limits set by the Radiation Protocol Committee (RPC). Dose modulation, iterative reconstruction, and/or weight based adjustment of the mA/kV was utilized to reduce the radiation dose to as low as reasonably achievable. FINDINGS: LINES/ TUBES: None. LUNGS AND AIRWAYS: No filling defect is identified within the pulmonary arteries to the segmental level. Chronic appearing change in the lungs with what appear to be regions of scarring and fibrosis most pronounced in the lower lobes and at the periphery. Additionally, there are scattered patchy groundglass densities in the lungs which could be due to early multifocal pneumonia in the appropriate clinical context. Regions of bronchiectasis most pronounced in the posterior lower lobes. PLEURA: The pleural spaces are clear. HEART AND MEDIASTINUM: The thyroid gland is normal. No mediastinal, hilar or axillary lymphadenopathy. The heart is normal in size. There is no pericardial effusion. . Main pulmonary artery measures 2.2 cm in diameter and the ascending aorta measures 2.8 cm. Scattered vascular calcification. UPPER ABDOMEN: Unremarkable BONES: The visualized bony thorax is within normal limits. SOFT TISSUES: Unremarkable. IMPRESSION: No pulmonary emboli. Chronic appearing change in the lungs with what appear to be regions of scarring and fibrosis most pronounced in the lower lobes and at the periphery. Additionally, there are scattered patchy groundglass densities in the lungs which could be due to early multifocal pneumonia in the appropriate clinical context. Regions of bronchiectasis most pronounced in the posterior lower lobes. Pulmonary consultation recommended. Signed by: Dr. Dewayne Cabral M.D. on 12/28/2019 6:18 PM
--- NOTE | 2019-12-28 18:38 | NUR ---
covid swab done per er md arambula.
--- NOTE | 2019-12-28 19:01 | Emergency Department Note ---
History of Present Illnes History of Present Illness Chief Complaint: Genitourinary History of Present Illness This is a 69 year old female with cc of 10 days of "smelly" urination. No dysuria or hematuria. No flank pain. No fever or chills. States her brother yesterday and feels very "stressed". Has chronic tachycardia, but not sure her baseline rate. No CP. Took her steroid inhaler today, but not albuterol. Historian: Patient, Family Member Arrival Mode: Car Onset (how long ago): week(s) (1.5) Severity: unable to specify Onset quality: unable to specify Duration (how long): week(s) (1.5) Progression: unchanged Past Medical/Family History Physician Review I have reviewed the patient's past medical and family history. Any updates have been documented here. Past Medical History Recent Fever: No Clinical Suspicion of Infectio: Yes New/Unexplained Change in Ment: No Past Medical History: Hypertension, COPD, UTI's, Hyperlipedemia Other Medical History: scleroderma raynauds chronic hand pain pulmonary fibrosis arthritis Past Surgical History: Hip Replacement Other Surgery: bilateral carpal tunnel, bone spurs bilateral feet Social History Smoking Cessation: Unknown if ever smoked Counseling Performed: No Alcohol Use: None Any Illegal Drug Use: No Other Last Tetanus: unk Any Pre-Existing Lines (PICC,: No Review of Systems Review of Systems Constitutional: Denies chills, Denies fever EENTM: Denies nose congestion, Denies throat pain Cardiovascular: Denies chest pain Respiratory: Reports dyspnea, Reports other (Admits to SOB and states it feels like a typical COPD episode. Can to ER for urine symptoms not for SOB. Has COPD and has chronic intermittent episodes. Current episode started yesterday.); Denies cough Gastrointestinal: Denies abdominal pain, Denies constipation, Denies diarrhea, Denies nausea, Denies vomiting Genitourinary: Reports as per HPI, Reports other (Smelly Urine); Denies dysuria Integumentary: Denies rash Neurological: Denies headache Psychological: Reports anxiety Endocrine: Reports increased thirst; Denies excessive sweating Hematological/Lymphatic: Denies easy bleeding, Denies easy bruising Physical Exam Related Data Allergies: Coded Allergies: No Known Drug Allergies (Verified Allergy, Mild, 08/25/17) Triage Vital Signs Vital Signs Date Time Temp Pulse Resp B/P (MAP) Pulse Ox O2 Delivery O2 Flow Rate FiO2 12/28/19 14:20 97.8 122 28 143/71 95 Room Air 12/28/19 14:57 3.0 Physical Exam CONSTITUTIONAL Constitutional: Present well-developed, Present well-nourished, Present other (patient pausing between sentences. Once placed in bed and calmed down completed full sentences with no respiratroy distress. No accessory muscle use. No retractions.) HENT HENT: Present normocephalic, Present atraumatic, Present mucosae dry, Present nose normal HENT L/R: Present left ext ear normal, Present right ext ear normal EYES Eyes: Reports PERRL, Reports conjunctivae normal NECK Neck: Present ROM normal PULMONARY Pulmonary: Present effort normal, Present breath sounds normal; Absent chest tenderness CARDIOVASCULAR Cardiovascular: Present regular rhythm, Present heart sounds normal, Present capillary refill normal, Present tachycardia GASTROINTESTINAL Abdominal: Present soft, Present nontender, Present bowel sounds normal GENITOURINARY Genitourinary: Present exam deferred; Absent vaginal discharge (External exam) SKIN Skin: Present warm, Present dry MUSCULOSKELETAL Musculoskeletal: Present ROM normal NEUROLOGICAL Neurological: Present alert, Present oriented x 3, Present no gross motor or sensory deficits PSYCHOLOGICAL Psychological: Present mood/affect normal, Present judgement normal Results Laboratory Laboratory comments Na 146, K 3.9, CO2 28 Cl 101, Glu 132, BUN 11, Cr 1.1, WBC 7.5, HGB 16.2, HCT 48.5, PLT 239, troponin neg, UA: Glu, Ernesto, Ket, nit, gerardo neg. SG > 1.030, blood trace Imaging Imaging Comments Chest, 1 view, 12/28/2019. History: Shortness of breath. Comparison: 04/26/2019. Findings: The cardiomediastinal silhouette and pulmonary vasculature are within normal limits for a portable exam. There is no focal consolidation or pleural effusion. Bibasilar interstitial prominence is unchanged. There are no acute osseous or soft tissue abnormalities. Impression: No acute cardiopulmonary abnormality. Signed by: Yazmin Rahman on 12/28/2019 3:37 PM Dictated By: YAZMIN RAHMAN MD 1537 Transcribed By: SUSI on 12/28/19 153 EXAM: CT Chest WITH contrast (PE Protocol) INDICATION: Shortness of breath. Tachycardia. Pulmonary embolism. COMPARISON: Chest radiograph 12/28/2019 TECHNIQUE: Chest was scanned utilizing a multidetector helical scanner from the lung apex through the level of the diaphragm after administration of IV contrast. Thin section reconstructions were obtained with special concentration on the pulmonary arteries. Coronal and sagittal reformations were obtained. Pulmonary embolism protocol was performed. IV CONTRAST: 75 mL of Isovue-370 COMPLICATIONS: None RADIATION DOSE: Total DLP: 146 mGy*cm Estimated effective dose: (DLP x 0.014 x size factor) mSv CTDIvol has been reviewed. It is below the limits set by the Radiation Protocol Committee (RPC). Dose modulation, iterative reconstruction, and/or weight based adjustment of the mA/kV was utilized to reduce the radiation dose to as low as reasonably achievable. FINDINGS: LINES/ TUBES: None. LUNGS AND AIRWAYS: No filling defect is identified within the pulmonary arteries to the segmental level. Chronic appearing change in the lungs with what appear to be regions of scarring and fibrosis most pronounced in the lower lobes and at the periphery. Additionally, there are scattered patchy groundglass densities in the lungs which could be due to early multifocal pneumonia in the appropriate clinical context. Regions of bronchiectasis most pronounced in the posterior lower lobes. PLEURA: The pleural spaces are clear. HEART AND MEDIASTINUM: The thyroid gland is normal. No mediastinal, hilar or axillary lymphadenopathy. The heart is normal in size. There is no pericardial effusion. . Main pulmonary artery measures 2.2 cm in diameter and the ascending aorta measures 2.8 cm. Scattered vascular calcification. UPPER ABDOMEN: Unremarkable BONES: The visualized bony thorax is within normal limits. SOFT TISSUES: Unremarkable. IMPRESSION: No pulmonary emboli. Chronic appearing change in the lungs with what appear to be regions of scarring and fibrosis most pronounced in the lower lobes and at the periphery. Additionally, there are scattered patchy groundglass densities in the lungs which could be due to early multifocal pneumonia in the appropriate clinical context. Regions of bronchiectasis most pronounced in the posterior lower lobes. Pulmonary consultation recommended. Signed by: Dr. Dewayne Cabral M.D. on 12/28/2019 6:18 PM Dictated By: DEWAYNE CABRAL MD, MD 17 Transcribed By: SUSI on 10/14/20 1818 Procedures 12 Lead ECG Interpretation ECG Interpretation : ECG: ECG 1 Date: Dec 28, 2019 Prior ECG tracings: reviewed Rhythm: sinus tachycardia Rate: tachycardia QRS axis: normal ST segments normal: Yes T waves normal: Yes Clinical Impression: abnormal ECG Assessment & Plan Medical Decision Making MDM Patient with SOB and tachycardia, worked up for PE which was negative. SOB resolved with albuterol MDI. CT showed ground glass appearance with pneumonia as possible cause. Will Check COVID and D/C with Zithromax. Assessment & Plan Final Impression: (1) Pneumonia (2) COPD (chronic obstructive pulmonary disease) (3) COPD with acute exacerbation Depart Disposition: HOME, SELF-CARE Last Vital Signs Date Time Temp Pulse Resp B/P (MAP) Pulse Ox O2 Delivery O2 Flow Rate FiO2 12/28/19 14:57 112 22 167/77 100 Nasal Cannula 3.0 12/28/19 14:20 97.8 Home Meds Reported Medications Clonazepam (CLONAZEPAM) 0.5 Mg Tablet 12/28/19 Trazodone Hcl (TRAZODONE HCL) 100 Mg Tablet 12/28/19 Umeclidinium Brm/Vilanterol Tr (Anoro Ellipta 62.5-25 Mcg INH) 1 Each Blst.w.dev, 1 INH IH DAILY 04/25/19 Tapentadol Hcl (NUCYNTA) 75 Mg Tablet, 1 TAB PO Q8H PRN for MODERATE PAIN (4-6) 04/25/19 Trazodone Hcl (TRAZODONE HCL) 50 Mg Tablet, 150 MG PO HS, #30 TAB 06/19/16 Albuterol Sulfate (VENTOLIN HFA) 18 Gm Hfa.aer.ad, 2 INH INH Q4HR PRN for SHORTNESS OF BREATH 06/19/16 Medications in the ED Albuterol 2 gm ONCE ONCE INH Last administered on 12/28/19at 14:56; Admin Dose 2 GM; Start 12/28/19 at 14:45; Stop 12/28/19 at 14:55; Status DC Albuterol 8 gm STK-MED ONCE INH ; Start 12/28/19 at 15:02; Stop 12/28/19 at 14:56; Status DC EVA CAMPBELL MD Dec 28, 2019 15:39
--- NOTE | 2019-12-30 14:04 | NUR ---
Pt given negative covid test results.
== END 2019-12-28 18:50 | disposition home or self-care (01) ==
LOC: FSED 14:42
DX: J18.9 Pneumonia, unspecified organism (principal); J44.1 Chronic obstructive pulmonary disease with (acute) exacerbation; R06.02 Shortness of breath; R73.9 Hyperglycemia, unspecified; R94.31 Abnormal electrocardiogram [ECG] [EKG]; I10 Essential (primary) hypertension; E78.5 Hyperlipidemia, unspecified; I73.00 Raynaud's syndrome without gangrene; Z11.59 Encounter for screening for other viral diseases
CPT/HCPCS: 51700; 71045; 71260; 80053; 81003; 84484; 85025; 93005; 99285; J7040; Q9967; U0002

== ENCOUNTER 2020-06-18 18:10 | Emergency (ER) | payer MEDICARE, OTHER ==
[~2020-06-18] VITALS: Ht 162.6 cm; Wt 48.5 kg
[~2020-06-18 18:10] MED LIST changes: +CLONAZEPAM0.5 MG; +TRAZODONE HCL100 MG
[2020-06-18] MEDS ORDERED: DOXYCYCLINE HY100 MG PO (18:45)
[2020-06-18] MEDS ORDERED: ALBUTEROL/IPRATROPIUM 3 ML NEB NEB ONE (20:00)
[2020-06-18] MEDS ORDERED: SODIUM CHLORIDE 0.9% 500ML 500 ML IV ONE (20:00)
[2020-06-18] MEDS ORDERED: SODIUM CHLORIDE 0.9% 500ML 500 ML ONE (20:47)
[2020-06-18] MEDS ORDERED: ALBUTEROL/IPRATROPIUM 3 ML NEB ONE (20:47)
[2020-06-18] MEDS ORDERED: AZITHROMYCIN 500MG/NS 250 ML 250 ML IV ONE (21:00)
[2020-06-18] MEDS ORDERED: METHYLPREDNISOLONE SOD SUCC 125 MG/2ML VIAL IV ONE (21:00)
[2020-06-18] MEDS ORDERED: CEFTRIAXONE SOD 1 GM in DEXTROSE 5% 50ML 50 ML IV ONE (21:00)
[2020-06-18] MEDS ORDERED: CEFTRIAXONE SOD 1 GM/50 ML BAG IV ONE (21:00)
[2020-06-18] MEDS ORDERED: CEFTRIAXONE SOD 1 GM 50 ML IV ONE (21:13)
[2020-06-18] MEDS ORDERED: AZITHROMYCIN 250 MG TAB ONE (21:13)
[2020-06-18] MEDS ORDERED: METHYLPREDNISOLONE SOD SUCC 125 MG/2ML VIAL ONE (21:13)
[2020-06-18] MEDS ORDERED: AZITHROMYCIN 250 MG TAB PO ONE (21:15)
[2020-06-18] MEDS ORDERED: PREDNISONE20 MG PO (21:35)
[2020-06-18] MEDS ORDERED: CEFDINIR300 MG PO (21:36)
[2020-06-18] MEDS ORDERED: TRAZODONE HCL100 MG PO (21:37)
[2020-06-18] MEDS ORDERED: AZITHROMYCIN250 MG PO (21:37)
== END 2020-06-18 21:58 | disposition home or self-care (01) ==
LOC: FSED 18:37
DX: R06.02 Shortness of breath (principal); J18.9 Pneumonia, unspecified organism; J44.1 Chronic obstructive pulmonary disease with (acute) exacerbation; I27.20 Pulmonary hypertension, unspecified; M34.9 Systemic sclerosis, unspecified; L71.9 Rosacea, unspecified; G47.00 Insomnia, unspecified; Z20.822 Contact with and (suspected) exposure to COVID-19
CPT/HCPCS: 71046; 80053; 81003; 82553; 83880; 84484; 85025; 85379; 93005; 99284; J0696; J2930; J7040; U0002

== ENCOUNTER 2021-03-28 13:29 | Inpatient (IN) | payer MEDICARE, OTHER ==
[~2021-03-28] VITALS: Ht 160 cm; Wt 56.7 kg
[~2021-03-28 13:29] MED LIST changes: +CEFDINIR300 MG PO; +DOXYCYCLINE HY100 MG PO; +PREDNISONE20 MG PO; +TRAZODONE HCL100 MG PO
[2021-03-28] MEDS ORDERED: SODIUM CHLORIDE 0.9% 1000ML 1,000 ML IV SCH (15:30)
[2021-03-28] MEDS ORDERED: DEXAMETHASONE SOD PHOS 10 MG/1 ML VIAL IV ONE (15:45)
[2021-03-28] MEDS ORDERED: DEXAMETHASONE SOD PHOS INJ 4 MG/ML SDV IV ONE (15:45)
[2021-03-28] MEDS ORDERED: DEXAMETHASONE SOD PHOS INJ 4 MG/ML SDV ONE (16:29)
[2021-03-28 17:50] VITALS: BP 128/89
[2021-03-28 19:40] VITALS: BP 130/61
[2021-03-28 21:00] VITALS: BP 144/65
[2021-03-29 01:07] VITALS: BP 144/65
[2021-03-29] MEDS ORDERED: HYDRALAZINE HCL 20 MG/ML VIAL IV PRN (01:30)
[2021-03-29] MEDS ORDERED: ACETAMINOPHEN 325 MG TAB PO PRN (01:30)
[2021-03-29] MEDS ORDERED: POTASSIUM CHLORIDE 20 MEQ TAB CR PO PRN (01:30)
[2021-03-29] MEDS ORDERED: MELATONIN 5 MG TABLET PO PRN (01:30)
[2021-03-29] MEDS ORDERED: SIMETHICONE 80 MG CHEW PO PRN (01:30)
[2021-03-29] MEDS ORDERED: CHLORASEPTIC SPRAY 177 ML BTL MM PRN (01:30)
[2021-03-29] MEDS ORDERED: ONDANSETRON HCL INJ 2MG/ML 2ML 2 MG/ML VIAL IV PRN (01:30)
[2021-03-29] MEDS ORDERED: DEXTROSE 50% SYRINGE 50 ML IV PRN (01:30)
[2021-03-29] MEDS ORDERED: DOCUSATE SODIUM 100 MG CAP PO PRN (01:30)
[2021-03-29] MEDS ORDERED: LIDOCAINE 4% PATCH TP PRN (01:30)
[2021-03-29] MEDS ORDERED: ALBUTEROL/IPRATROPIUM 3 ML NEB NEB PRN (01:30)
[2021-03-29] MEDS ORDERED: DIPHENHYDRAMINE HCL 25 MG CAP PO PRN (01:30)
[2021-03-29] MEDS: IPRATROPIUM/ALBUTEROL SULFATE 4 GM INH INH SCH ×6 (03:25→23:00)
[2021-03-29 05:54] VITALS: BP 144/71
[2021-03-29 06:14] LABS: HEMATOCRIT 45.9 % (34.2-44.1); LYMPHOCYTES # (AUTO) 0.5 (1.0-3.2); MEAN CORPUSCULAR HEMOGLOBIN 30.5 pg (28-32); MEAN CORPUSCULAR HGB CONC 32.7 g/dL (31-35); MEAN CORPUSCULAR VOLUME 93.3 fL (81-99); MONOCYTES # (AUTO) 0.2 (0.2-0.8); MONOCYTES % 6.5 % (4.4-11.3); NEUTROPHILS # (AUTO) 1.7 (2.1-6.9); NEUTROPHILS % 71.1 % (38.7-80.0); PLATELET COUNT 149 x10e3/uL (140-360); RED BLOOD COUNT 4.92 x10e6/uL (3.6-5.1); RED CELL DISTRIBUTION WIDTH 12.4 % (11.7-14.4)
[2021-03-29 06:58] LABS: ANION GAP 9.1 mmol/L (8-16); CALCIUM 9.6 mg/dL (8.4-10.2); CREATININE, SERUM 0.75 mg/dL (0.57-1.11); POTASSIUM 5.1 mmol/L (3.5-5.1)
[2021-03-29 08:10] VITALS: BP 153/67
[2021-03-29 08:30] VITALS: BP 153/67
[2021-03-29] MEDS ORDERED: DEXAMETHASONE SOD PHOS 10 MG/1 ML VIAL IV SCH (09:00)
[2021-03-29] MEDS ORDERED: DEXAMETHASONE PHOS 4MG/ML 5ML MULTIDOSE VIAL IV SCH (09:00)
[2021-03-29] MEDS: PANTOPRAZOLE SOD 40 MG TABEC PO SCH (10:05)
[2021-03-29] MEDS ORDERED: ONDANSETRON HCL 4 MG ORAL DISINTEGRATING TAB PO PRN (12:45)
[2021-03-29] MEDS: CEFTRIAXONE 1 GM in SODIUM CHLORIDE 0.9% 50ML 50 ML IV SCH (13:28)
[2021-03-29] MEDS ORDERED: REMDESIVIR 100MG 200 MG in SODIUM CHLORIDE 0.9% 100 ML IV ONE (14:00)
[2021-03-29] MEDS: ENOXAPARIN SOD INJ 40 MG/0.4 ML SYR SC SCH (16:45)
[2021-03-29 20:00] VITALS: BP 139/80
[2021-03-29 21:25] VITALS: BP 139/80
[2021-03-30 00:21] VITALS: BP 146/81
[2021-03-30] MEDS: IPRATROPIUM/ALBUTEROL SULFATE 4 GM INH INH SCH ×6 (03:00→23:00)
[2021-03-30 04:29] VITALS: BP 130/80
[2021-03-30 06:46] LABS: BASOPHILS % 0.1 % (0.0-1.0); HEMATOCRIT 46.2 % (34.2-44.1); HEMOGLOBIN 15.4 g/dL (12.0-16.0); LYMPHOCYTES # (AUTO) 1.3 (1.0-3.2); LYMPHOCYTES % 14.2 % (18.0-39.1); MEAN CORPUSCULAR HEMOGLOBIN 30.4 pg (28-32); MEAN CORPUSCULAR HGB CONC 33.3 g/dL (31-35); MEAN CORPUSCULAR VOLUME 91.1 fL (81-99); MONOCYTES # (AUTO) 0.7 (0.2-0.8); MONOCYTES % 7.9 % (4.4-11.3); NEUTROPHILS # (AUTO) 7.3 (2.1-6.9); NEUTROPHILS % 77.4 % (38.7-80.0); PLATELET COUNT 156 x10e3/uL (140-360); RED BLOOD COUNT 5.07 x10e6/uL (3.6-5.1); RED CELL DISTRIBUTION WIDTH 12.4 % (11.7-14.4)
[2021-03-30 07:03] LABS: ANION GAP 12.7 mmol/L (8-16); CALCIUM 9.8 mg/dL (8.4-10.2); CREATININE, SERUM 0.75 mg/dL (0.57-1.11); POTASSIUM 4.7 mmol/L (3.5-5.1)
[2021-03-30 08:47] VITALS: BP 136/72
[2021-03-30] MEDS: CEFTRIAXONE 1 GM in SODIUM CHLORIDE 0.9% 50ML 50 ML IV SCH (09:28)
[2021-03-30] MEDS: DEXAMETHASONE SOD PHOS 10 MG/1 ML VIAL IV SCH (09:28)
[2021-03-30] MEDS: PANTOPRAZOLE SOD 40 MG TABEC PO SCH (09:28)
[2021-03-30 11:22] VITALS: BP 136/72
[2021-03-30] MEDS: REMDESIVIR 100MG 100 MG in SODIUM CHLORIDE 0.9% 100 ML IV SCH (15:00)
[2021-03-30] MEDS ORDERED: SODIUM CHLORIDE 0.9% 100 ML ONE (15:07)
[2021-03-30] MEDS ORDERED: REMDESIVIR 100MG 100 MG IV ONE (15:12)
[2021-03-30] MEDS: ENOXAPARIN SOD INJ 40 MG/0.4 ML SYR SC SCH (16:14)
[2021-03-30 20:00] VITALS: BP 158/73
[2021-03-30 22:12] VITALS: BP 158/73
[2021-03-31] VITALS (9 sets, daily range): BP systolic 124–143; BP diastolic 61–85
[2021-03-31] MEDS: IPRATROPIUM/ALBUTEROL SULFATE 4 GM INH INH SCH ×5 (07:00→23:40)
[2021-03-31] MEDS: DEXAMETHASONE SOD PHOS 10 MG/1 ML VIAL IV SCH (08:15)
[2021-03-31] MEDS: CEFTRIAXONE 1 GM in SODIUM CHLORIDE 0.9% 50ML 50 ML IV SCH (08:15)
[2021-03-31] MEDS: PANTOPRAZOLE SOD 40 MG TABEC PO SCH (08:15)
[2021-03-31] MEDS: BENZONATATE 100 MG CAP PO PRN ×2 (10:33→16:36)
[2021-03-31] MEDS: REMDESIVIR 100MG 100 MG in SODIUM CHLORIDE 0.9% 100 ML IV SCH (15:00)
[2021-03-31] MEDS: ENOXAPARIN SOD INJ 40 MG/0.4 ML SYR SC SCH (16:36)
[2021-03-31] MEDS: TRAMADOL HCL 50 MG TAB PO PRN (21:00)
[2021-04-01] MEDS: IPRATROPIUM/ALBUTEROL SULFATE 4 GM INH INH SCH ×3 (03:00→23:25)
[2021-04-01] MEDS: PANTOPRAZOLE SOD 40 MG TABEC PO SCH (08:35)
[2021-04-01] MEDS: DEXAMETHASONE SOD PHOS 10 MG/1 ML VIAL IV SCH (08:35)
[2021-04-01 09:25] VITALS: BP 141/74
[2021-04-01 10:16] VITALS: BP 141/74
[2021-04-01 12:23] VITALS: BP 132/64
[2021-04-01] MEDS: TRAMADOL HCL 50 MG TAB PO PRN (13:31)
[2021-04-01] MEDS: REMDESIVIR 100MG 100 MG in SODIUM CHLORIDE 0.9% 100 ML IV SCH (14:12)
[2021-04-01] MEDS: ENOXAPARIN SOD INJ 40 MG/0.4 ML SYR SC SCH (17:03)
[2021-04-01 18:15] VITALS: BP 140/66
[2021-04-01 20:00] VITALS: BP 130/69
[2021-04-01 21:43] VITALS: BP 130/69
[2021-04-02 00:44] VITALS: BP 160/81
[2021-04-02] MEDS: IPRATROPIUM/ALBUTEROL SULFATE 4 GM INH INH SCH ×4 (03:05→15:00)
[2021-04-02 04:42] VITALS: BP 140/63
[2021-04-02] MEDS: PANTOPRAZOLE SOD 40 MG TABEC PO SCH (07:55)
[2021-04-02 08:33] VITALS: BP 140/69
[2021-04-02 09:02] VITALS: BP 121/69
[2021-04-02] MEDS: DEXAMETHASONE SOD PHOS 10 MG/1 ML VIAL IV SCH (09:02)
[2021-04-02 12:00] VITALS: BP 123/54
[2021-04-02] MEDS: REMDESIVIR 100MG 100 MG in SODIUM CHLORIDE 0.9% 100 ML IV SCH (14:28)
[2021-04-02] MEDS: ENOXAPARIN SOD INJ 40 MG/0.4 ML SYR SC SCH (17:00)
== END 2021-04-02 17:37 | disposition home or self-care (01) | DRG 177 ==
LOC: FSED 13:52 → ERHOLD 15:26 → IMCU 17:30 → OBSVTOIN 03-29 14:45
PROVIDERS: ADMIT Internal Medicine; ATTEND Internal Medicine
PROC: 8E0ZXY6 Isolation (ICD-10-PCS; 2021-03-29)
PROC: XW033E5 Introduction of Remdesivir Anti-infective into Peripheral Vein, Percutaneous Approach, New Technology Group 5 (ICD-10-PCS; principal; 2021-03-30)
DX: U07.1 COVID-19 (principal); J12.82 Pneumonia due to coronavirus disease 2019; J96.91 Respiratory failure, unspecified with hypoxia; J44.1 Chronic obstructive pulmonary disease with (acute) exacerbation; Z99.81 Dependence on supplemental oxygen; M34.9 Systemic sclerosis, unspecified; I27.20 Pulmonary hypertension, unspecified; Z87.891 Personal history of nicotine dependence; R59.9 Enlarged lymph nodes, unspecified
CPT/HCPCS: 36415; 71045; 80048; 80053; 82553; 82948; 84484; 85025; 85379; 87400; 93005; 94799; 99251; 99284; G0378; J0248; J0696; J1100; J1650; J7030; J7050; U0002

== ENCOUNTER → 2021-07-03 | Outpatient (CLI) | payer MEDICARE, OTHER ==
[~2021-07-03] MED LIST changes: +BUSPAR; +ESBRIET267 MG
== END ==
LOC: RESP 12:38
PROVIDERS: ATTEND Internal Medicine Pulmonary Disease
DX: J44.9 Chronic obstructive pulmonary disease, unspecified (principal)
CPT/HCPCS: 94060; 94640

== ENCOUNTER 2021-10-22 11:42 | Emergency (ER) | payer MEDICARE, OTHER ==
[~2021-10-22] VITALS: Ht 162.6 cm; Wt 55.3 kg
[2021-10-22 12:52] LABS: BASOPHILS # (AUTO) 0.1 (0.0-0.1); BASOPHILS % 0.9 % (0.0-1.0); EOSINOPHILS # (AUTO) 0.2 (0.0-0.4); EOSINOPHILS % 2.7 % (0.0-6.0); HEMATOCRIT 44.2 % (34.2-44.1); HEMOGLOBIN 14.7 g/dL (12.0-16.0); LYMPHOCYTES # (AUTO) 1.4 (1.0-3.2); LYMPHOCYTES % 17.5 % (18.0-39.1); MEAN CORPUSCULAR HEMOGLOBIN 30.6 pg (28-32); MEAN CORPUSCULAR HGB CONC 33.3 g/dL (31-35); MEAN CORPUSCULAR VOLUME 92.1 fL (81-99); MONOCYTES # (AUTO) 0.6 (0.2-0.8); NEUTROPHILS # (AUTO) 5.4 (2.1-6.9); NEUTROPHILS % 70.5 % (38.7-80.0); PLATELET COUNT 202 x10e3/uL (140-360); RED CELL DISTRIBUTION WIDTH 12.7 % (11.7-14.4)
[2021-10-22 12:58] LABS: INR 0.91; PARTIAL THROMBOPLASTIN TIME 28.2 seconds (23.8-35.5); PROTHROMBIN TIME 13.1 seconds (11.9-14.5)
[2021-10-22 13:05] LABS: ALBUMIN 3.9 g/dL (3.5-5.0); ANION GAP 14.1 mmol/L (8-16); CALCIUM 9.4 mg/dL (8.4-10.2); CREATININE, SERUM 0.89 mg/dL (0.57-1.11); POTASSIUM 4.1 mmol/L (3.5-5.1)
[2021-10-22 13:12] LABS: CREATINE KINASE MB 1.4 ng/mL (0-5.0)
[2021-10-22] MEDS ORDERED: KETOROLAC TROMETHAMINE 30 MG/ML VIAL IV STA (13:44)
[2021-10-22] MEDS ORDERED: ACETAMINOPHEN 325 MG TAB PO ONE (13:45)
[2021-10-22] MEDS ORDERED: LIDOCAINE 4% PATCH TP SCH (13:45)
== END 2021-10-22 15:37 | disposition home or self-care (01) ==
LOC: ER 12:23
DX: R55 Syncope and collapse (principal); S22.080A Wedge compression fracture of T11-T12 vertebra, initial encounter for closed fracture; S32.010A Wedge compression fracture of first lumbar vertebra, initial encounter for closed fracture; W18.11XA Fall from or off toilet without subsequent striking against object, initial encounter; Y92.091 Bathroom in other non-institutional residence as the place of occurrence of the external cause; M34.9 Systemic sclerosis, unspecified; I27.20 Pulmonary hypertension, unspecified; J44.9 Chronic obstructive pulmonary disease, unspecified; Z20.822 Contact with and (suspected) exposure to COVID-19
CPT/HCPCS: 36415; 70450; 71045; 72125; 72131; 72192; 80053; 82550; 82553; 84484; 85025; 85610; 85730; 93005; 99284; J1885; U0002

== ENCOUNTER → 2022-01-14 | Day surgery (SDC) | payer MEDICARE, OTHER ==
[~2022-01-14] MED LIST changes: +ANORO ELLIPTA1 EACH INH; +CRESTOR10 MG PO; +GLUCAGON FOR INJ 1 MG VIAL ONE; +PREDNISONE5 MG PO; +PROPOFOL IV EMULSION 10 MG/ML 20 ML VIAL ONE
[2022-01-14 12:30] VITALS: BP 101/61
== END | disposition home or self-care (01) ==
LOC: OR 08:33
PROVIDERS: ATTEND Internal Medicine Gastroenterology
DX: R19.5 Other fecal abnormalities (principal); D12.0 Benign neoplasm of cecum; D12.5 Benign neoplasm of sigmoid colon; K29.50 Unspecified chronic gastritis without bleeding; K44.9 Diaphragmatic hernia without obstruction or gangrene; K57.30 Diverticulosis of large intestine without perforation or abscess without bleeding; M34.9 Systemic sclerosis, unspecified; I49.1 Atrial premature depolarization; J44.9 Chronic obstructive pulmonary disease, unspecified; I27.20 Pulmonary hypertension, unspecified; Z79.899 Other long term (current) drug therapy; Z87.891 Personal history of nicotine dependence
CPT/HCPCS: 43239; 45385; 88305; 88342; 93005; J1610; J2704; 45378; 88312

== ENCOUNTER 2022-03-19 13:17 | Outpatient (RCR) | payer MEDICARE, OTHER ==
[~2022-03-19 13:17] MED LIST changes: -GLUCAGON FOR INJ 1 MG VIAL ONE; -PROPOFOL IV EMULSION 10 MG/ML 20 ML VIAL ONE
== END 2022-04-15 ==
LOC: RESP 13:17
PROVIDERS: ATTEND Student in an Organized Health Care Education/Training Program
DX: I27.21 Secondary pulmonary arterial hypertension (principal)
CPT/HCPCS: 94626 ×3; G0238 ×3

== ENCOUNTER 2022-04-16 10:22 | Outpatient (RCR) | payer MEDICARE, OTHER | END 2022-05-13 | LOC: RESP 10:22 | PROVIDERS: ATTEND Student in an Organized Health Care Education/Training Program | DX: I27.21 Secondary pulmonary arterial hypertension (principal) | CPT/HCPCS: 94626 ×2; G0238 ×2 ==